=== PATIENT | female | born 1975 | race Caucasian/White ===

== ENCOUNTER 2017-01-18 11:15 | Emergency (ER) | payer BC ==
[~2017-01-18 11:15] MED LIST changes: -HYDROmorphone (DILAUDID) 2 MG/ML VIAL IVP PRN; -NS IV 1000 ML 1,000 ML IV SCH; -ONDANSETRON 4 MG/2 ML (SDV) Z0FRAN IVP ONE; -PROMETHAZINE INJ 25 MG/ML (PHENERGAN) AMP IM ONE; -PROMETHAZINE INJ 25 MG/ML (PHENERGAN) AMP IVP ONE
--- OUTSIDE RECORDS SUMMARY | 2017-01-18 11:24 | XMS REPORT | Clinical Summary ---
Author Author User, [email or web address] Hilaria Gallego DO, LEONILAP Address Unknown Phone Allergies, Adverse Reactions, Alerts Allergy Name Reaction Description Start Date Severity Status Provider No Known Allergies Elizabeth Adan Conditions or Problems Problem Name Problem Code Onset Date Status Entry Date Provider Comment Standard Description Annotate HEALTH SCREENING V70.0 Resolved Hilaria Gallego Routine general medical examination at a health care facility ABDOMINAL PAIN, GENERALIZED 789.07 Resolved Hilaria Gallego Abdominal pain, generalized DIARRHEA, ACUTE 787.91 Resolved Hilaria Gallego Diarrhea ABDOMINAL PAIN, GENERALIZED 789.07 Resolved Hilaria Gallego Abdominal pain, generalized IBS 564.1 Active Hilaria Gallego Irritable bowel syndrome GRIEF REACTION, ACUTE 309.0 Resolved Hilaria Gallego Adjustment disorder with depressed mood INSOMNIA 780.52 Active Hilaria Gallego Insomnia, unspecified SINUSITIS, SPHENOIDAL, ACUTE 461.3 Resolved Hilaria Gallego Acute sphenoidal sinusitis LARYNGITIS, ACUTE 464.00 Resolved Hilaria Gallego Acute laryngitis without mention of obstruction 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 Hilaria Gallego Trigeminal nerve disorder, unspecified MIGRAINE VARIANT 346.20 Active Hilaria Gallego Variants of migraine, not elsewhere classified, without mention of intractable migraine, without mention of status migrainosus MAMMOGRAM, ABNORMAL, LEFT 793.80 Resolved Hilaria Gallego Abnormal mammogram, unspecified UTI 599.0 Inactive Hilaria Gallego Urinary tract infection, site not specified DERMATITIS, CONTACT, NOS 692.9 Active Hilaria Gallego Contact dermatitis and other eczema, unspecified cause DEHYDRATION 276.51 Inactive Hilaria Gallego Dehydration NAUSEA 787.02 Active Hilaria Gallego Nausea alone Medication List Medication Instructions Start Date Stop Date Generic Name NDC Status Provider Patient Instruction TOPAMAX 25 MG TABS 1 PO BID TOPIRAMATE 74605198544 Active Hilaria Gallego DILAUDID 2 MG TABS 1 PO Daily for severe migraine. HYDROMORPHONE HCL 29151692062 Active Hilaria Gallego MUCINEX D 120-1200 MG [id number] 1 PO BID PSEUDOEPHEDRINE-GUAIFENESIN 17796625238 No Longer Active Hilaria Gallego DEMEROL 50 MG TABS 1 PO ONSET OF MIGRAINE MEPERIDINE HCL 33202440452 No Longer Active Hilaria Gallego CATAFLAM 50 MG TABS 1 PO BID prn headache DICLOFENAC POTASSIUM 60185530055 No Longer Active Hilaria Gallego DICLOFENAC POTASSIUM 50 MG TABS 1 PO BID PRN MIGRAINE DICLOFENAC POTASSIUM 61882359956 Active Hilaria Gallego MAXZIDE-25 TABS 1 TAB PO DAILY PRN DURING MONTHLY CYCLE TRIAMTERENE-HCTZ TABS 73962221069 Active Hilraia Gallego IBUPROFEN 200 MG TABS 800 MG TID PRN PAIN IBUPROFEN 01563054406 Active Hliaria Gallego ZYRTEC 10 MG TAB 1 PO QD CETIRIZINE HCL Active Hilaria Gallego XANAX 0.25 MG TABS 1 PO Q6hrs prn ALPRAZOLAM 32438722733 No Longer Active Hilaria Majo Gallego CELEXA 20 MG TABS 1 PO daily CITALOPRAM HYDROBROMIDE 81057848129 No Longer Active Hilaria Majo Gallego LEVSIN/SL 0.125 MG SUBL 1 tablet under tongue PO QID prn abdominal pain 07/25 HYOSCYAMINE SULFATE 56766283625 No Longer Active Hilaria Majo Gallego CARAFATE 1 GM/10ML SUSP 1 gram PO 30 minutes before meals and at bedtime prn SUCRALFATE 50969521144 No Longer Active Hilaria Majo Gallego FIORICET 50-325-40 MG TABS 2 PO q6hrs prn headache [id number] 28658015070 No Longer Active Hilariadajuan Gallego TRIAMCINOLONE ACETONIDE 0.1 % CREA apply a small amount to affected area BID for 5 days TRIAMCINOLONE ACETONIDE 01123522485 No Longer Active Hilariadajuan Gallego PYRIDIUM 200 MG TAB 1 PO TID prn urinary urgency PHENAZOPYRIDINE HCL 16442492812 No Longer Active Hilaria Majo Gallego BACTRIM DS 800-160 MG TAB 1 PO BID TRIMETHOPRIM- SULFAMETHOXAZOLE 68244170271 No Longer Active Hilariadajuan Gallego ORTHO EVRA 150-20 MCG/24HR PTWK as directed NORELGESTROMIN- ETH ESTRADIOL 19762851833 Active Radha Grewal TRI-SPRINTEC 0.18/0.215/0.25 MG-35 MCG TABS 1 PO daily NORGESTIM-ETH ESTRAD TRIPHASIC 52383862526 No Longer Active Hilaria Majo Gallego OMEPRAZOLE 20 MG CPDR 1 PO BID OMEPRAZOLE 96294121566 No Longer Active Hilaria Gallego ZOFRAN ODT 8 MG TBDP 1 PO q6hrs prn headache ONDANSETRON 38160378133 Active Hilaria Majo Gallego DEMEROL 50 MG TABS 1 PO q4hrs prn headache MEPERIDINE HCL 90092810717 Active Hilaria Majo Gallego BETY-D 12 HOUR 60-120 MG [id number] 1 PO BID FEXOFENADINE- PSEUDOEPHEDRINE 44505863999 No Longer Active Hilariadajuan Gallego AUGMENTIN 500-125 MG TAB 1 PO BID AMOXICILLIN-POT CLAVULANATE 61158138930 No Longer Active Hilaria BERRY'S NASAL SPRAY (DEXAMETHASONE, GENTAMICIN, SALINE) 2 puffs each nostril TID for [address] BERRY'Opal NASAL SPRAY ( DEXAMETHASONE, GENTAMICIN, SALINE) No Longer Active Radha Grewal KENALOG 0.1 % CREA apply to affected areas BID for 7 days TRIAMCINOLONE ACETONIDE No Longer Active Hilaria Gallego ORTHO EVRA 150-20 MCG/24HR PTWK as directed NORELGESTROMIN-ETH ESTRADIOL 49232917167 No Longer Active Marilee Grimm Immunizations Vaccine Administration Date Value Standard Description Comvax, combined Hemophilus influenza B and Hepatitis B virus vaccine Done Haemophilus influenzae type b conjugate and Hepatitis B vaccine Vital Signs Date Name Value Unit Range Description blood pressure, diastolic - 8462-4 81 mm[Hg] BP rogel blood pressure, systolic - 8480-6 123 mm[Hg] BP sys pulse rate E&M - 8867-4 72 /min Heart rate respiratory rate E&M - 9279-1 14 /min Resp rate temperature E&M 98.3 [degF] Body temperature weight E&M - 3141-9 140 [lb_av] Weight Measured blood pressure, diastolic - 8462-4 60 mm[Hg] BP rogel blood pressure, systolic - 8480-6 120 mm[Hg] BP sys pulse rate E&M - 8867-4 60 /min Heart rate respiratory rate E&M - 9279-1 14 /min Resp rate weight E&M - 3141-9 135 [lb_av] Weight Measured blood pressure, diastolic - 8462-4 60 mm[Hg] BP rogel blood pressure, systolic - 8480-6 120 mm[Hg] BP sys pulse rate E&M - 8867-4 80 /min Heart rate respiratory rate E&M - 9279-1 14 /min Resp rate temperature E&M 98.1 [degF] Body temperature blood pressure, diastolic - 8462-4 60 mm[Hg] BP rogel blood pressure, systolic - 8480-6 109 mm[Hg] BP sys pulse rate E&M - 8867-4 72 /min Heart rate respiratory rate E&M - 9279-1 14 /min Resp rate temperature E&M 98.6 [degF] Body temperature weight E&M - 3141-9 145 [lb_av] Weight Measured blood pressure, diastolic - 8462-4 68 mm[Hg] BP rogel blood pressure, systolic - 8480-6 124 mm[Hg] BP sys pulse rate E&M - 8867-4 66 /min Heart rate respiratory rate E&M - 9279-1 14 /min Resp rate Diagnostic Results Date Name Value Unit Range Description Clinical Lists Update: CBC,CMP IN PT LABS - Chemistry Estimated Glomerular Filtration Rate (calc) >60 mL/min/1.73m2 glucose, plasma fasting 90 mg/dL albumin, serum 4.1 g/dL alkaline phosphatase, serum 40 U/L urea nitrogen, blood 9 mg/dL calcium, serum 9.3 mg/dL chloride, serum 106 mmol/L carbon dioxide, venous blood 26 mmol/L sodium, serum 141 mmol/L bilirubin, serum, total 1.0 mg/dL alanine aminotransferase (SGPT), serum 9 U/L aspartate aminotransferase (SGOT), serum 13 U/L protein, total, serum 7.4 g/dL potassium, serum 3.9 mmol/L creatinine, serum 0.77 mg/dL Clinical Lists Update: CBC,CMP IN PT LABS - Hematology platelet count 233 10*3/mm3 erythrocyte (RBC) count 5.08 10*6/mm3 leukocyte count, blood 4.3 10*3/mm3 mean corpuscular volume, RBC 90 fL red blood cell distribution width 12.3 % hemoglobin, blood 15.4 g/dL hematocrit, blood 46 % Encounters Code Encounter Date Provider Facility CPT-24611 Ofc Vst, Est Level IV 16:46:57 CDT Hilaria Gallego DO, FACP CPT-89672 Ofc Vst, Est Level III 18:00:46 CDT Hilaria Gallego DO, FACP CPT-00889 Ofc Vst, Est Level IV 20:45:40 CDT Hilaria Gallego DO, FACP CPT-03019 Ofc Vst, Est Level IV 19:55:04 CDT Hilaria Gallego DO, FACP CPT-44391 Ofc Vst, Est Level III 16:48:19 CDT Hilaria Gallego DO, FACP CPT-51182 Ofc Vst, Est Level III 12:36:36 CDT Hilaria Gallego, DO, FACP CPT-46150 Ofc Vst, Est Level III 09:17:02 CDT Hilaria Majo Abebener Hilaria Opal Lashonda, DO, FACP CPT-98340 Ofc Vst, Est Level IV 11:18:38 CDT Hilaria Majo Abebener Hilaria Opal Lashonda, DO, FACP CPT-15731 Ofc Vst, Est Level III 13:39:42 CDT Hilaria Majo Joseph Lashonda, DO, FACP CPT-47814 Ofc Vst, Est Level IV 10:56:10 [employer]ATH[employer] SCRU[employer] Hilaria Majo Lashonda Hilariadajuan Gallego, DO, FACP CPT-09094 Ofc Vst, Est Level III 10:44:44 LEATH[employer]CRU[employer] Hilaria Majo Lashonda Gallego, DO, FACP CPT-43687 Ofc Vst, Est Level IV 13:09:53 CDT Hilaria Majo Abebener Hilaria Joseph Lashonda, DO, FACP CPT-48287 Ofc Vst, Est Level IV 09:33:25 CDT Hilaria Majo Lashonda Gallego, DO, FACP CPT-76112 Ofc Vst, Est Level IV 14:52:04 LEATH[employer] SCRU[employer] Hilaria Majo Lashonda Gallego, DO, FACP CPT-17385 Ofc Vst, New Level IV 12:52:22 [employer]ATH[employer] Hilaria Majo Lashonda Gallego, DO, FACP
--- OUTSIDE RECORDS SUMMARY | 2017-01-18 11:25 | XMS REPORT | Clinical Summary ---
Author Author User, [employer] Hilaria Gallego DO, LEONILAP Address Unknown Phone [...] 25 MG TABS 1 PO BID TOPIRAMATE 90011520853 Active Hilaria Gallego DILAUDID 2 MG TABS 1 PO Daily for severe migraine. HYDROMORPHONE HCL 99579903461 Active Hilaria Gallego MUCINEX D 120-1200 MG [id number] 1 PO BID PSEUDOEPHEDRINE-GUAIFENESIN 49838722742 No Longer Active Hilaria Gallego DEMEROL 50 MG TABS 1 PO ONSET OF MIGRAINE MEPERIDINE HCL 08930683516 No Longer Active Hilaria Gallego CATAFLAM 50 MG TABS 1 PO BID prn headache DICLOFENAC POTASSIUM 54675649692 No Longer Active Hilaria Gallego DICLOFENAC POTASSIUM 50 MG TABS 1 PO BID PRN MIGRAINE DICLOFENAC POTASSIUM 42134863511 Active Hilaria Gallego MAXZIDE-25 TABS 1 TAB PO DAILY PRN DURING MONTHLY CYCLE TRIAMTERENE-HCTZ TABS 98722869288 Active Hilaria Gallego IBUPROFEN 200 MG TABS 800 MG TID PRN PAIN IBUPROFEN 26007811423 Active Hilaria Gallego ZYRTEC 10 MG TAB 1 PO QD CETIRIZINE HCL Active Hilaria Gallego XANAX 0.25 MG TABS 1 PO Q6hrs prn ALPRAZOLAM 97679049921 No Longer Active Hilaria Majo Gallego CELEXA 20 MG TABS 1 PO daily CITALOPRAM HYDROBROMIDE 96917012726 No Longer Active Hilaria Majo Gallego LEVSIN/SL 0.125 MG SUBL 1 tablet under tongue PO QID prn abdominal pain 07/25 HYOSCYAMINE SULFATE 80481445730 No Longer Active Hilaria Majo Glalego CARAFATE 1 GM/10ML SUSP 1 gram PO 30 minutes before meals and at bedtime prn SUCRALFATE 19172672851 No Longer Active Hilaria Majo Gallego FIORICET 50-325-40 MG TABS 2 PO q6hrs prn headache [id number] 08892512750 No Longer Active Hilariadajuan Gallego TRIAMCINOLONE ACETONIDE 0.1 % CREA apply a small amount to affected area BID for 5 days TRIAMCINOLONE ACETONIDE 70686152034 No Longer Active Hilariadajuan Gallego PYRIDIUM 200 MG TAB 1 PO TID prn urinary urgency PHENAZOPYRIDINE HCL 05423437000 No Longer Active Hilaria Majo Gallego BACTRIM DS 800-160 MG TAB 1 PO BID TRIMETHOPRIM- SULFAMETHOXAZOLE 26299439010 No Longer Active Hilariadajuan Gallego ORTHO EVRA 150-20 MCG/24HR PTWK as directed NORELGESTROMIN- ETH ESTRADIOL 18366691281 Active Radha Grewal TRI-SPRINTEC 0.18/0.215/0.25 MG-35 MCG TABS 1 PO daily NORGESTIM-ETH ESTRAD TRIPHASIC 02437068993 No Longer Active Hilaria Majo Gallego OMEPRAZOLE 20 MG CPDR 1 PO BID OMEPRAZOLE 59620498736 No Longer Active Hilaria Gallego ZOFRAN ODT 8 MG TBDP 1 PO q6hrs prn headache ONDANSETRON 95355717951 Active Hilaria Majo Gallego DEMEROL 50 MG TABS 1 PO q4hrs prn headache MEPERIDINE HCL 62974140065 Active Hilaria Majo Gallego BETY-D 12 HOUR 60-120 MG [id number]-VAU 1 PO BID FEXOFENADINE- PSEUDOEPHEDRINE 68254873894 No Longer Active Hilariadajuan Gallego AUGMENTIN 500-125 MG TAB 1 PO BID AMOXICILLIN-POT CLAVULANATE 62512514332 No Longer Active Hilaria BERRY'S NASAL SPRAY (DEXAMETHASONE, GENTAMICIN, SALINE) 2 puffs each nostril TID for [address] BERRY'Opal NASAL SPRAY ( DEXAMETHASONE, GENTAMICIN, SALINE) No Longer Active Radha Grewal KENALOG 0.1 % CREA apply to affected areas BID for 7 days TRIAMCINOLONE ACETONIDE No Longer Active Hilaria Gallego ORTHO EVRA 150-20 MCG/24HR PTWK as directed NORELGESTROMIN-ETH ESTRADIOL 19098833104 No Longer Active Marilee Grimm Immunizations Vaccine [...] % Encounters Code Encounter Date Provider Facility CPT-70221 Ofc Vst, Est Level IV 16:46:57 CDT Hilaria Gallego DO, FACP CPT-67145 Ofc Vst, Est Level III 18:00:46 CDT Hilaria Gallego DO, FACP CPT-24904 Ofc Vst, Est Level IV 20:45:40 CDT Hilaria Gallego DO, FACP CPT-49036 Ofc Vst, Est Level IV 19:55:04 CDT Hilaria Gallego DO, FACP CPT-78107 Ofc Vst, Est Level III 16:48:19 CDT Hilaria Gallego DO, FACP CPT-74550 Ofc Vst, Est Level III 12:36:36 CDT Hilaria Gallego, DO, FACP CPT-87698 Ofc Vst, Est Level III 09:17:02 CDT Hilaria Majo Abebener Hilaria Opal Lashonda, DO, FACP CPT-30611 Ofc Vst, Est Level IV 11:18:38 CDT Hilaria Majo Abebener Hilaria Opal Lashonda, DO, FACP CPT-08210 Ofc Vst, Est Level III 13:39:42 CDT Hilaria Majo Joseph Lashonda, DO, FACP CPT-45928 Ofc Vst, Est Level IV 10:56:10 [employer]ANNEL SALES MANAGER Hilaria Majo Lashonda Hilariadajuan Gallego, DO, FACP CPT-99413 Ofc Vst, Est Level III 10:44:44 CHANNEL SALES MANAGER Hilaria Majo Lashonda Gallego, DO, FACP CPT-65479 Ofc Vst, Est Level IV 13:09:53 CDT Hilaria Majo Abebener Hilaria Joseph Lashonda, DO, FACP CPT-16455 Ofc Vst, Est Level IV 09:33:25 CDT Hilaria Majo Lashonda Gallego, DO, FACP CPT-86270 Ofc Vst, Est Level IV 14:52:04 CHANNEL SALES MANAGER Hilaria Majo Lashonda Gallego, DO, FACP CPT-02733 Ofc Vst, New Level IV 12:52:22 CHANNEL SALES MANAGER Hilaria Majo Lashonda Gallego, DO, FACP
--- OUTSIDE RECORDS SUMMARY | 2017-01-18 11:25 | XMS REPORT | Clinical Summary ---
Author Author User, [employer] Hilaria Gallego DO, LEONILAP Address Unknown Phone [...] 25 MG TABS 1 PO BID TOPIRAMATE 86944260227 Active Hilaria Gallego DILAUDID 2 MG TABS 1 PO Daily for severe migraine. HYDROMORPHONE HCL 48892832324 Active Hilaria Gallego MUCINEX D 120-1200 MG [id number] 1 PO BID PSEUDOEPHEDRINE-GUAIFENESIN 16491953027 No Longer Active Hilaria Gallego DEMEROL 50 MG TABS 1 PO ONSET OF MIGRAINE MEPERIDINE HCL 09498003137 No Longer Active Hilaria Gallego CATAFLAM 50 MG TABS 1 PO BID prn headache DICLOFENAC POTASSIUM 93846531931 No Longer Active Hilaria Gallego DICLOFENAC POTASSIUM 50 MG TABS 1 PO BID PRN MIGRAINE DICLOFENAC POTASSIUM 72300256959 Active Hilaria Gallego MAXZIDE-25 TABS 1 TAB PO DAILY PRN DURING MONTHLY CYCLE TRIAMTERENE-HCTZ TABS 29785915620 Active Hilaria Gallego IBUPROFEN 200 MG TABS 800 MG TID PRN PAIN IBUPROFEN 15680533000 Active Hilaria Gallego ZYRTEC 10 MG TAB 1 PO QD CETIRIZINE HCL Active Hilaria Gallego XANAX 0.25 MG TABS 1 PO Q6hrs prn ALPRAZOLAM 88856577597 No Longer Active Hilaria Majo Gallego CELEXA 20 MG TABS 1 PO daily CITALOPRAM HYDROBROMIDE 73414951042 No Longer Active Hilaria Majo Gallego LEVSIN/SL 0.125 MG SUBL 1 tablet under tongue PO QID prn abdominal pain 07/25 HYOSCYAMINE SULFATE 51173352835 No Longer Active Hilaria Majo Gallego CARAFATE 1 GM/10ML SUSP 1 gram PO 30 minutes before meals and at bedtime prn SUCRALFATE 13535634925 No Longer Active Hilaria Majo Gallego FIORICET 50-325-40 MG TABS 2 PO q6hrs prn headache [id number] 49978126415 No Longer Active Hilariadajuan Gallego TRIAMCINOLONE ACETONIDE 0.1 % CREA apply a small amount to affected area BID for 5 days TRIAMCINOLONE ACETONIDE 38836682981 No Longer Active Hilariadajuan Gallego PYRIDIUM 200 MG TAB 1 PO TID prn urinary urgency PHENAZOPYRIDINE HCL 50384665414 No Longer Active Hilaria Majo Gallego BACTRIM DS 800-160 MG TAB 1 PO BID TRIMETHOPRIM- SULFAMETHOXAZOLE 68135756456 No Longer Active Hilariadajuan Gallego ORTHO EVRA 150-20 MCG/24HR PTWK as directed NORELGESTROMIN- ETH ESTRADIOL 74454419547 Active Radha Grewal TRI-SPRINTEC 0.18/0.215/0.25 MG-35 MCG TABS 1 PO daily NORGESTIM-ETH ESTRAD TRIPHASIC 49452596018 No Longer Active Hilaria Majo Gallego OMEPRAZOLE 20 MG CPDR 1 PO BID OMEPRAZOLE 70447808747 No Longer Active Hilaria Gallego ZOFRAN ODT 8 MG TBDP 1 PO q6hrs prn headache ONDANSETRON 07902967773 Active Hilaria Majo Gallego DEMEROL 50 MG TABS 1 PO q4hrs prn headache MEPERIDINE HCL 51940989888 Active Hilaria Majo Gallego BETY-D 12 HOUR 60-120 MG [id number]-CFR 1 PO BID FEXOFENADINE- PSEUDOEPHEDRINE 82398753010 No Longer Active Hilariadajuan Gallego AUGMENTIN 500-125 MG TAB 1 PO BID AMOXICILLIN-POT CLAVULANATE 30297537249 No Longer Active Hilaria BERRY'S NASAL SPRAY (DEXAMETHASONE, GENTAMICIN, SALINE) 2 puffs each nostril TID for [address] BERRY'Opal NASAL SPRAY ( DEXAMETHASONE, GENTAMICIN, SALINE) No Longer Active Radha Grewal KENALOG 0.1 % CREA apply to affected areas BID for 7 days TRIAMCINOLONE ACETONIDE No Longer Active Hilaria Gallego ORTHO EVRA 150-20 MCG/24HR PTWK as directed NORELGESTROMIN-ETH ESTRADIOL 24891065848 No Longer Active Marilee Grimm Immunizations Vaccine [...] % Encounters Code Encounter Date Provider Facility CPT-22982 Ofc Vst, Est Level IV 16:46:57 CDT Hilaria Gallego DO, FACP CPT-55588 Ofc Vst, Est Level III 18:00:46 CDT Hilaria Gallego DO, FACP CPT-25215 Ofc Vst, Est Level IV 20:45:40 CDT Hilaria Gallego DO, FACP CPT-71552 Ofc Vst, Est Level IV 19:55:04 CDT Hilaria Gallego DO, FACP CPT-58928 Ofc Vst, Est Level III 16:48:19 CDT Hilaria Gallego DO, FACP CPT-94462 Ofc Vst, Est Level III 12:36:36 CDT Hilaria Gallego, DO, FACP CPT-81725 Ofc Vst, Est Level III 09:17:02 CDT Hilaria Majo Abebener Hilaria Opal Lashonda, DO, FACP CPT-87728 Ofc Vst, Est Level IV 11:18:38 CDT Hilaria Majo Abebener Hilaria Opal Lashonda, DO, FACP CPT-54119 Ofc Vst, Est Level III 13:39:42 CDT Hilaria Majo Joseph Lashonda, DO, FACP CPT-43308 Ofc Vst, Est Level IV 10:56:10 ACADEMIC SUPPORT SPECIALIST Hilaria Majo Lashonda Hilariadajuan Gallego, DO, FACP CPT-94836 Ofc Vst, Est Level III 10:44:44 ACADEMIC SUPPORT SPECIALIST Hilaria Majo Lashonda Gallego, DO, FACP CPT-03526 Ofc Vst, Est Level IV 13:09:53 CDT Hilaria Majo Abebener Hilaria Joseph Lashonda, DO, FACP CPT-46497 Ofc Vst, Est Level IV 09:33:25 CDT Hilaria Majo Lashonda Gallego, DO, FACP CPT-07527 Ofc Vst, Est Level IV 14:52:04 ACADEMIC SUPPORT SPECIALIST Hilaria Maoj Lashonda Gallego, DO, FACP CPT-95405 Ofc Vst, New Level IV 12:52:22 ACADEMIC SUPPORT SPECIALIST Hilaria Majo Lashonda Gallego, DO, FACP
--- OUTSIDE RECORDS SUMMARY | 2017-01-18 11:25 | XMS REPORT | Clinical Summary ---
Author Author User, [employer] Hilaria Gallego DO, LEONILAP Address Unknown Phone [...] 25 MG TABS 1 PO BID TOPIRAMATE 32462956463 Active Hilaria Gallego DILAUDID 2 MG TABS 1 PO Daily for severe migraine. HYDROMORPHONE HCL 78781785510 Active Hilaria Gallego MUCINEX D 120-1200 MG [id number] 1 PO BID PSEUDOEPHEDRINE-GUAIFENESIN 10497893542 No Longer Active Hilaria Gallego DEMEROL 50 MG TABS 1 PO ONSET OF MIGRAINE MEPERIDINE HCL 59509596192 No Longer Active Hilaria Gallego CATAFLAM 50 MG TABS 1 PO BID prn headache DICLOFENAC POTASSIUM 63159403368 No Longer Active Hilaria Gallego DICLOFENAC POTASSIUM 50 MG TABS 1 PO BID PRN MIGRAINE DICLOFENAC POTASSIUM 43145000998 Active Hilaria Gallego MAXZIDE-25 TABS 1 TAB PO DAILY PRN DURING MONTHLY CYCLE TRIAMTERENE-HCTZ TABS 30510679297 Active Hilaria Gallego IBUPROFEN 200 MG TABS 800 MG TID PRN PAIN IBUPROFEN 16349678088 Active Hilaria Gallego ZYRTEC 10 MG TAB 1 PO QD CETIRIZINE HCL Active Hilaria Gallego XANAX 0.25 MG TABS 1 PO Q6hrs prn ALPRAZOLAM 12800839082 No Longer Active Hilaria Majo Gallego CELEXA 20 MG TABS 1 PO daily CITALOPRAM HYDROBROMIDE 41193434896 No Longer Active Hilaria Majo Gallego LEVSIN/SL 0.125 MG SUBL 1 tablet under tongue PO QID prn abdominal pain 07/25 HYOSCYAMINE SULFATE 33165261157 No Longer Active Hilaria Majo Gallego CARAFATE 1 GM/10ML SUSP 1 gram PO 30 minutes before meals and at bedtime prn SUCRALFATE 35629108366 No Longer Active Hilaria Majo Gallego FIORICET 50-325-40 MG TABS 2 PO q6hrs prn headache [id number] 48872842799 No Longer Active Hilariadajuan Gallego TRIAMCINOLONE ACETONIDE 0.1 % CREA apply a small amount to affected area BID for 5 days TRIAMCINOLONE ACETONIDE 85005179111 No Longer Active Hilariadajuan Gallego PYRIDIUM 200 MG TAB 1 PO TID prn urinary urgency PHENAZOPYRIDINE HCL 53879485788 No Longer Active Hilaria Majo Gallego BACTRIM DS 800-160 MG TAB 1 PO BID TRIMETHOPRIM- SULFAMETHOXAZOLE 89207813960 No Longer Active Hilariadajuan Gallego ORTHO EVRA 150-20 MCG/24HR PTWK as directed NORELGESTROMIN- ETH ESTRADIOL 41570219335 Active Radha Grewal TRI-SPRINTEC 0.18/0.215/0.25 MG-35 MCG TABS 1 PO daily NORGESTIM-ETH ESTRAD TRIPHASIC 95815815635 No Longer Active Hilaria Majo Gallego OMEPRAZOLE 20 MG CPDR 1 PO BID OMEPRAZOLE 95745313952 No Longer Active Hilaria Gallego ZOFRAN ODT 8 MG TBDP 1 PO q6hrs prn headache ONDANSETRON 14060864471 Active Hilaria Majo Gallego DEMEROL 50 MG TABS 1 PO q4hrs prn headache MEPERIDINE HCL 08406001823 Active Hilaria Majo Gallego BETY-D 12 HOUR 60-120 MG [id number]-[id number] 1 PO BID FEXOFENADINE- PSEUDOEPHEDRINE 67116037431 No Longer Active Hilariadajuan Gallego AUGMENTIN 500-125 MG TAB 1 PO BID AMOXICILLIN-POT CLAVULANATE 87401015154 No Longer Active Hilaria BERRY'S NASAL SPRAY (DEXAMETHASONE, GENTAMICIN, SALINE) 2 puffs each nostril TID for [address] BERRY'Opal NASAL SPRAY ( DEXAMETHASONE, GENTAMICIN, SALINE) No Longer Active Radha Grewal KENALOG 0.1 % CREA apply to affected areas BID for 7 days TRIAMCINOLONE ACETONIDE No Longer Active Hilaria Gallego ORTHO EVRA 150-20 MCG/24HR PTWK as directed NORELGESTROMIN-ETH ESTRADIOL 42025093475 No Longer Active Marilee Grimm Immunizations Vaccine [...] % Encounters Code Encounter Date Provider Facility CPT-02577 Ofc Vst, Est Level IV 16:46:57 CDT Hilaria Gallego DO, FACP CPT-17194 Ofc Vst, Est Level III 18:00:46 CDT Hilaria Gallego DO, FACP CPT-97186 Ofc Vst, Est Level IV 20:45:40 CDT Hilaria Gallego DO, FACP CPT-84828 Ofc Vst, Est Level IV 19:55:04 CDT Hilaria Gallego DO, FACP CPT-46214 Ofc Vst, Est Level III 16:48:19 CDT Hilaria Gallego DO, FACP CPT-90660 Ofc Vst, Est Level III 12:36:36 CDT Hilaria Gallego, DO, FACP CPT-73118 Ofc Vst, Est Level III 09:17:02 CDT Hilaria Majo Abebener Hilaria Opal Lashonda, DO, FACP CPT-09739 Ofc Vst, Est Level IV 11:18:38 CDT Hilaria Majo Abebener Hilaria Opal Lashonda, DO, FACP CPT-11744 Ofc Vst, Est Level III 13:39:42 CDT Hilaria Majo Joseph Lashonda, DO, FACP CPT-42176 Ofc Vst, Est Level IV 10:56:10 SNOW MAKER Hilaria Majo Lashonda Hilariadajuan Gallego, DO, FACP CPT-43527 Ofc Vst, Est Level III 10:44:44 SNOW MAKER Hilaria Majo Lashonda Gallego, DO, FACP CPT-43290 Ofc Vst, Est Level IV 13:09:53 CDT Hilaria Majo Abebener Hilaria Joseph Lashonda, DO, FACP CPT-50923 Ofc Vst, Est Level IV 09:33:25 CDT Hilaria Majo Lashonda Gallego, DO, FACP CPT-18404 Ofc Vst, Est Level IV 14:52:04 SNOW MAKER Hilaria Majo Lashonda Gallego, DO, FACP CPT-21809 Ofc Vst, New Level IV 12:52:22 SNOW MAKER Hilaria Majo Lashonda Gallego, DO, FACP
--- OUTSIDE RECORDS SUMMARY | 2017-01-18 11:26 | XMS REPORT | Continuity of Care Document ---
Author Author [facility] Organization [facility] Address Unknown Phone Unavailable Allergies Active Description Code Type Severity Reaction Onset Reported/Identified Relationship to Patient Clinical Status Yes No Known Drug Allergies [id number] Drug Allergy Unknown N/ A 08/26/2014 Medications Problems Date Dx Coded Attending Type Code Diagnosis Diagnosed By 08/27/2014 QUIROGA DO, ARIEL Ot 276.51 08/27/2014 QUIROGA DO, ARIEL Ot 346.90 09/17/2014 QUIROGA DO, ARIEL Ot 784.0 2015 Ot 793.80 2015 Ot 793.82 2015 Ot V76.12 2015 QUIROGA DO, ARIEL Ot 793.80 04/15/2015 QUIROGA DO, ARIEL Ot 784.0 04/15/2015 QUIROGA DO, ARIEL Ot Z12.31 04/20/2015 QUIROGA DO, ARIEL Ot 784.0 04/20/2015 QUIROGA DO, ARIEL Ot Z12.31 05/03/2015 QUIROGA DO, ARIEL Ot 784.0 05/03/2015 QUIROGA DO, ARIEL Ot Z12.31 08/04/2015 QUIROGA DO, ARIEL Ot 784.0 08/04/2015 QUIROGA DO, ARIEL Ot Z12.31 Procedures Results Encounters ACCT No. Visit Date/Time Discharge Status Pt. Type Provider Facility Loc./Unit Complaint [id number] 04/08/2015 07:27:00 2014 23:59:59 CLS Outpatient QUIROGA DO, ARIEL [facility] RAD [id number] 10/11/2014 07:30:00 2014 23:59:59 CLS Preadmit QUIROGA DO, ARIEL [facility] RAD [id number] 09/02/2014 14:27:00 2014 23:59:59 CLS Outpatient QUIROGA DO, ARIEL [facility] RAD [id number] 08/26/2014 15:05:00 2014 12:15:00 DIS Inpatient ARIEL QUIROGA DO [facility] 4TH [id number] 03/26/2013 14:11:00 2012 23:59:59 CLS Outpatient [id number] 10/02/2012 07:22:00 2012 23:59:59 CLS Outpatient ARIEL QUIROGA DO [facility] RAD [id number] 08/27/2014 10:10:00 Document Registration [id number] 09/16/2012 07:17:00 Document Registration [id number] 09/18/2011 10:28:00 Document Registration
--- OUTSIDE RECORDS SUMMARY | 2017-01-18 11:26 | XMS REPORT | Clinical Summary ---
Author Author User, [employer] Organization Hilaria Gallego DO, LEONILAP Address Unknown [...] pain, generalized DIARRHEA, ACUTE 787.91 Resolved Hilaria Galelgo Diarrhea ABDOMINAL PAIN, GENERALIZED 789.07 Resolved Hilaria [...] 25 MG TABS 1 PO BID TOPIRAMATE 97600612274 Active Hilaria Gallego DILAUDID 2 MG TABS 1 PO Daily for severe migraine. HYDROMORPHONE HCL 66162922700 Active Hilaria Gallego MUCINEX D 120-1200 MG [id number] 1 PO BID PSEUDOEPHEDRINE-GUAIFENESIN 91833957915 No Longer Active Hilaria Gallego DEMEROL 50 MG TABS 1 PO ONSET OF MIGRAINE MEPERIDINE HCL 73829731522 No Longer Active Hilaria Gallego CATAFLAM 50 MG TABS 1 PO BID prn headache DICLOFENAC POTASSIUM 11604126856 No Longer Active Hilaria Gallego DICLOFENAC POTASSIUM 50 MG TABS 1 PO BID PRN MIGRAINE DICLOFENAC POTASSIUM 91761637895 Active Hilaria Gallego MAXZIDE-25 TABS 1 TAB PO DAILY PRN DURING MONTHLY CYCLE TRIAMTERENE-HCTZ TABS 55709998435 Active Hilaria Gallego IBUPROFEN 200 MG TABS 800 MG TID PRN PAIN IBUPROFEN 17383840603 Active Hilaria Gallego ZYRTEC 10 MG TAB 1 PO QD CETIRIZINE HCL Active Hilaria Gallego XANAX 0.25 MG TABS 1 PO Q6hrs prn ALPRAZOLAM 74953751989 No Longer Active Hilaria Majo Gallego CELEXA 20 MG TABS 1 PO daily CITALOPRAM HYDROBROMIDE 82033826256 No Longer Active Hilaria Majo Gallego LEVSIN/SL 0.125 MG SUBL 1 tablet under tongue PO QID prn abdominal pain 07/25 HYOSCYAMINE SULFATE 00124690832 No Longer Active Hilaria Majo Gallego CARAFATE 1 GM/10ML SUSP 1 gram PO 30 minutes before meals and at bedtime prn SUCRALFATE 36235896295 No Longer Active Hilaria Majo Gallego FIORICET 50-325-40 MG TABS 2 PO q6hrs prn headache [id number] 85356390642 No Longer Active Hilariadajuan Gallego TRIAMCINOLONE ACETONIDE 0.1 % CREA apply a small amount to affected area BID for 5 days TRIAMCINOLONE ACETONIDE 25540857134 No Longer Active Hilariadajuan Gallego PYRIDIUM 200 MG TAB 1 PO TID prn urinary urgency PHENAZOPYRIDINE HCL 25940582833 No Longer Active Hilaria Majo Gallego BACTRIM DS 800-160 MG TAB 1 PO BID TRIMETHOPRIM- SULFAMETHOXAZOLE 52623620256 No Longer Active Hilariadajuan Gallego ORTHO EVRA 150-20 MCG/24HR PTWK as directed NORELGESTROMIN- ETH ESTRADIOL 51731778601 Active Radha Grewal TRI-SPRINTEC 0.18/0.215/0.25 MG-35 MCG TABS 1 PO daily NORGESTIM-ETH ESTRAD TRIPHASIC 52648564902 No Longer Active Hilaria Majo Gallego OMEPRAZOLE 20 MG CPDR 1 PO BID OMEPRAZOLE 74177247879 No Longer Active Hilaria Gallego ZOFRAN ODT 8 MG TBDP 1 PO q6hrs prn headache ONDANSETRON 08938529671 Active Hilaria Majo Gallego DEMEROL 50 MG TABS 1 PO q4hrs prn headache MEPERIDINE HCL 88713273505 Active Hilaria Majo Gallego BETY-D 12 HOUR 60-120 MG [id number]-[id number] 1 PO BID FEXOFENADINE- PSEUDOEPHEDRINE 67369798091 No Longer Active Hilariadajuan Gallego AUGMENTIN 500-125 MG TAB 1 PO BID AMOXICILLIN-POT CLAVULANATE 54398167791 No Longer Active Hilaria BERRY'S NASAL SPRAY (DEXAMETHASONE, GENTAMICIN, SALINE) 2 puffs each nostril TID for [address] BERRY'Opal NASAL SPRAY ( DEXAMETHASONE, GENTAMICIN, SALINE) No Longer Active Radha Grewal KENALOG 0.1 % CREA apply to affected areas BID for 7 days TRIAMCINOLONE ACETONIDE No Longer Active Hilaria Gallego ORTHO EVRA 150-20 MCG/24HR PTWK as directed NORELGESTROMIN-ETH ESTRADIOL 25583608826 No Longer Active Marilee Grimm Immunizations Vaccine [...] % Encounters Code Encounter Date Provider Facility CPT-41869 Ofc Vst, Est Level IV 16:46:57 CDT Hilaria Gallego DO, FACP CPT-04886 Ofc Vst, Est Level III 18:00:46 CDT Hilaria Gallego DO, FACP CPT-48874 Ofc Vst, Est Level IV 20:45:40 CDT Hilaria Gallego DO, FACP CPT-15525 Ofc Vst, Est Level IV 19:55:04 CDT Hilaria Gallego DO, FACP CPT-90935 Ofc Vst, Est Level III 16:48:19 CDT Hilaria Gallego DO, FACP CPT-39035 Ofc Vst, Est Level III 12:36:36 CDT Hilaria Gallego, DO, FACP CPT-05529 Ofc Vst, Est Level III 09:17:02 CDT Hilaria Majo Abebener Hilaria Opal Lashonda, DO, FACP CPT-51307 Ofc Vst, Est Level IV 11:18:38 CDT Hilaria Majo Abebener Hilaria Opal Lashonda, DO, FACP CPT-55087 Ofc Vst, Est Level III 13:39:42 CDT Hilaria Majo Joseph Lashonda, DO, FACP CPT-67903 Ofc Vst, Est Level IV 10:56:10 BURNISHER Hilaria Majo Lashonda Hilariadajuan Gallego, DO, FACP CPT-95114 Ofc Vst, Est Level III 10:44:44 BURNISHER Hilaria Majo Lashonda Gallego, DO, FACP CPT-53018 Ofc Vst, Est Level IV 13:09:53 CDT Hilaria Majo Abebener Hilaria Joseph Lashonda, DO, FACP CPT-89185 Ofc Vst, Est Level IV 09:33:25 CDT Hilaria Majo Lashonda Gallego, DO, FACP CPT-90100 Ofc Vst, Est Level IV 14:52:04 BURNISHER Hilaria Majo Lashonda Gallego, DO, FACP CPT-48004 Ofc Vst, New Level IV 12:52:22 BURNISHER Hilaria Majo Lashonda Gallego, DO, FACP
--- OUTSIDE RECORDS SUMMARY | 2017-01-18 11:26 | XMS REPORT | Clinical Summary ---
Author Author User, [employer] Organization Hilaria Gallego DO, LEONILAP Address Unknown [...] 25 MG TABS 1 PO BID TOPIRAMATE 13732119934 Active Hilaria Gallego DILAUDID 2 MG TABS 1 PO Daily for severe migraine. HYDROMORPHONE HCL 29993652051 Active Hilaria Gallego MUCINEX D 120-1200 MG [id number] 1 PO BID PSEUDOEPHEDRINE-GUAIFENESIN 71915144764 No Longer Active Hilaria Gallego DEMEROL 50 MG TABS 1 PO ONSET OF MIGRAINE MEPERIDINE HCL 29750410512 No Longer Active Hilaria Gallego CATAFLAM 50 MG TABS 1 PO BID prn headache DICLOFENAC POTASSIUM 51064838171 No Longer Active Hilaria Gallego DICLOFENAC POTASSIUM 50 MG TABS 1 PO BID PRN MIGRAINE DICLOFENAC POTASSIUM 78532204372 Active Hilaria Gallego MAXZIDE-25 TABS 1 TAB PO DAILY PRN DURING MONTHLY CYCLE TRIAMTERENE-HCTZ TABS 90826679395 Active Hilaria Gallego IBUPROFEN 200 MG TABS 800 MG TID PRN PAIN IBUPROFEN 71257464109 Active Hilaria Gallego ZYRTEC 10 MG TAB 1 PO QD CETIRIZINE HCL Active Hilaria Gallego XANAX 0.25 MG TABS 1 PO Q6hrs prn ALPRAZOLAM 93928138059 No Longer Active Hilaria Majo Gallego CELEXA 20 MG TABS 1 PO daily CITALOPRAM HYDROBROMIDE 19913113150 No Longer Active Hilaria Majo Gallego LEVSIN/SL 0.125 MG SUBL 1 tablet under tongue PO QID prn abdominal pain 07/25 HYOSCYAMINE SULFATE 49196387832 No Longer Active Hilaria Majo Gallego CARAFATE 1 GM/10ML SUSP 1 gram PO 30 minutes before meals and at bedtime prn SUCRALFATE 79195123552 No Longer Active Hilaria Majo Gallego FIORICET 50-325-40 MG TABS 2 PO q6hrs prn headache [id number] 61494580167 No Longer Active Hilariadajuan Gallego TRIAMCINOLONE ACETONIDE 0.1 % CREA apply a small amount to affected area BID for 5 days TRIAMCINOLONE ACETONIDE 31619732322 No Longer Active Hilariadajuan Gallego PYRIDIUM 200 MG TAB 1 PO TID prn urinary urgency PHENAZOPYRIDINE HCL 04278470510 No Longer Active Hilaria Majo Galelgo BACTRIM DS 800-160 MG TAB 1 PO BID TRIMETHOPRIM- SULFAMETHOXAZOLE 73029465361 No Longer Active Hilariadajuan Gallego ORTHO EVRA 150-20 MCG/24HR PTWK as directed NORELGESTROMIN- ETH ESTRADIOL 84607535653 Active Radha Grewal TRI-SPRINTEC 0.18/0.215/0.25 MG-35 MCG TABS 1 PO daily NORGESTIM-ETH ESTRAD TRIPHASIC 68774128304 No Longer Active Hilaria Majo Gallego OMEPRAZOLE 20 MG CPDR 1 PO BID OMEPRAZOLE 24695137532 No Longer Active Hilaria Gallego ZOFRAN ODT 8 MG TBDP 1 PO q6hrs prn headache ONDANSETRON 18554568821 Active Hilaria Majo Gallego DEMEROL 50 MG TABS 1 PO q4hrs prn headache MEPERIDINE HCL 32452441808 Active Hilaria Majo Gallego BETY-D 12 HOUR 60-120 MG [id number]-BCA 1 PO BID FEXOFENADINE- PSEUDOEPHEDRINE 73476341111 No Longer Active Hilariadajuan Gallego AUGMENTIN 500-125 MG TAB 1 PO BID AMOXICILLIN-POT CLAVULANATE 80028725501 No Longer Active Hilaria BERRY'S NASAL SPRAY (DEXAMETHASONE, GENTAMICIN, SALINE) 2 puffs each nostril TID for [address] BERRY'Opal NASAL SPRAY ( DEXAMETHASONE, GENTAMICIN, SALINE) No Longer Active Radha Grewal KENALOG 0.1 % CREA apply to affected areas BID for 7 days TRIAMCINOLONE ACETONIDE No Longer Active Hilaria Gallego ORTHO EVRA 150-20 MCG/24HR PTWK as directed NORELGESTROMIN-ETH ESTRADIOL 77247323943 No Longer Active Marilee Grimm Immunizations Vaccine [...] % Encounters Code Encounter Date Provider Facility CPT-21241 Ofc Vst, Est Level IV 16:46:57 CDT Hilaria Gallego DO, FACP CPT-21374 Ofc Vst, Est Level III 18:00:46 CDT Hilaria Gallego DO, FACP CPT-38812 Ofc Vst, Est Level IV 20:45:40 CDT Hilaria Gallego DO, FACP CPT-13703 Ofc Vst, Est Level IV 19:55:04 CDT Hilaria Gallego DO, FACP CPT-41679 Ofc Vst, Est Level III 16:48:19 CDT Hilaria Gallego DO, FACP CPT-99467 Ofc Vst, Est Level III 12:36:36 CDT Hilaria Gallego, DO, FACP CPT-88775 Ofc Vst, Est Level III 09:17:02 CDT Hilaria Majo Abebener Hilaria Opal Lashonda, DO, FACP CPT-24847 Ofc Vst, Est Level IV 11:18:38 CDT Hilaria Majo Abebener Hilaria Opal Lashonda, DO, FACP CPT-75040 Ofc Vst, Est Level III 13:39:42 CDT Hilaria Majo Joseph Lashonda, DO, FACP CPT-64782 Ofc Vst, Est Level IV 10:56:10 [employer]EARCH ASSISTANT MEMBER Hilaria Majo Lashonda Hilariadajuan Gallego, DO, FACP CPT-42807 Ofc Vst, Est Level III 10:44:44 RESEARCH ASSISTANT MEMBER Hilaria Majo Lashonda Gallego, DO, FACP CPT-56334 Ofc Vst, Est Level IV 13:09:53 CDT Hilaria Majo Abebener Hilaria Joseph Lashonda, DO, FACP CPT-92839 Ofc Vst, Est Level IV 09:33:25 CDT Hilaria Majo Lashonda Gallego, DO, FACP CPT-37693 Ofc Vst, Est Level IV 14:52:04 RESEARCH ASSISTANT MEMBER Hilaria Majo Lashonda Gallego, DO, FACP CPT-97598 Ofc Vst, New Level IV 12:52:22 RESEARCH ASSISTANT MEMBER Hilaria Majo Lashonda Gallego, DO, FACP
== END 2017-01-18 12:40 | disposition left against medical advice (07) ==
LOC: EDUNIT# 11:15 → ER 11:19
DX: G43.909 Migraine, unspecified, not intractable, without status migrainosus (principal)

== ENCOUNTER → 2017-01-18 | Outpatient (CLI) | payer BC ==
[~2017-01-18] VITALS: Ht 165.1 cm; Wt 61.0 kg
[~2017-01-18] MED LIST: CETI10TA17 PO; DICL50TA4 PO; GUAI-365 PO; HYDROmorphone (DILAUDID) 2 MG/ML VIAL IVP PRN; IBUP-15 PO; MEPE50TA PO; NORE1PAT7 TD; NS IV 1000 ML 1,000 ML IV SCH; ONDA8TAB13 PO; ONDANSETRON 4 MG/2 ML (SDV) Z0FRAN IVP ONE; PROMETHAZINE INJ 25 MG/ML (PHENERGAN) AMP IM ONE; PROMETHAZINE INJ 25 MG/ML (PHENERGAN) AMP IVP ONE; TRIA1TAB3 PO
[2017-01-18 14:08] VITALS: BP 104/71
== END ==
LOC: SDC 12:53
PROVIDERS: ATTEND Internal Medicine
DX: G43.909 Migraine, unspecified, not intractable, without status migrainosus (principal); R11.2 Nausea with vomiting, unspecified; E86.0 Dehydration
CPT/HCPCS: 96360; 96372; 96375

== ENCOUNTER → 2017-08-26 | Outpatient (CLI) | payer BC ==
[~2017-08-26] MED LIST changes: +RT-ALBUTEROL SULF 2.5 MG/3 ML PRE-MIX VIAL INH ONE
== END ==
LOC: RT 16:42
PROVIDERS: ATTEND Internal Medicine
DX: J45.909 Unspecified asthma, uncomplicated (principal)
CPT/HCPCS: 94060; 94726; 94729

== ENCOUNTER → 2017-10-17 | Outpatient (CLI) | payer BC ==
[~2017-10-17] MED LIST changes: -RT-ALBUTEROL SULF 2.5 MG/3 ML PRE-MIX VIAL INH ONE
--- NOTE | 2017-10-17 14:19 | Diagnostic Imaging Report ---
INDICATION: Pneumonia. COMPARISON: None. FINDINGS: Two views of the chest are obtained. Heart size is normal. The pulmonary vessels appear unremarkable. There is no pneumothorax, mediastinal widening or pleural fluid. There is moderate to severe pectus excavatum deformity. The lungs are clear. The osseous structures are otherwise unremarkable. IMPRESSION: No acute abnormality is seen. There is prominent pectus excavatum deformity. Dictated by: Dictated on workstation # [id number]
== END ==
LOC: RAD 13:57
PROVIDERS: ATTEND Internal Medicine
DX: J18.9 Pneumonia, unspecified organism (principal); Q33.8 Other congenital malformations of lung
CPT/HCPCS: 71046

== ENCOUNTER → 2018-02-21 | Outpatient (CLI) | payer BC ==
--- NOTE | 2018-02-21 15:56 | Diagnostic Imaging Report ---
INDICATION: Fall with right hand pain. AP, oblique, and lateral views of the right hand are obtained. No fracture or acute bony abnormality is seen. IMPRESSION: Negative right hand. Dictated by: Dictated on workstation # [id number]
--- NOTE | 2018-02-21 16:04 | Diagnostic Imaging Report ---
INDICATION: Fall with right wrist injury. AP, oblique, and lateral views of the right wrist are obtained. No fracture or acute bony abnormality is seen. Joint spaces are unremarkable. IMPRESSION: Negative right wrist. Dictated by: Dictated on workstation # [id number]
== END ==
LOC: RAD 15:31
PROVIDERS: ATTEND Nurse Practitioner Family
DX: S69.91XA Unspecified injury of right wrist, hand and finger(s), initial encounter (principal); M79.641 Pain in right hand; W19.XXXA Unspecified fall, initial encounter
CPT/HCPCS: 73110; 73130

== ENCOUNTER 2018-03-24 20:50 | Observation (INO) | payer BC ==
[~2018-03-24] VITALS: Ht 166.4 cm; Wt 64.1 kg
--- OUTSIDE RECORDS SUMMARY | 2018-03-24 20:54 | XMS REPORT | Clinical Summary ---
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
--- OUTSIDE RECORDS SUMMARY | 2018-03-24 20:56 | XMS REPORT | Continuity of Care Document ---
Author Author [facility] Organization [facility] Address Unknown Phone Unavailable Allergies Active Description Code Type Severity Reaction Onset Reported/Identified Relationship to Patient Clinical Status Yes No Known Drug Allergies [id number] Drug Allergy Unknown N/A 08/26/2014 Medications There is no data. Problems Date Dx Coded Attending Type Code Diagnosis Diagnosed By 08/27/2014 ARIEL QUIROGA DO Ot 276.51 DEHYDRATION 08/27/2014 KIMBER TREVIZO ARIEL Ot 346.90 MIGRAINE UNSPECIFIED W/O INTRACT MGRN W/ 09/17/2014 KIMBER TREVIZO ARIEL Ot 784.0 2015 Ot 793.80 2015 Ot 793.82 2015 Ot V76.12 2015 KIMBER DO, ARIEL Ot 793.80 04/15/2015 QUIROGA DO, ARIEL Ot 784.0 04/15/2015 QUIROGA DO, ARIEL Ot Z12.31 04/20/2015 QUIROGA DO, ARIEL Ot 784.0 04/20/2015 QUIROGA DO, ARIEL Ot Z12.31 05/03/2015 QUIROGA DO, ARIEL Ot 784.0 05/03/2015 QUIROGA DO, ARIEL Ot Z12.31 08/04/2015 QUIROGA DO, ARIEL Ot 784.0 08/04/2015 QUIROGA DO, ARIEL Ot Z12.31 01/18/2017 QUIROGA DO, ARIEL Ot 784.0 HEADACHE 01/18/2017 QUIROGA DO, ARIEL Ot Z12.31 ENCNTR SCREEN MAMMOGRAM FOR MALIGNANT NE 01/23/2017 KIMBER TREVIZO ARIEL Ot E86.0 DEHYDRATION 01/23/2017 KIMBER TREVIZO ARIEL Ot G43.909 MIGRAINE, UNSP, NOT INTRACTABLE, WITHOUT 01/23/2017 KIMBER TREVIZO RAIEL Ot R11.2 NAUSEA WITH VOMITING, UNSPECIFIED 02/05/2017 KIMBER TREVIZO ARIEL Ot E86.0 DEHYDRATION 02/05/2017 QUIROGAARIEL HEAD DO Ot G43.909 MIGRAINE, UNSP, NOT INTRACTABLE, WITHOUT 02/05/2017 ARIEL QUIROGA DO Ot R11.2 NAUSEA WITH VOMITING, UNSPECIFIED 08/27/2017 ARIEL QUIROGA DO Ot J45.909 UNSPECIFIED ASTHMA, UNCOMPLICATED 09/01/2017 QUIROGADERIC HEAD DOI Ot J45.909 UNSPECIFIED ASTHMA, UNCOMPLICATED 09/16/2017 QUIROGAARIEL HEAD DO Ot J45.909 UNSPECIFIED ASTHMA, UNCOMPLICATED 10/18/2017 DERIC QUIROGA DOI Ot J18.9 PNEUMONIA, UNSPECIFIED ORGANISM 10/18/2017 QUIROGADERIC HEAD DOI Ot 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 10/30/2017 ARIEL QUIROGA DO Ot J18.9 PNEUMONIA, UNSPECIFIED ORGANISM 10/30/2017 QUIROGASONIDO TREVIZO ARIEL Ot 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 01/28/2018 ARIEL QUIROGA DO Ot 611.72 LUMP OR MASS IN BREAST 01/28/2018 ARIEL QUIROGA DO Ot 793.80 UNSPEC ABNORMAL MAMMOGRAM 02/24/2018 ALON BROWN EXHIBIT BUILDER Ot M79.641 PAIN IN RIGHT HAND 02/24/2018 ALON BROWN APRN Ot S69.91XA UNSP INJURY OF RIGHT WRIST, HAND AND FIN 02/24/2018 ALON BROWN EXHIBIT BUILDER Ot W19.XXXA UNSPECIFIED FALL, INITIAL ENCOUNTER 03/05/2018 ALON BROWN EXHIBIT BUILDER Ot M79.641 PAIN IN RIGHT HAND 03/05/2018 ALON BROWN EXHIBIT BUILDER Ot S69.91XA UNSP INJURY OF RIGHT WRIST, HAND AND FIN 03/05/2018 ALON BROWN EXHIBIT BUILDER Ot W19.XXXA UNSPECIFIED FALL, INITIAL ENCOUNTER Procedures There is no data. Results There is no data. Encounters ACCT No. Visit Date/Time Discharge Status Pt. Type Provider Facility Loc./Unit Complaint [id number] 02/21/2018 15:31:00 02/21/2018 23:59:59 CLS Outpatient ALON BROWN APRN [facility] RAD RIGHT HAND XRAY [id number] 10/17/2017 13:57:00 10/17/2017 23:59:59 CLS Outpatient QUIROGA DO, ARIEL [facility] RAD PNEUMONIA [id number] 08/26/2017 16:42:00 08/26/2017 23:59:59 CLS Outpatient QUIROGA DO, ARIEL [facility] RT UNSPECIFIED ASTHMA [id number] 07/22/2017 11:36:00 07/22/2017 23:59:59 CLS Preadmit QUIROGA DO, ARIEL [facility] RT UNSPECIFIED ASTHMA, UNCOMPLICATED [id number] 04/22/2017 16:05:00 04/22/2017 23:59:59 CLS Preadmit QUIROGA DO, ARIEL [facility] RAD SCREENING [id number] 01/18/2017 12:53:00 01/18/2017 23:59:59 CLS Outpatient QUIROGA DO, ARIEL [facility] SDC MIGRAIN,N/V DEYDRATION [id number] 01/18/2017 11:19:00 01/18/2017 12:40:00 DIS Emergency ZULEMA DO YONI K [facility] ER MIGRAINE [id number] 04/08/2015 07:27:00 04/08/2015 23:59:59 CLS Outpatient QUIROGA DO, ARIEL [facility] RAD SCREENING [id number] 10/11/2014 07:30:00 10/11/2014 23:59:59 CLS Preadmit QUIROGA DO, ARIEL [facility] RAD SCREENING [id number] 09/02/2014 14:27:00 09/02/2014 23:59:59 CLS Outpatient QUIROGA DO, ARIEL [facility] RAD HEADACHE [id number] 08/26/2014 15:05:00 08/27/2014 12:15:00 DIS Inpatient QUIROGA DO, ARIEL [facility] 4TH MIGRAINES [id number] 03/26/2013 14:11:00 03/26/2013 23:59:59 CLS Outpatient QUIROGA DO, ARIEL [facility] RAD ABNORMAL MAMMO [id number] 10/02/2012 07:22:00 10/02/2012 23:59:59 CLS Outpatient QUIROGA DO, ARIEL [facility] RAD [id number] 03/24/2018 20:51:00 ACT Emergency LIZBETH YANCEY, MARSHA Veliz [facility] ER DIZZINESS [id number] 08/27/2014 10:10:00 Document Registration [id number] 09/16/2012 07:17:00 Document Registration [id number] 09/18/2011 10:28:00 Document Registration [id number] 09/02/2014 14:27:42 ACT Document Registration
[2018-03-24 21:13] VITALS: BP 135/106
[2018-03-24] MEDS ORDERED: NS 250 ML (IVPB) BAG IV ONE (21:30)
[2018-03-24] MEDS ORDERED: IOHEXOL 350 MG/ML 100 ML (OMNIPAQUE 350) VIAL IV ONE (21:30)
[2018-03-24 21:36] LABS: BASOPHILS # (AUTO) 0.1 10^3/uL (0.0-0.1); BASOPHILS % (AUTO) 1 % (0-10); EOSINOPHILS # (AUTO) 0.4 10^3/uL (0.0-0.3); EOSINOPHILS % (AUTO) 7 % (0-10); HEMATOCRIT 41 % (35-52); HEMOGLOBIN 13.8 G/DL (11.5-16.0); LYMPHOCYTES # (AUTO) 1.6 X 10^3 (1.0-4.0); LYMPHOCYTES % (AUTO) 30 % (12-44); MEAN CORPUSCULAR HEMOGLOBIN 30 PG (25-34); MEAN CORPUSCULAR HGB CONC 34 G/DL (32-36); MEAN CORPUSCULAR VOLUME 89 FL (80-99); MEAN PLATELET VOLUME 10.3 FL (7.4-10.4); MONOCYTES # (AUTO) 0.6 X 10^3 (0.0-1.0); MONOCYTES % (AUTO) 10 % (0-12); NEUTROPHILS # (AUTO) 2.8 X 10^3 (1.8-7.8); NEUTROPHILS % (AUTO) 51 % (42-75); PLATELET COUNT 238 10^3/uL (130-400); RED BLOOD COUNT 4.59 10^6/uL (4.35-5.85); RED CELL DISTRIBUTION WIDTH 12.4 % (10.0-14.5); WHITE BLOOD COUNT 5.4 10^3/uL (4.3-11.0)
[2018-03-24 21:50] LABS: FIBRIN DEGRADATION PRODUCTS <= 0.27 UG/ML (0.00-0.49); PARTIAL THROMBOPLASTIN TIME 28 SEC (24-35); PROTHROMBIN TIME PATIENT 13.1 SEC (12.2-14.7)
[2018-03-24 21:53] LABS: ALANINE AMINOTRANSFERASE 12 U/L (0-55); ALBUMIN 4.6 GM/DL (3.2-4.5); ALKALINE PHOSPHATASE 58 U/L (40-136); BILIRUBIN,TOTAL 0.6 MG/DL (0.1-1.0); BUN/CREATININE RATIO 16; CALCIUM 9.7 MG/DL (8.5-10.1); CARBON DIOXIDE 22 MMOL/L (21-32); CHLORIDE 105 MMOL/L (98-107); CREATININE SERUM 0.83 MG/DL (0.60-1.30); GFR ESTIMATED > 60; GLUCOSE 103 MG/DL (70-105); POTASSIUM 3.5 MMOL/L (3.6-5.0); SODIUM 140 MMOL/L (135-145); TOTAL PROTEIN 7.4 GM/DL (6.4-8.2)
--- NOTE | 2018-03-24 22:26 | Diagnostic Imaging Report ---
PROCEDURE: CT angiography of the head and CT angiography of the neck with and without contrast. TECHNIQUE: Contiguous noncontrast images were obtained from the skull base through the vertex. After intravenous contrast administration, helical CT angiography of the neck was performed. Source data was reformatted into multiple 2D MIP projections. Delayed post contrast acquisition was also obtained. INDICATION: Stroke activation, dizziness, listing to the right. COMPARISON: None FINDINGS: Noncontrast CT head: Some asymmetry with the left lateral ventricle smaller than the right likely of no significance. The ventricles and sulci are otherwise unremarkable. No abnormal areas of decreased attenuation to suggest edema. No midline shift or mass effect. No intracranial hemorrhage. CTA overall is compromised at the contrast bolus timing. CTA NECK: Aorta: Aortic arch is limited in evaluation with artifact present. Does appear relatively normal, with standard three vessel branching pattern. Common carotid artery: The origin of the bilateral common carotid arteries are patent. No stenosis of the common carotid arteries in the neck. Internal carotid arteries: No significant stenosis of the internal carotid arteries. The cervical segments of the bilateral ICAs are patent. External carotid arteries: The proximal external carotid arteries are patent and without significant stenosis. Vertebral arteries: Origins of the bilateral vertebral arteries are limited in visualization. Vertebral arteries are co-dominant. The vertebral arteries are patent and without suggestion of dissection or stenosis. Non-vascular: No concerning cervical lymphadenopathy. The airway is patent. Thyroid and salivary glands appearing normal. No concerning lesion in the cervical spine. CTA HEAD: Anterior Circulation: The terminal ICAs are not well contrast-filled and therefore evaluated but appear generally unremarkable. The bilateral middle cerebral arteries are patent and without stenosis. The anterior cerebral arteries are patent and without stenosis. Posterior Circulation: Posterior fossa not well assessed. The bilateral intracranial segments of the vertebral arteries are patent. The basilar artery is patent and without stenosis. The right posterior inferior cerebellar artery cannot be identified. What appears to be left-sided is wispy in appearance. The posterior cerebral arteries are patent. Post Contrast Head: No concerning enhancement on delayed post-contrast imaging. Dural venous sinuses appearing patent. IMPRESSION: 1. The posterior fossa circulation is not well assessed. The right posterior inferior cerebellar artery cannot be identified. Remainder of the [place] of [place] otherwise generally unremarkable. 2. Negative CTA of the neck. Findings have been telephoned to the emergency department, 10:05 PM Dictated by: Dictated on workstation # [id number]
[2018-03-24] MEDS ORDERED: MECLIZINE 25 MG (ANTIVERT) TAB PO ONE (22:30)
[2018-03-24 22:45] LABS: BILIRUBIN,URINE NEGATIVE (NEGATIVE); CLARITY,URINE CLEAR; COLOR,URINE YELLOW; GLUCOSE, URINE (UA) NEGATIVE (NEGATIVE); KETONES,URINE NEGATIVE (NEGATIVE); LEUKOCYTE ESTERASE ,URINE 1+ (NEGATIVE); NITRITE,URINE NEGATIVE (NEGATIVE); PH,URINE 7 (5-9); PROTEIN,URINE NEGATIVE (NEGATIVE); UROBILINOGEN,URINE NORMAL (NORMAL)
[2018-03-24 22:52] LABS: BACTERIA,URINE FEW /HPF
--- NOTE | 2018-03-24 23:04 | ED Neurological Problem ---
General Chief Complaint: Dizziness/Syncope Stated Complaint: DIZZINESS Nursing Triage Note: pt states that she felt slightly dizzy at dinner, tonight after she stood up while drying her hair after the shower the room started to spin. Denies striking her head, but states she fell against the bathroom door. denies nausea. states she still feels off. Occurrence was roughly at 20:30 per pt. Nursing Sepsis Screen: No Definite Risk Source: patient Exam Limitations: no limitations History of Present Illness Date Seen by Provider: Mar 24, 2018 Time Seen by Provider: 09:05 Initial Comments This 42-year-old woman presents to the emergency room with complaints of sudden onset of disequilibrium. Symptoms started while she was sitting at the table eating dinner. She denies any chest pain or palpitations. The sensation is not vertigo as she has no spinning sensation. She does want to tilt to the right and actually bumped into a wall while walking. She required assistance to walk into the emergency room. Last known well time was at 20:30. She was not feeling well prior to that but did not experience disequilibrium until 20: 30. She initially thought she was having some allergy problems and took Lynn. She has never experienced a sensation quite like this before. Patient takes oral control due to problems with hormonally triggered migraines. She has never had any symptoms of disequilibrium with a migraine. She also takes triamterene for chronic fluid retention. She also takes Botox injections for migraine prophylaxis. She denies any tobacco use. She occasionally drinks wine but has not had any alcohol today. Her primary care provider is Dr. Quiroga. She has no focal deficits on initial assessment. Stroke activation was paged during initial assessment. Fingerstick blood sugar was 94. Allergies and Home Medications Allergies Coded Allergies: No Known Drug Allergies (Unverified , 03/24/18) Home Medications Cetirizine Hcl 10 Mg Tablet, 10 MG PO DAILY PRN for ALLERGIES, (Reported) Diclofenac Potassium 50 Mg Tablet, 50 MG PO BID PRN for MIGRAINE, (Reported) Guaifenesin/P-Ephed Hcl 1 Each Tab.sr.12h, 1 TAB PO BID PRN for CONGESTION, ( Reported) Ibuprofen 200 Mg Tablet, 800 MG PO TID PRN for PAIN, (Reported) TAKES 4 (200MG) TABLETS Meperidine Hcl 50 Mg Tablet, 50 MG PO Q6H Prescribed by: ARIEL QUIROGA on 08/27/14 1116 Norelgestromin/Ethin.estradiol 1 Each Patch.tdwk, 1 PATCH TD UD, (Reported) WEAR FOR 3 WEEKS THEN OFF FOR 1 WEEK Ondansetron 8 Mg Tab.rapdis, 8 MG PO Q6H PRN for NAUSEA, (Reported) Triamterene/Hydrochlorothiazid 1 Udtab Tablet, 1 TAB PO DAILY PRN for DURING MONTHLY CYCLE, (Reported) Patient Home Medication List Home Medication List Reviewed: Yes Review of Systems Review of Systems Constitutional: no symptoms reported Eyes: No Symptoms Reported Ears, Nose, Mouth, Throat: no symptoms reported Respiratory: no symptoms reported Cardiovascular: no symptoms reported Gastrointestinal: no symptoms reported Genitourinary: no symptoms reported : No Musculoskeletal: no symptoms reported Skin: no symptoms reported Psychiatric/Neurological: See HPI Endocrine: No Symptoms Reported Hematologic/Lymphatic: No Symptoms Reported Past Wfrvwmn-Qvkteb-Fwhjca Hx Past Med/Social Hx: Reviewed Nursing Past Med/Soc Hx Patient Social History Alcohol Use: Occasionally Uses Alcohol Beverage of Choice: Wine Recreational Drug Use: No Smoking Status: Never a Smoker Recent Foreign Travel: No Contact w/Someone Who Travel: No Recent Infectious Disease Expo: No Recent Hopitalizations: No Immunizations Up To Date Date of Influenza Vaccine: Mar 03, 2014 Past Medical History Surgeries: Yes Adenoidectomy, Tonsillectomy Respiratory: Yes (PNEUMONIA A CHILD) Asthma, Pneumonia Cardiac: Yes Chronic Edema/Swelling Neurological: Yes Headaches /Migraines : No (uses control) Reproductive Disorders: No Genitourinary: No Gastrointestinal: No Musculoskeletal: No Endocrine: No HEENT: No Cancer: No Psychosocial: No Integumentary: No Blood Disorders: No Family Medical History Reviewed Nursing Family Hx Colonic polyps 19 FATHER DVT 19 FATHER FH: CABG (coronary artery bypass surgery) Hypercholesterolemia 19 MOTHER Hypertension 19 MOTHER MATERNAL GRANDMOTHER Pituitary disease 19 FATHER Physical Exam Vital Signs Vital Signs - First Documented 03/24/18 20:56 Temp 98.3 Pulse 77 Resp 20 B/P (MAP) 129/82 (98) Pulse Ox 99 O2 Delivery Room Air Capillary Refill : Less Than 3 Seconds Height, Weight, BMI Height: 5'5.00" Weight: 140lbs. 8.0oz. 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 Hollister-Hallpike to the left also caused a vertigo type sensation.) Skin: normal color, warm/dry Stroke NIH Stroke Scale Assessment Level of Consciousness: 0=Alert (0), Level of Consciousness-Questions: 0= Answers both month/age (0), LOC Commands: 0=Performs both tasks (0), Visual Quintana: 0=No visual loss (0), Facial Movement (Facial Paresis): 0=Normal symmetrical mnt (0), Motor Function-Arms Right: 0=No drift (0), Motor Function- Arms Left: 0=No drift (0), Motor Function-Legs Right: 0=No drift (0), Motor Function-Legs Left: 0=No drift (0), Limb Ataxia: 0=Absent (0), Sensory: 0=Normal :no loss (0), Best Language: 0=No aphasia (0), Dysarthria: 0=Normal (0), Extinction & Inattention: 0=No abnormality (0), Total: 0 Progress/Results/Core Measures Results/Orders Lab Results Laboratory Tests Test 03/24/18 21:16 03/24/18 21:24 03/24/18 22:35 Range/Units Glucometer 94 70-110 MG/DL White Blood Count 5.4 4.3-11.0 10^3/uL Red Blood Count 4.59 4.35-5.85 10^6/uL Hemoglobin 13.8 11.5-16.0 G/DL Hematocrit 41 35-52 % Mean Corpuscular Volume 89 80-99 FL Mean Corpuscular Hemoglobin 30 25-34 PG Mean Corpuscular Hemoglobin Concent 34 32-36 G/DL Red Cell Distribution Width 12.4 10.0-14.5 % Platelet Count 238 130-400 10^3/uL Mean Platelet Volume 10.3 7.4-10.4 FL Neutrophils (%) (Auto) 51 42-75 % Lymphocytes (%) (Auto) 30 12-44 % Monocytes (%) (Auto) 10 0-12 % Eosinophils (%) (Auto) 7 0-10 % Basophils (%) (Auto) 1 0-10 % Neutrophils # (Auto) 2.8 1.8-7.8 X 10^3 Lymphocytes # (Auto) 1.6 1.0-4.0 X 10^3 Monocytes # (Auto) 0.6 0.0-1.0 X 10^3 Eosinophils # (Auto) 0.4 H 0.0-0.3 10^3/uL Basophils # (Auto) 0.1 0.0-0.1 10^3/uL Prothrombin Time 13.1 12.2-14.7 SEC INR Comment 1.0 0.8-1.4 Activated Partial Thromboplast Time 28 24-35 SEC D-Dimer <= 0.27 0.00-0.49 UG/ML Sodium Level 140 135-145 MMOL/L Potassium Level 3.5 L 3.6-5.0 MMOL/L Chloride Level 105 98-107 MMOL/L Carbon Dioxide Level 22 21-32 MMOL/L Anion Gap 13 5-14 MMOL/L Blood Urea Nitrogen 13 7-18 MG/DL Creatinine 0.83 0.60-1.30 MG/DL Estimat Glomerular Filtration Rate > 60 BUN/Creatinine Ratio 16 Glucose Level 103 70-105 MG/DL Calcium Level 9.7 8.5-10.1 MG/DL Corrected Calcium 8.5-10.1 MG/DL Total Bilirubin 0.6 0.1-1.0 MG/DL Aspartate Amino Transf (AST/SGOT) 15 5-34 U/L Alanine Aminotransferase (ALT/SGPT) 12 0-55 U/L Alkaline Phosphatase 58 40-136 U/L Troponin I < 0.30 <0.30 NG/ML Total Protein 7.4 6.4-8.2 GM/DL Albumin 4.6 H 3.2-4.5 GM/DL Serum Test, Qualitative NEGATIVE NEGATIVE Urine Color YELLOW Urine Clarity CLEAR Urine pH 7 5-9 Urine Specific [place] 1.010 L 1.016-1.022 Urine Protein NEGATIVE NEGATIVE Urine Glucose (UA) NEGATIVE NEGATIVE Urine Ketones NEGATIVE NEGATIVE Urine Nitrite NEGATIVE NEGATIVE Urine Bilirubin NEGATIVE NEGATIVE Urine Urobilinogen NORMAL NORMAL MG/DL Urine Leukocyte Esterase 1+ H NEGATIVE Urine RBC (Auto) NEGATIVE NEGATIVE Urine RBC NONE /HPF Urine WBC 5-10 H /HPF Urine Squamous Epithelial Cells 10-25 H /HPF Urine Crystals NONE /LPF Urine Bacteria FEW H /HPF Urine Casts NONE /LPF Urine Mucus NEGATIVE /LPF Urine Culture Indicated YES My Orders Orders - MARSHA NIEVES MD Ct Angio Head/Neck (03/24/18 21:20) Cbc With Automated Diff (03/24/18:20) Protime With Inr (03/24/18:20) Partial Thromboplastin Time (03/24/18:20) Comprehensive Metabolic Panel (03/24/18 21:20) Fibrin Degradation Products (03/24/18 21:20) Troponin I (03/24/18 21:20) Ua Culture If Indicated (03/24/18:20) Chest 1 View, Ap/Pa Only (03/24/18 21:20) Ekg Tracing (03/24/18 21:20) Accucheck Stat ONCE (03/24/18 21:20) Saline Lock/Iv-Start (03/24/18 21:20) Saline Lock/Iv-Start (03/24/18 21:20) Vital Signs Stroke Patient Q15M (03/24/18 21:20) O2 (03/24/18 21:20) Intake & Output 06,14,22 (03/24/18 21:20) Monitor-Rhythm Ecg Trace Only (03/24/18 21:20) Dysphagia Screening Tool (03/24/18 21:20) Post Thrombolytic Adminstratio (03/24/18 21:20) Lipid Panel (03/25/18 06:00) Iohexol Injection (Omnipaque 350 Mg/Ml 1 (03/24/18 21:30) Ns (Ivpb) (Sodium Chloride 0.9%) (03/24/18 21:30) Meclizine Tablet (Antivert Tablet) (03/24/18 22:30) Hcg,Qualitative Serum (03/24/18 22:21) Urine Culture (03/24/18 22:35) Medications Given in ED Current Medications Medications Dose Ordered Sig/Josi Route Start Time Stop Time Status Last Admin Dose Admin Iohexol 75 ml ONCE ONCE IV 03/24/18 21:30 03/24/18 21:31 DC 03/24/18 21:33 75 ML Meclizine HCl 25 mg ONCE ONCE PO 03/24/18 22:30 03/24/18 22:31 DC 03/24/18 22:26 25 MG Sodium Chloride 250 ml ONCE ONCE IV 03/24/18 21:30 03/24/18 21:31 DC 03/24/18 21:33 80 ML Vital Signs/I&O 03/24/18 03/24/18 03/24/18 20:56 20:58 21:13 Temp 98.3 Pulse 77 73 Resp 20 18 B/P (MAP) 129/82 (98) 135/106 Pulse Ox 99 98 99 O2 Delivery Room Air Room Air 03/25/18 00:00 Intake Total 0 ml Output Total 0 ml Balance 0 ml Blood Pressure Mean: 98 FSBG Bedside Testing Finger Stick Blood Glucose: 94 Progress Progress Note : Progress Note Stroke activation was paged as patient's symptoms did not quite fit the picture of vertigo or labyrinthitis. She had no nystagmus on Hollister-Hallpike or with any movement of the head. She did have development of a vertigo type dizziness with Hollister-Hallpike to the left. Jonh-Hallpike on each side was converted into Mely maneuver. Neither Mely maneuver resolved her symptoms. CT angiogram of the head and neck was performed. Results were discussed with the radiologist. The quality of the exam limited its utility. The radiologist was concerned that there was no visible right PICA. Dr. De La O, stroke neurologist at [facility] was contacted at 22:25. He doubted the patient's symptoms were related to stroke but stated a small cerebellar infarct was possible. He advised offering patient TPA but he did not feel that TPA was strongly advisable. He did recommend treating with aspirin if TPA was not given. He states the strokes causing these types of symptoms tend to recover fairly well even without TPA administration. I discussed risks and benefits of TPA administration with the patient and her . They elect to forego the TPA. Dr. De La O's recommendation patient was admitted for observation with an MRI ordered for the morning. She did receive meclizine in the ER and she felt this didn't improve her dizziness/disequilibrium. Initial ECG Impression Date: Mar 24, 2018 Initial ECG Impression Time: 21:44 Initial ECG Rate: 80 Initial ECG Rhythm: Normal Sinus Initial ECG Impression: Normal Comment Normal sinus rhythm with no ST elevation or depression. No abnormal intervals or axis deviation. Diagnostic Imaging Diagonstic Imaging: CT Plain Films/CT/US/NM/MRI: other (CT angiogram head and neck) Comments CT angiogram head and neck viewed by me and report reviewed. See report below: NAME: [facility] REC#: [id number] PT STATUS: REG ER : 1975 PHYSICIAN: MARSHA NIEVES MD ADMIT DATE: 03/24/18/ER Draft Date of Exam:03/24/18 CT ANGIO HEAD/NECK PROCEDURE: CT angiography of the head and CT angiography of the neck with and without contrast. TECHNIQUE: Contiguous noncontrast images were obtained from the skull base through the vertex. After intravenous contrast administration, helical CT angiography of the neck was performed. Source data was reformatted into multiple 2D MIP projections. Delayed post contrast acquisition was also obtained. INDICATION: Stroke activation, dizziness, listing to the right. COMPARISON: None FINDINGS: Noncontrast CT head: Some asymmetry with the left lateral ventricle smaller than the right likely of no significance. The ventricles and sulci are otherwise unremarkable. No abnormal areas of decreased attenuation to suggest edema. No midline shift or mass effect. No intracranial hemorrhage. CTA overall is compromised at the contrast bolus timing. CTA NECK: Aorta: Aortic arch is limited in evaluation with artifact present. Does appear relatively normal, with standard three vessel branching pattern. Common carotid artery: The origin of the bilateral common carotid arteries are patent. No stenosis of the common carotid arteries in the neck. Internal carotid arteries: No significant stenosis of the internal carotid arteries. The cervical segments of the bilateral ICAs are patent. External carotid arteries: The proximal external carotid arteries are patent and without significant stenosis. Vertebral arteries: Origins of the bilateral vertebral arteries are limited in visualization. Vertebral arteries are co-dominant. The vertebral arteries are patent and without suggestion of dissection or stenosis. Non-vascular: No concerning cervical lymphadenopathy. The airway is patent. Thyroid and salivary glands appearing normal. No concerning lesion in the cervical spine. CTA HEAD: Anterior Circulation: The terminal ICAs are not well contrast-filled and therefore evaluated but appear generally unremarkable. The bilateral middle cerebral arteries are patent and without stenosis. The anterior cerebral arteries are patent and without stenosis. Posterior Circulation: Posterior fossa not well assessed. The bilateral intracranial segments of the vertebral arteries are patent. The basilar artery is patent and without stenosis. The right posterior inferior cerebellar artery cannot be identified. What appears to be left-sided is wispy in appearance. The posterior cerebral arteries are patent. Post Contrast Head: No concerning enhancement on delayed post-contrast imaging. Dural venous sinuses appearing patent. IMPRESSION: 1. The posterior fossa circulation is not well assessed. The right posterior inferior cerebellar artery cannot be identified. Remainder of the [place] otherwise generally unremarkable. 2. Negative CTA of the neck. Findings have been telephoned to the emergency department, 10:05 PM Dictated on workstation # [id number] Dict: 03/24/182200 Trans: 03/24/18 2225 [facility] [id number] Interpreted by: WANDER ALONSOgonsbryan Imaging: Xray Plain Films/CT/US/NM/MRI: chest Comments Chest x-ray viewed by me and report not yet available. No acute abnormalities appreciated. Departure Communication (Admissions) Time/Spoke to Admitting Phy: 23:00 Dr. Flores Impression Primary Impression: Disequilibrium Additional Impression: Dizziness Disposition: ADMITTED INPATIENT Condition: Improved Admissions Decision to Admit Reason: Admit from ER (General) Decision to Admit/Date: Mar 24, 2018 Time/Decision to Admit Time: 23:00 Departure-Patient Inst. Referrals: ARIEL QUIROGA DO (PCP/Family) Primary Care Physician Copy Copies To 1: ARIEL QUIROGA JOSHUA T MD Mar 24, 2018 23:04
--- OUTSIDE RECORDS SUMMARY | 2018-03-24 23:17 | XMS REPORT | Clinical Summary ---
Author Author [facility] Organization [facility] Address Unknown Phone Unavailable Care Team Providers Care Document Examiner Name Role Phone PCP Unavailable Allergies Not [...]
--- OUTSIDE RECORDS SUMMARY | 2018-03-24 23:20 | XMS REPORT | Continuity of Care Document ---
Author Author [facility] Organization [facility] Address Unknown Phone Unavailable Allergies Active Description Code Type Severity Reaction Onset Reported/Identified Relationship to Patient Clinical Status Yes No Known Drug Allergies [id number] Drug Allergy Unknown N/A 08/26/2014 Medications There [...] UNSP, NOT INTRACTABLE, WITHOUT 01/23/2017 KIMBER TREVIZO ARIEL Ot R11.2 NAUSEA WITH VOMITING, UNSPECIFIED 02/05/2017 KIMBER TREVIZO ARIEL Ot E86.0 DEHYDRATION 02/05/2017 QUIROGA ARIEL TREVIZO Ot G43.909 MIGRAINE, UNSP, NOT INTRACTABLE, WITHOUT 02/05/2017 QUIROGADERIC HEAD DOI Ot R11.2 NAUSEA WITH VOMITING, UNSPECIFIED 08/27/2017 QUIROGADERIC HEAD DOI Ot J45.909 UNSPECIFIED ASTHMA, UNCOMPLICATED 09/01/2017 KIMBER DO ARIEL Ot J45.909 UNSPECIFIED ASTHMA, UNCOMPLICATED 09/16/2017 QUIROGA DERIC TREVIZOI Ot J45.909 UNSPECIFIED ASTHMA, UNCOMPLICATED 10/18/2017 QUIROGA DO ARIEL Ot J18.9 PNEUMONIA, UNSPECIFIED ORGANISM 10/18/2017 QUIROGA DO ARIEL Ot 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 10/30/2017 QUIROGASONIDO TREVIZO ARIEL Ot J18.9 PNEUMONIA, UNSPECIFIED ORGANISM 10/30/2017 QUIROGA DO ARIEL Ot 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 01/28/2018 DERIC QUIROGA DOI Ot 611.72 LUMP OR MASS IN BREAST 01/28/2018 DERIC QUIROGA DOI Ot 793.80 UNSPEC ABNORMAL MAMMOGRAM 02/24/2018 ALON BROWN PLUNGER SCOOP OPERATOR Ot M79.641 PAIN IN RIGHT HAND 02/24/2018 ALON BROWN PLUNGER SCOOP OPERATOR Ot S69.91XA UNSP INJURY OF RIGHT WRIST, HAND AND FIN 02/24/2018 STEPHANIE ALON L PLUNGER SCOOP OPERATOR Ot W19.XXXA UNSPECIFIED FALL, INITIAL ENCOUNTER 03/05/2018 ALON BROWN PLUNGER SCOOP OPERATOR Ot M79.641 PAIN IN RIGHT HAND 03/05/2018 ALON BROWN PLUNGER SCOOP OPERATOR Ot S69.91XA UNSP INJURY OF RIGHT WRIST, HAND AND FIN 03/05/2018 ALON BROWN PLUNGER SCOOP OPERATOR Ot W19.XXXA UNSPECIFIED FALL, INITIAL ENCOUNTER Procedures There is no data. Results Test Result Range Capillary blood glucose measurement by glucometer (mass/volume) - 03/24/18 21: 16 Capillary blood glucose measurement by glucometer (mass/volume) 94 mg/dL 70-110 Complete blood count (CBC) with automated white blood cell (WBC) differential - 03/24/18 21:24 Blood leukocytes automated count (number/volume) 5.4 10*3/uL 4.3-11.0 Blood erythrocytes automated count (number/volume) 4.59 10*6/uL 4.35-5.85 Venous blood hemoglobin measurement (mass/volume) 13.8 g/dL 11.5-16.0 Blood hematocrit (volume fraction) 41 % 35-52 Automated erythrocyte mean corpuscular volume 89 [foz_us] 80-99 Automated erythrocyte mean corpuscular hemoglobin (mass per erythrocyte) 30 pg 25-34 Automated erythrocyte mean corpuscular hemoglobin concentration measurement ( mass/volume) 34 g/dL 32-36 Automated erythrocyte distribution width ratio 12.4 % 10.0-14.5 Automated blood platelet count (count/volume) 238 10*3/uL 130-400 Automated blood platelet mean volume measurement 10.3 [foz_us] 7.4-10.4 Automated blood neutrophils/100 leukocytes 51 % 42-75 Automated blood lymphocytes/100 leukocytes 30 % 12-44 Blood monocytes/100 leukocytes 10 % 0-12 Automated blood eosinophils/100 leukocytes 7 % 0-10 Automated blood basophils/100 leukocytes 1 % 0-10 Blood neutrophils automated count (number/volume) 2.8 10*3 1.8-7.8 Blood lymphocytes automated count (number/volume) 1.6 10*3 1.0-4.0 Blood monocytes automated count (number/volume) 0.6 10*3 0.0-1.0 Automated eosinophil count 0.4 10*3/uL 0.0-0.3 Automated blood basophil count (count/volume) 0.1 10*3/uL 0.0-0.1 Comprehensive metabolic panel - 03/24/18 21:24 Serum or plasma sodium measurement (moles/volume) 140 mmol/L 135-145 Serum or plasma potassium measurement (moles/volume) 3.5 mmol/L 3.6-5.0 Serum or plasma chloride measurement (moles/volume) 105 mmol/L 98-107 Carbon dioxide 22 mmol/L 21-32 Serum or plasma anion gap determination (moles/volume) 13 mmol/L 5-14 Serum or plasma urea nitrogen measurement (mass/volume) 13 mg/dL 7-18 Serum or plasma creatinine measurement (mass/volume) 0.83 mg/dL 0.60-1.30 Serum or plasma urea nitrogen/creatinine mass ratio 16 NRG Serum or plasma creatinine measurement with calculation of estimated glomerular filtration rate > NRG Serum or plasma glucose measurement (mass/volume) 103 mg/dL 70-105 Serum or plasma calcium measurement (mass/volume) 9.7 mg/dL 8.5-10.1 Serum or plasma total bilirubin measurement (mass/volume) 0.6 mg/dL 0.1-1.0 Serum or plasma alkaline phosphatase measurement (enzymatic activity/volume) 58 U/L 40-136 Serum or plasma aspartate aminotransferase measurement (enzymatic activity/ volume) 15 U/L 5-34 Serum or plasma alanine aminotransferase measurement (enzymatic activity/volume ) 12 U/L 0-55 Serum or plasma protein measurement (mass/volume) 7.4 g/dL 6.4-8.2 Serum or plasma albumin measurement (mass/volume) 4.6 g/dL 3.2-4.5 PT panel in platelet poor plasma by coagulation assay - 03/24/18 21:24 Prothrombin time (PT) in platelet poor plasma by coagulation assay 13.1 s 12.2-14.7 INR in platelet poor plasma or blood by coagulation assay 1.0 0.8-1.4 Activated partial thromboplastin time (aPTT) in platelet poor plasma bycoagulation assay - 03/24/18 21:24 Activated partial thromboplastin time (aPTT) in platelet poor plasma bycoagulation assay 28 s 24-35 Fibrin D-dimer FEU measurement in platelet poor plasma (mass/volume) - 21:24 Fibrin D-dimer FEU measurement in platelet poor plasma (mass/volume) <=ug/mL 0.00-0.49 Serum or plasma troponin i.cardiac measurement (mass/volume) - 03/24/18 21:24 Serum or plasma troponin i.cardiac measurement (mass/volume) < ng/ mL <0.30 Serum or plasma choriogonadotropin ( test) detection - 03/24/18 21:24 Serum or plasma choriogonadotropin ( test) detection NEGATIVE NEGATIVE Complete urinalysis with reflex to culture - 03/24/18 22:35 Urine color determination YELLOW NRG Urine clarity determination CLEAR NRG Urine pH measurement by test strip 7 5-9 Specific gravity of urine by test strip 1.010 1.016- 1.022 Urine protein assay by test strip, semi-quantitative NEGATIVE NEGATIVE Urine glucose detection by automated test strip NEGATIVE NEGATIVE Erythrocytes detection in urine sediment by light microscopy NEGATIVE NEGATIVE Urine ketones detection by automated test strip NEGATIVE NEGATIVE Urine nitrite detection by test strip NEGATIVE NEGATIVE Urine total bilirubin detection by test strip NEGATIVE NEGATIVE Urine urobilinogen measurement by automated test strip (mass/volume) NORMAL NORMAL Urine leukocyte esterase detection by dipstick 1+ NEGATIVE Automated urine sediment erythrocyte count by microscopy (number/high power field) NONE NRG Automated urine sediment leukocyte count by microscopy (number/high power field ) [HPF] NRG Bacteria detection in urine sediment by light microscopy FEW NRG Squamous epithelial cells detection in urine sediment by light microscopy 10-25 NRG Crystals detection in urine sediment by light microscopy NONE NRG Casts detection in urine sediment by light microscopy NONE NRG Mucus detection in urine sediment by light microscopy NEGATIVE NRG Complete urinalysis with reflex to culture YES NRG Encounters ACCT No. Visit Date/Time Discharge Status Pt. Type Provider Facility Loc./Unit Complaint [id number] 02/21/2018 15:31:00 02/21/2018 23:59:59 CLS Outpatient ALON BROWN PLUNGER SCOOP OPERATOR [facility] RAD RIGHT HAND XRAY [id number] 10/17/2017 13:57:00 10/17/2017 23:59:59 CLS Outpatient QUIROGA DO, ARIEL [facility] RAD PNEUMONIA [id number] 08/26/2017 16:42:00 08/26/2017 23:59:59 CLS Outpatient QUIROGA DO, ARIEL [facility] RT UNSPECIFIED ASTHMA [id number] 07/22/2017 11:36:00 07/22/2017 23:59:59 CLS Preadmit QUIROGA DO, ARIEL [facility] RT UNSPECIFIED ASTHMA, UNCOMPLICATED [id number] 04/22/2017 16:05:00 04/22/2017 23:59:59 CLS Preadmit QUIROGA DO, ARIEL [facility] RAD SCREENING [id number] 01/18/2017 12:53:00 01/18/2017 23:59:59 CLS Outpatient QUIROGA DO, ARIEL [facility] SDC MIGRAIN,N/V DEYDRATION [id number] 01/18/2017 11:19:00 01/18/2017 12:40:00 DIS Emergency ZULEMA YONI TREVIZO [facility] ER MIGRAINE [id number] 04/08/2015 07:27:00 04/08/2015 23:59:59 CLS Outpatient QUIROGA DO, ARIEL [facility] RAD SCREENING [id number] 10/11/2014 07:30:00 10/11/2014 23:59:59 CLS Preadmit QUIROGA DO, ARIEL [facility] RAD SCREENING [id number] 09/02/2014 14:27:00 09/02/2014 23:59:59 CLS Outpatient QUIROGA DO, ARIEL [facility] RAD HEADACHE [id number] 08/26/2014 15:05:00 08/27/2014 12:15:00 DIS Inpatient QUIROGA DO, ARIEL [facility] 4TH MIGRAINES [id number] 03/26/2013 14:11:00 03/26/2013 23:59:59 CLS Outpatient QUIROGA DO, ARIEL [facility] RAD ABNORMAL MAMMO [id number] 10/02/2012 07:22:00 10/02/2012 23:59:59 CLS Outpatient QUIROGA DO, ARIEL [facility] RAD [id number] 03/24/2018 23:11:00 ACT Inpatient NOE YANCEY, LUIS Olivares [facility] ICU DISEQUILIBRIUM [id number] 08/27/2014 10:10:00 Document Registration [id number] 09/16/2012 07:17:00 Document Registration [id number] 09/18/2011 10:28:00 Document Registration [id number] 09/02/2014 14:27:42 ACT Document Registration
[2018-03-24] MEDS ORDERED: ASPIRIN 325 MG (5 GR) TABLET PO ONE (23:30)
[2018-03-25] VITALS (12 sets, daily range): BP systolic 94–114; BP diastolic 66–78
[2018-03-25] MEDS ORDERED: MECLIZINE 25 MG (ANTIVERT) TAB PO PRN (00:15)
[2018-03-25] MEDS ORDERED: ONDANSETRON 4 MG/2 ML (SDV) Z0FRAN IV PRN (00:15)
[2018-03-25 03:54] LABS: BASOPHILS # (AUTO) 0.1 10^3/uL (0.0-0.1); BASOPHILS % (AUTO) 1 % (0-10); EOSINOPHILS # (AUTO) 0.4 10^3/uL (0.0-0.3); EOSINOPHILS % (AUTO) 8 % (0-10); HEMATOCRIT 43 % (35-52); HEMOGLOBIN 14.3 G/DL (11.5-16.0); LYMPHOCYTES # (AUTO) 1.5 X 10^3 (1.0-4.0); LYMPHOCYTES % (AUTO) 30 % (12-44); MEAN CORPUSCULAR HEMOGLOBIN 30 PG (25-34); MEAN CORPUSCULAR HGB CONC 34 G/DL (32-36); MEAN CORPUSCULAR VOLUME 90 FL (80-99); MEAN PLATELET VOLUME 10.7 FL (7.4-10.4); MONOCYTES # (AUTO) 0.6 X 10^3 (0.0-1.0); MONOCYTES % (AUTO) 12 % (0-12); NEUTROPHILS # (AUTO) 2.5 X 10^3 (1.8-7.8); NEUTROPHILS % (AUTO) 49 % (42-75); PLATELET COUNT 223 10^3/uL (130-400); RED BLOOD COUNT 4.75 10^6/uL (4.35-5.85); RED CELL DISTRIBUTION WIDTH 12.3 % (10.0-14.5)
[2018-03-25 04:25] LABS: ALANINE AMINOTRANSFERASE 11 U/L (0-55); ALBUMIN 4.4 GM/DL (3.2-4.5); ALKALINE PHOSPHATASE 57 U/L (40-136); BILIRUBIN,TOTAL 0.6 MG/DL (0.1-1.0); BUN/CREATININE RATIO 16; CALCIUM 9.4 MG/DL (8.5-10.1); CARBON DIOXIDE 22 MMOL/L (21-32); CHLORIDE 107 MMOL/L (98-107); CHOLESTEROL 184 MG/DL (< 200); CREATININE SERUM 0.76 MG/DL (0.60-1.30); GFR ESTIMATED > 60; GLUCOSE 84 MG/DL (70-105); HDL CHOLESTEROL 68 MG/DL (40-60); POTASSIUM 3.6 MMOL/L (3.6-5.0); SODIUM 141 MMOL/L (135-145); TRIGLYCERIDES 38 MG/DL (<150); VLDL CHOLESTEROL 8 MG/DL (5-40)
--- NOTE | 2018-03-25 06:31 | Pulmonary Consultation ---
History of Present Illness History of Present Illness Date of Consultation 03/25/18 06:26 Time Seen by Provider: 06:32 Date of Admission History of Present Illness 42yo presented to ED secondary to acute dizziness that started while eating dinner and continued to worsen. She states while in the shower she had to brace herself against the wall. No prior episodes like this. Head CT is negative. She denies, CP, palpitations, SOB, or cough. She is not requiring oxygen. She does take BC for migraines. Triamterene for fluid retention, and Botox for migraine PPX. She does not smoke. Only occasional alcohol use. Currently her symptoms are resolved. -no Fever/C/NS or leukocytosis Allergies and Home Medications Allergies Coded Allergies: No Known Drug Allergies (Unverified , 03/24/18) Home Medications Cetirizine Hcl 10 Mg Tablet, 10 MG PO DAILY PRN for ALLERGIES, (Reported) Diclofenac Potassium 50 Mg Tablet, 50 MG PO BID PRN for MIGRAINE, (Reported) Guaifenesin/P-Ephed Hcl 1 Each Tab.sr.12h, 1 TAB PO BID PRN for CONGESTION, ( Reported) Ibuprofen 200 Mg Tablet, 800 MG PO TID PRN for PAIN, (Reported) TAKES 4 (200MG) TABLETS Meperidine Hcl 50 Mg Tablet, 50 MG PO Q6H Prescribed by: ARIEL QUIROGA on 08/27/14 1116 Norelgestromin/Ethin.estradiol 1 Each Patch.tdwk, 1 PATCH TD UD, (Reported) WEAR FOR 3 WEEKS THEN OFF FOR 1 WEEK Ondansetron 8 Mg Tab.rapdis, 8 MG PO Q6H PRN for NAUSEA, (Reported) Triamterene/Hydrochlorothiazid 1 Udtab Tablet, 1 TAB PO DAILY PRN for DURING MONTHLY CYCLE, (Reported) Past Oawzkde-Hhginv-Eagbob Hx Past Med/Social Hx: Reviewed Nursing Past Med/Soc Hx Patient Social History Alcohol Use: Occasionally Uses Alcohol Beverage of Choice: Wine Recreational Drug Use: No Smoking Status: Never a Smoker Recent Foreign Travel: No Contact w/Someone Who Travel: No Recent Infectious Disease Expo: No Recent Hopitalizations: No Physical Abuse: No Sexual Abuse: No Mistreated: No Fear: No Immunizations Up To Date PED Vaccines UTD: No Date of Influenza Vaccine: Mar 03, 2014 Seasonal Allergies Seasonal Allergies: Yes Past Medical History Surgeries: Yes (tonsillectomy at age 21) Adenoidectomy, Tonsillectomy Respiratory: Yes (asthma) Asthma Currently Using CPAP: No Currently Using BIPAP: No Cardiac: No Chronic Edema/Swelling Neurological: Yes (migraines 15 times a month prior to Botox shots started in October 2017) Headaches /Migraines : No (uses control) Reproductive Disorders: No Genitourinary: No Gastrointestinal: No Musculoskeletal: No Endocrine: No HEENT: No Cancer: No Psychosocial: No Integumentary: No Blood Disorders: No Family Medical History Reviewed Nursing Family Hx Colonic polyps 19 FATHER DVT 19 FATHER FH: CABG (coronary artery bypass surgery) Hypercholesterolemia 19 MOTHER Hypertension 19 MOTHER MATERNAL GRANDMOTHER Pituitary disease 19 FATHER Review of Systems Time Seen by Provider: 06:40 Constitutional: Weakness, Malaise; No: Fever, Chills, Sweats, Other Eyes: No: Pain, Vision change, Conjunctivae inflammation, Eyelid inflammation, Other, Redness Respiratory: No: Cough, Dry, Shortness of breath, SOB with excertion, Wheezing , Hemoptysis, Pleuritic Pain, Sputum, Wheezing, Other Neurological: Incoordination Sepsis Event Evaluation Height, Weight, BMI Height: 5'5.50" Weight: 144lbs. 1.0oz. 65.746476ey; 23.6 BMI Method:Stated Exam Exam Vital Signs Date Time Temp Pulse Resp B/P (MAP) Pulse Ox O2 Delivery O2 Flow Rate FiO2 03/25/18 06:00 63 14 100/71 (81) 97 Room Air 03/25/18 05:00 59 14 104/72 (83) 96 Room Air 03/25/18 04:00 96.0 03/25/18 04:00 52 14 100/68 (79) 97 Room Air 03/25/18 04:00 Room Air 03/25/18 03:00 57 13 99/67 (78) 99 Room Air 03/25/18 02:00 60 14 95/66 (76) 96 Room Air 03/25/18 01:00 58 13 101/70 (80) 96 Room Air 03/25/18 00:45 Room Air 03/25/18 00:45 63 14 104/70 (81) 96 Room Air 03/25/18 00:30 63 16 94/76 (82) 96 Room Air 03/25/18 00:16 98.2 62 15 100/75 (83) 97 Room Air 03/25/18 00:10 69 03/25/18 00:00 98.2 59 20 109/78 (88) 98 Room Air 03/24/18 21:13 73 18 135/106 99 03/24/18 20:58 98 Room Air 03/24/18 20:56 98.3 77 20 129/82 (98) 99 Room Air I & O 03/25/18 07:00 Intake Total 0 ml Output Total 0 ml Balance 0 ml Height & Weight Height: 5'5.50" Weight: 144lbs. 1.0oz. 65.417382zf; 23.6 BMI Method:Stated General Appearance: No Apparent Distress, WD/WN HEENT: PERRL/EOMI, Normal ENT Inspection, Pharynx Normal Neck: Full Range of Motion, Non Tender, Supple Respiratory: Chest Non Tender, Lungs Clear, Normal Breath Sounds, No Accessory Muscle Use, No Respiratory Distress Cardiovascular: Regular Rate, Rhythm, No Edema, No Gallop Capillary Refill: Less Than 3 Seconds Gastrointestinal: normal bowel sounds, non tender, soft Extremity: Normal Capillary Refill, Normal Inspection Neurologic/Psychiatric: Alert, Oriented x3 Skin: Normal Color, Warm/Dry Lymphatic: No Adenopathy Results Lab Laboratory Tests 03/24/18 21:24 03/25/18 03:25 Assessment/Plan Assessment/Plan Dizziness -CT head/neck negative -MRI brain is pending -check TSH, t4, t3 -preg test is neg -no Fever or leukocytosis Hx of migraines KELSEY TORRES DO Mar 25, 2018 06:31
--- NOTE | 2018-03-25 06:40 | Diagnostic Imaging Report ---
INDICATION: Stroke. FINDINGS: Heart size is normal. There is right middle lobe infiltrate suspect for pneumonia. Mediastinum is unremarkable. There is no pleural effusion or pneumothorax. IMPRESSION: Right middle lobe infiltrate suspect for pneumonia. Dictated by: Dictated on workstation # [id number]
[2018-03-25] MEDS ORDERED: FLU QUADRIvalent (5+ YOA) 2018-2019 (AFLURIA) 0.5 ML IM ONE ×2 (07:00→09:49)
[2018-03-25 07:08] LABS: FREE T4 (FREE THYROXINE) 1.08 NG/DL (0.70-1.48)
[2018-03-25] MEDS ORDERED: DICL50TA4 PO (08:43)
[2018-03-25] MEDS ORDERED: TRIA1TAB3 PO (08:43)
[2018-03-25] MEDS ORDERED: MONT10TA24 PO (08:43)
[2018-03-25] MEDS ORDERED: IBUP-2055 PO (08:43)
[2018-03-25] MEDS ORDERED: NORE0.3543 PO (08:43)
[2018-03-25] MEDS ORDERED: CETI10TA17 PO (08:43)
[2018-03-25] MEDS ORDERED: ONDA8TAB13 PO (08:43)
[2018-03-25] MEDS ORDERED: ZOLM5TAB10 PO (08:43)
[2018-03-25] MEDS ORDERED: SCOPOLAMINE 1.5 MG (TRANSDERM-SCOP) PATCH TD NR (09:00)
--- NOTE | 2018-03-25 09:15 | Diagnostic Imaging Report ---
CLINICAL INDICATION: Patient with disequilibrium, lightheadedness, and fog-headed feelings. EXAM: MRI of the brain performed without IV contrast. Sequences include axial DWI, ADC map, axial T2, axial FLAIR, axial T1, axial gradient echo, and sagittal T1. COMPARISON: CT angiogram of the head/neck dated 03/24/2018. FINDINGS: There is no evidence of acute cerebral infarct, intracranial hemorrhage, or gross mass effect. The brain parenchymal volume appears appropriate for the patient's age. There is normal gonsalez/white matter distinction. There is no significant midline shift or herniation. The [place] vascular structures show no gross abnormality as visualized. The pituitary gland, sella, and suprasellar regions are unremarkable as visualized. There is no evidence of hydrocephalus. The basal cisterns are unremarkable. The skull, extracranial soft tissue, and orbits are unremarkable. There is mild mucosal thickening involving both maxillary sinuses and minimal mucosal thickening involving the ethmoid sinus. The temporal bones show no significant abnormality. IMPRESSION: Mild paranasal sinus disease. Otherwise, unremarkable MRI of the brain. Dictated by: Dictated on workstation # [id number]
--- NOTE | 2018-03-25 09:27 | Short Stay Summary-Hospitalist ---
History of Present Illness HPI/Chief Complaint CC: Near syncope with severe vertigo HPI: This is a 42yoWF clinic patient of mine for many years with a h/o severe migraines and HLP whio presented to the ER w/severe vertigo and unable to ambulate. She was assessed and placed in stroke activation and all w/u returned back normal. She reports that she was not feeling well when she had supper at [employer] and then was taking her clothes off to get into a hot shower when she kept falling to the right and fell and hit the bathroom door. She called out to her who immediately brought her to the ER thinking she had a stroke. More details obtained has revealed positional vertigo as the likely source of the episode and likely had orthostasis causing near syncope. MRI was normal except some sinus disease so a Scop patch was placed along with maintaining Meclizine and she will be DC with close f/u with me on . Source: patient, family, RN/MD Exam Limitations: no limitations Date Seen 03/25/18 Time Seen by a Provider: 08:45 Attending Physician Junaid Flores MD PCP Hilaria Gallego DO Referring Physician Date of Admission Mar 24, 2018 at 23:11 Home Medications & Allergies Home Medications Reviewed patient Home Medication Reconciliation performed by pharmacy medication reconciliations warehousing technician and/or nursing. Patients Allergies have been reviewed. Allergies Allergies Coded Allergies No Known Drug Allergies (Bsdxzcsuzb56/22/18) Past Aefmefk-Qzvnwm-Xioxzk Hx Past Med/Social Hx: Reviewed Nursing Past Med/Soc Hx, Reviewed and Corrections made Patient Social History Marrital Status: Employed/Student: employed Alcohol Use: Occasionally Uses Alcohol Beverage of Choice: Wine Recreational Drug Use: No Smoking Status: Never a Smoker Physical Abuse Screen: No Sexual Abuse: No Recent Foreign Travel: No Contact w/other who traveled: No Recent Hopitalizations: No Recent Infectious Disease Expo: No Immunizations Up To Date Pediatric: No Date of Influenza Vaccine: Mar 03, 2014 Seasonal Allergies Seasonal Allergies: Yes Past Medical History Surgeries: Adenoidectomy, Tonsillectomy Currently Using CPAP: No Currently Using BIPAP: No Cardiac: Chronic Edema/Swelling Neurological: Headaches /Migraines : No (uses control) Reproductive: No History of Blood Disorders: No Family History Reviewed Nursing Family Hx Colonic polyps 19 FATHER DVT 19 FATHER FH: CABG (coronary artery bypass surgery) Hypercholesterolemia 19 MOTHER Hypertension 19 MOTHER MATERNAL GRANDMOTHER Pituitary disease 19 FATHER Hypertension Review of Systems Constitutional: see HPI, dizziness, malaise, weakness EENTM: nose congestion Respiratory: no symptoms reported Cardiovascular: no symptoms reported Gastrointestinal: no symptoms reported Genitourinary: no symptoms reported Musculoskeletal: no symptoms reported Skin: no symptoms reported Psychiatric/Neurological: Headache, Numbness, Tingling All Other Systems Reviewed Negative Unless Noted: Yes Physical Exam Physical Exam Vital Signs Vital Signs - First Documented 03/24/18 20:56 Temp 98.3 Pulse 77 Resp 20 B/P (MAP) 129/82 (98) Pulse Ox 99 O2 Delivery Room Air Capillary Refill : Less Than 3 Seconds Height, Weight, BMI Height: 5'5.50" Weight: 141lbs. 4.0oz. 64.560168tp; 23.6 BMI Method:Stated General Appearance: No Apparent Distress, WD/WN Eyes: Bilateral Eye Normal Inspection, Bilateral Eye PERRL, Bilateral Eye EOMI HEENT: PERRL/EOMI, TMs Normal, Normal ENT Inspection, Pharynx Normal Neck: Full Range of Motion, Normal Inspection, Non Tender, Supple, Carotid Bruit Respiratory: Chest Non Tender, Lungs Clear, Normal Breath Sounds, No Accessory Muscle Use, No Respiratory Distress Cardiovascular: Regular Rate, Rhythm, No Edema, No Gallop, No JVD, No Murmur, Normal Peripheral Pulses Gastrointestinal: Normal Bowel Sounds, No Organomegaly, No Pulsatile Mass, Non Tender, Soft Back: Normal Inspection, No CVA Tenderness, No Vertebral Tenderness Extremity: Normal Capillary Refill, Normal Inspection, Normal Range of Motion, Non Tender, No Calf Tenderness, No Pedal Edema Neurologic/Psychiatric: Alert, Oriented x3, No Motor/Sensory Deficits, Normal Mood/Affect Skin: Normal Color, Warm/Dry Lymphatic: No Adenopathy Results Results/Procedures Labs Laboratory Tests 03/24/18 21:24 03/25/18 03:25 Patient resulted labs reviewed. Short Stay Diagnosis Discharge Diagnosis-Short Stay Admission Diagnosis Near syncope Possible stroke h/o severe migraines HLP Final Discharge Diagnosis Benign positional vertigo Orthostasis Severe migraines HLP Conclusion Plan Plan: appt with me Sudafed, Claritin, Meclizine, and Scop patch at [place] Taught her how to perform exercises for BPV Diagnosis/Problems Diagnosis/Problems (1) Benign positional vertigo Status: Acute Qualifiers: Qualified Codes: H81.10 - Benign paroxysmal vertigo, unspecified ear (2) Orthostasis Status: Acute (3) Migraine Status: Chronic Qualifiers: Qualified Codes: G43.009 - Migraine without aura, not intractable, without status migrainosus (4) Sinus congestion Status: Acute Clinical Quality Measures DVT/VTE Risk/Contraindication: Risk Factor Score Per Nursin RFS Level Per Nursing on Admit: 3=High HILARIA GALLEGO DO Mar 25, 2018 09:27
[2018-03-25] MEDS ORDERED: MECL-106 PO (09:30)
[2018-03-25] MEDS ORDERED: ZOLMITRIPTAN 5 MG PO PRN (09:30)
[2018-03-25] MEDS ORDERED: NON-FORMULARY MEDICATION 1 EA EA (Cetirizine HCl 10 MG) PO PRN (09:30)
[2018-03-25] MEDS ORDERED: ONDANSETRON 8 MG (ZOFRAN) ORAL DISSOLVE TAB PO PRN (09:30)
[2018-03-25] MEDS ORDERED: NON-FORMULARY MEDICATION 1 EA EA (Ibuprofen 800 MG) PO PRN (09:30)
[2018-03-25] MEDS ORDERED: PSEU-137 PO (09:30)
[2018-03-25] MEDS ORDERED: SCOP1PAT11 TD (09:30)
[2018-03-25] MEDS ORDERED: NON-FORMULARY MEDICATION 1 EA EA (Diclofenac Potassium 50 MG) PO PRN (09:30)
[2018-03-25] MEDS ORDERED: MONTELUKAST 10 MG (SINGULAIR) TAB PO SCH (21:00)
[2018-03-26] MEDS ORDERED: NON-FORMULARY MEDICATION 1 EA EA (Triamterene/Hydrochlorothiazid (Triamterene-Hctz 37.5-25 PO SCH ×2 (09:00→09:15)
[2018-03-26] MEDS ORDERED: NORETHINDRONE PO SCH ×2 (09:00→09:15)
[2018-03-28] MEDS ORDERED: SCOPOLAMINE PATCH REMOVAL TP SCH (09:00)
--- OUTSIDE RECORDS SUMMARY | 2018-03-28 13:22 | XMS REPORT | Clinical Summary ---
Author Author [facility] Organization [facility] Address Unknown Phone Unavailable Care Team Providers Care Presidential Support Specialist Name Role Phone PCP Unavailable Allergies Not [...]
--- OUTSIDE RECORDS SUMMARY | 2018-03-28 13:25 | XMS REPORT | Continuity of Care Document ---
Author Author [facility] Organization [facility] Address Unknown Phone Unavailable Allergies Active Description Code Type Severity Reaction Onset Reported/Identified Relationship to Patient Clinical Status Yes No Known Drug Allergies [id number] Drug Allergy Unknown N/A 03/24/2018 Medications There is no data. Problems Date Dx Coded Attending Type Code Diagnosis Diagnosed By 08/27/2014 ARIEL QUIROGA DO Ot 276.51 DEHYDRATION 08/27/2014 DERIC QUIROGA DOI Ot 346.90 MIGRAINE UNSPECIFIED W/O INTRACT MGRN [...] 793.80 UNSPEC ABNORMAL MAMMOGRAM 02/24/2018 ALON BROWN DRY MILL OPERATOR Ot M79.641 PAIN IN RIGHT HAND 02/24/2018 ALON BROWN DRY MILL OPERATOR Ot S69.91XA UNSP INJURY OF RIGHT WRIST, HAND AND FIN 02/24/2018 STEPHANIE ALON L DRY MILL OPERATOR Ot W19.XXXA UNSPECIFIED FALL, INITIAL ENCOUNTER 03/05/2018 ALON BROWN DRY MILL OPERATOR Ot M79.641 PAIN IN RIGHT HAND 03/05/2018 ALON BROWN DRY MILL OPERATOR Ot S69.91XA UNSP INJURY OF RIGHT WRIST, HAND AND FIN 03/05/2018 ALON BROWN DRY MILL OPERATOR Ot W19.XXXA UNSPECIFIED FALL, INITIAL ENCOUNTER [...] detection in urine sediment by light microscopy 1025 NRG Crystals detection in urine sediment by light microscopy NONE NRG Casts detection in urine sediment by light microscopy NONE NRG Mucus detection in urine sediment by light microscopy NEGATIVE NRG Complete urinalysis with reflex to culture YES NRG Bacterial urine culture - 03/24/18 22:35 Bacterial urine culture NG NRG THYROID STIMULATING HORMONE - 03/25/18 03:20 THYROID STIMULATING HORMONE 3.14 u[iU]/mL 0.35-4.94 Serum or plasma thyroxine (T4) free measurement (mass/volume) - 03/25/18 03:20 Serum or plasma thyroxine (T4) free measurement (mass/volume) 1.08 ng/dL 0.70-1.48 TRIIODOTHRYONINE T3 FREE - 03/25/18 03:20 TRIIODOTHYRONINE T3 FREE 2.37 pg/mL 1.71-3.71 Complete blood count (CBC) with automated white blood cell (WBC) differential - 03/25/18 03:25 Blood leukocytes automated count (number/volume) 5.0 10*3/uL 4.3-11.0 Blood erythrocytes automated count (number/volume) 4.75 10*6/uL 4.35-5.85 Venous blood hemoglobin measurement (mass/volume) 14.3 g/dL 11.5-16.0 Blood hematocrit (volume fraction) 43 % 35-52 Automated erythrocyte mean corpuscular volume 90 [foz_us] 80-99 Automated erythrocyte mean corpuscular hemoglobin (mass per erythrocyte) 30 pg 25-34 Automated erythrocyte mean corpuscular hemoglobin concentration measurement ( mass/volume) 34 g/dL 32-36 Automated erythrocyte distribution width ratio 12.3 % 10.0-14.5 Automated blood platelet count (count/volume) 223 10*3/uL 130-400 Automated blood platelet mean volume measurement 10.7 [foz_us] 7.4-10.4 Automated blood neutrophils/100 leukocytes 49 % 42-75 Automated blood lymphocytes/100 leukocytes 30 % 12-44 Blood monocytes/100 leukocytes 12 % 0-12 Automated blood eosinophils/100 leukocytes 8 % 0-10 Automated blood basophils/100 leukocytes 1 % 0-10 Blood neutrophils automated count (number/volume) 2.5 10*3 1.8-7.8 Blood lymphocytes automated count (number/volume) 1.5 10*3 1.0-4.0 Blood monocytes automated count (number/volume) 0.6 10*3 0.0-1.0 Automated eosinophil count 0.4 10*3/uL 0.0-0.3 Automated blood basophil count (count/volume) 0.1 10*3/uL 0.0-0.1 Comprehensive metabolic panel - 03/25/18 03:25 Serum or plasma sodium measurement (moles/volume) 141 mmol/L 135-145 Serum or plasma potassium measurement (moles/volume) 3.6 mmol/L 3.6-5.0 Serum or plasma chloride measurement (moles/volume) 107 mmol/L 98-107 Carbon dioxide 22 mmol/L 21-32 Serum or plasma anion gap determination (moles/volume) 12 mmol/L 5-14 Serum or plasma urea nitrogen measurement (mass/volume) 12 mg/dL 7-18 Serum or plasma creatinine measurement (mass/volume) 0.76 mg/dL 0.60-1.30 Serum or plasma urea nitrogen/creatinine mass ratio 16 NRG Serum or plasma creatinine measurement with calculation of estimated glomerular filtration rate > NRG Serum or plasma glucose measurement (mass/volume) 84 mg/dL 70-105 Serum or plasma calcium measurement (mass/volume) 9.4 mg/dL 8.5-10.1 Serum or plasma total bilirubin measurement (mass/volume) 0.6 mg/dL 0.1-1.0 Serum or plasma alkaline phosphatase measurement (enzymatic activity/volume) 57 U/L 40-136 Serum or plasma aspartate aminotransferase measurement (enzymatic activity/ volume) 13 U/L 5-34 Serum or plasma alanine aminotransferase measurement (enzymatic activity/volume ) 11 U/L 0-55 Serum or plasma protein measurement (mass/volume) 7.0 g/dL 6.4-8.2 Serum or plasma albumin measurement (mass/volume) 4.4 g/dL 3.2-4.5 CALCIUM CORRECTED 9.1 mg/dL 8.5-10.1 Lipid 1996 panel - 03/25/18 03:25 Serum or plasma triglyceride measurement (mass/volume) 38 mg/dL <150 Serum or plasma cholesterol measurement (mass/volume) 184 mg/dL < 200 Serum or plasma cholesterol in HDL measurement (mass/volume) 68 mg/ dL 40-60 Cholesterol in LDL [mass/volume] in serum or plasma by direct assay 117 mg/dL 1-129 Serum or plasma cholesterol in VLDL measurement (mass/volume) 8 mg/ dL 5-40 Encounters ACCT No. Visit Date/Time Discharge Status Pt. Type Provider Facility Loc./Unit Complaint [id number] 03/25/2018 00:06:00 03/26/2018 14:53:00 DIS Inpatient LUIS LIU MD [facility] ICU DISEQUILIBRIUM [id number] 02/21/2018 15:31:00 02/21/2018 23:59:59 CLS Outpatient ALON BROWN DRY MILL OPERATOR [facility] RAD RIGHT HAND XRAY [id number] 10/17/2017 13:57:00 10/17/2017 23:59:59 CLS Outpatient QUIROGA DO, ARIEL [facility] RAD PNEUMONIA [id number] 08/26/2017 16:42:00 08/26/2017 23:59:59 CLS Outpatient QUIROGA DO, ARIEL [facility] RT UNSPECIFIED ASTHMA [id number] 07/22/2017 11:36:00 07/22/2017 23:59:59 CLS Preadmit QUIROGA DO, ARIEL [facility] RT UNSPECIFIED ASTHMA, UNCOMPLICATED [id number] 04/22/2017 16:05:00 04/22/2017 23:59:59 CLS Preadmit QUIROGA DO, ARIEL [facility] RAD SCREENING [id number] 01/18/2017 12:53:00 01/18/2017 23:59:59 CLS Outpatient QUIROGA DO, ARIEL [facility] SDC MIGRAIN,N/V DEYDRATION [id number] 01/18/2017 11:19:00 01/18/2017 12:40:00 DIS Emergency YONI POOLE DO [facility] ER MIGRAINE [id number] 04/08/2015 07:27:00 04/08/2015 23:59:59 CLS Outpatient QUIROGA DO, ARIEL [facility] RAD SCREENING [id number] 10/11/2014 07:30:00 10/11/2014 23:59:59 CLS Preadmit QUIROGA DO, ARIEL [facility] RAD SCREENING [id number] 09/02/2014 14:27:00 09/02/2014 23:59:59 CLS Outpatient QUIROGA DO, ARIEL [facility] RAD HEADACHE [id number] 08/26/2014 15:05:00 08/27/2014 12:15:00 DIS Inpatient QUIROGA DO, ARIEL [facility] 4TH MIGRAINES [id number] 03/26/2013 14:11:00 03/26/2013 23:59:59 CLS Outpatient QUIROGA DO, ARIEL [facility] RAD ABNORMAL MAMMO [id number] 10/02/2012 07:22:00 10/02/2012 23:59:59 CLS Outpatient QUIROGA DO, ARIEL [facility] RAD [id number] 08/27/2014 10:10:00 Document Registration [id number] 09/16/2012 07:17:00 Document Registration [id number] 09/18/2011 10:28:00 Document Registration [id number] 09/02/2014 14:27:42 ACT Document Registration
--- NOTE | 2018-03-31 15:02 | Physician Query-Final Dx ---
SUZANNA DAMIAN 03/31/18 1502: Clinic Account Progress/Dx Physician Query: Please specitfy the Benign positional vertigo if known thank you Date of Service Mar 24, 2018 at 20:51 DIAGNOSIS: Diagnosis: (1) Benign positional vertigo Qualifiers: Qualified Codes: H81.10 - Benign paroxysmal vertigo, unspecified ear (2) Orthostasis (3) Migraine Qualifiers: Qualified Codes: G43.009 - Migraine without aura, not intractable, without status migrainosus (4) Sinus congestion ARIEL QUIROGA DO 03/31/18 2043: Clinic Account Progress/Dx DIAGNOSIS: Diagnosis unknown SUZANNA DAMIAN Mar 31, 2018 15:02 ARIEL QUIROGA DO Mar 31, 2018 20:43
== END 2018-03-25 09:31 | disposition home or self-care (01) ==
LOC: EDUNIT# 20:50 → ER 20:51 → ICU 20:52 → UNDOADMOB 23:11 → ICU 23:19 → UNDOADMOB 03-25 00:06 → ICU 03-25 00:06 → UNDODISOB 03-25 09:31
PROVIDERS: ADMIT Internal Medicine; ATTEND Internal Medicine
DX: H81.10 Benign paroxysmal vertigo, unspecified ear (principal); I95.1 Orthostatic hypotension; G43.909 Migraine, unspecified, not intractable, without status migrainosus; R09.81 Nasal congestion; E78.5 Hyperlipidemia, unspecified; J45.909 Unspecified asthma, uncomplicated; Z79.899 Other long term (current) drug therapy; Z23 Encounter for immunization
CPT/HCPCS: 36415; 70496; 70498; 70551; 71045; 80053; 80061; 81000; 82962; 84439; 84443; 84481; 84484; 84703; 85025; 85379; 85610; 85730; 87088; 90471; 90686; 93005; 93041

== ENCOUNTER → 2018-03-31 | Outpatient (CLI) | payer BC ==
[~2018-03-31] MED LIST changes: +IBUP-2055 PO; +MECL-106 PO; +MONT10TA24 PO; +NORE0.3543 PO; +PSEU-137 PO; +SCOP1PAT11 TD; +ZOLM5TAB10 PO
--- NOTE | 2018-03-31 17:13 | Diagnostic Imaging Report ---
INDICATION: Asthma. TIME OF EXAM: 4:00 p.m. COMPARISON: Correlation is made with prior study from 03/24/2018. FINDINGS: The heart size is stable. Lungs are clear. The pulmonary vascularity is normal. No effusion or pneumothorax is identified. IMPRESSION: No acute cardiopulmonary process is detected. Dictated by: Dictated on workstation # [id number]
== END ==
LOC: RAD 15:28
PROVIDERS: ATTEND Internal Medicine
DX: J45.909 Unspecified asthma, uncomplicated (principal)
CPT/HCPCS: 71045

== ENCOUNTER → 2018-04-21 | Outpatient (CLI) | payer BC ==
--- NOTE | 2018-04-22 10:30 | Diagnostic Imaging Report ---
Digital mammogram. Bilateral screening with 3-D tomosynthesis. The study was compared to prior exams of 04/08/2015 and 09/16/2012. At this time there are no current complaints. FINDINGS: The fibroglandular tissue in both breasts is dense. This does limit the sensitivity of this exam. Overall, there does not appear to have been any significant change when compared to the prior study. No primary or secondary sign of malignancy is noted. IMPRESSION: 1. There is no radiographic evidence for malignancy. 2. The patient should have her annual bilateral screening mammogram on schedule in April of 2019. ACR BI-RADS Category 1: Negative. Result letter will be mailed to the patient. Note: At least 10% of breast cancer is not imaged by mammography. Dictated by: Dictated on workstation # [id number]
== END ==
LOC: RAD 09:40
PROVIDERS: ATTEND Obstetrics & Gynecology
DX: Z12.31 Encounter for screening mammogram for malignant neoplasm of breast (principal)
CPT/HCPCS: 77067

== ENCOUNTER → 2019-12-11 | Outpatient (CLI) | payer BC ==
[~2019-12-11] MED LIST changes: -IBUP-2055 PO; +IBUP-2473 PO; -MECL-106 PO; +MECL-149 PO; -MONT10TA24 PO; +MONT10TA26 PO; -ZOLM5TAB10 PO; +ZOLM5TAB34 PO
--- NOTE | 2019-12-11 11:12 | Diagnostic Imaging Report ---
INDICATION: Routine screening. Comparison is made with prior mammogram 04/21/2018 and 04/08/2015. 2-D and 3-D bilateral screening mammography was performed with CAD. Both breasts are heterogeneously dense, limiting the sensitivity of mammography. Benign calcifications are noted. Overall breast parenchymal pattern appears to be stable. No dominant mass or malignant-appearing microcalcifications are seen. Axillae are unremarkable. IMPRESSION: BI-RADS Category 2 No mammographic features suspicious for malignancy are identified. ACR BI-RADS Category 2: Benign findings. Result letter will be mailed to the patient. Note: At least 10% of breast cancer is not imaged by mammography. Dictated by: Dictated on workstation # [id number]
== END ==
LOC: RAD 09:01
PROVIDERS: ATTEND Internal Medicine
DX: Z12.31 Encounter for screening mammogram for malignant neoplasm of breast (principal)
CPT/HCPCS: 77063; 77067

== ENCOUNTER → 2020-02-24 | Outpatient (CLI) | payer BC ==
--- NOTE | 2020-02-24 12:29 | Diagnostic Imaging Report ---
INDICATION: Right elbow pain. Time of exam 11:56 AM 3 views right elbow were obtained. Alignment is normal. Joint spaces are well maintained. No fracture, dislocation or effusion is identified. IMPRESSION: No acute bony abnormality is detected. Dictated by: Dictated on workstation # [id number]
== END ==
LOC: ORTHO 10:57
PROVIDERS: ATTEND Orthopaedic Surgery
DX: S46.919A Strain of unspecified muscle, fascia and tendon at shoulder and upper arm level, unspecified arm, initial encounter (principal)
CPT/HCPCS: 73080

== ENCOUNTER → 2020-08-22 | Outpatient (CLI) | payer BC ==
[~2020-08-22] MED LIST changes: +GADOBUTROL 7.5 MMOL/7.5 ML (GADAVIST) VIAL IV ONE; -MONT10TA26 PO; +MONT10TA32 PO
--- NOTE | 2020-08-22 10:01 | Diagnostic Imaging Report ---
EXAM: MRI BRAIN PITUITARY W/WO CON INDICATION: Elevated prolactin levels. COMPARISON: MRI brain without contrast 03/25/2018. FINDINGS: No abnormal intracranial signal or enhancement. No restricted water diffusion. No hemosiderin deposition or evidence of intracranial hemorrhage. Dedicated sequences of the sella demonstrate ill-defined hypoenhancing nodule in the left sella measuring up to 0.5 x 0.4 cm. There is mild rightward deviation of the pituitary infundibulum. No evidence of cavernous sinus invasion or mass effect upon the optic chiasm. Normal morphology of the major midline structures, posterior fossa and cerebellar pontine angle. Normal intracranial flow voids. No hydrocephalus or extra-axial fluid collections. The orbits are negative. Mild mucosal thickening in the maxillary and ethmoid sinuses. The mastoids are clear. Normal bone marrow signal. IMPRESSION: 1. 0.5 cm hypoenhancing ill-defined nodule in the left sella is suspicious for a pituitary microadenoma. There is mild rightward deviation of the pituitary infundibulum. 2. MRI of the brain is otherwise negative. No acute findings. Dictated by: Dictated on workstation # [id number]
== END ==
LOC: RAD 08:23
PROVIDERS: ATTEND Internal Medicine
DX: D35.2 Benign neoplasm of pituitary gland (principal)
CPT/HCPCS: 70553

== ENCOUNTER → 2021-01-31 | Outpatient (CLI) | payer BC ==
[~2021-01-31] MED LIST changes: -GADOBUTROL 7.5 MMOL/7.5 ML (GADAVIST) VIAL IV ONE
--- NOTE | 2021-01-31 12:52 | Diagnostic Imaging Report ---
Indication: Routine screening. Comparison is made with prior mammogram from 12/11/2019 04/21/2018. 2-D and 3-D bilateral screening mammography was performed with CAD. Both breasts are heterogeneously dense, limiting the sensitivity of mammography. The parenchymal pattern is stable. No dominant mass or malignant-appearing microcalcifications are seen. Axillae are unremarkable. IMPRESSION: BI-RADS Category 1 No mammographic features suspicious for malignancy are identified. ACR BI-RADS Category 1: Negative. Result letter will be mailed to the patient. Note: At least 10% of breast cancer is not imaged by mammography. Dictated by: Dictated on workstation # [id number]
== END ==
LOC: RAD 08:00
PROVIDERS: ATTEND Obstetrics & Gynecology
DX: Z12.31 Encounter for screening mammogram for malignant neoplasm of breast (principal)
CPT/HCPCS: 77063; 77067

== ENCOUNTER 2021-09-29 12:57 | Outpatient (RCR) | payer BC ==
[2021-09-27 13:13] VITALS: BP 116/82
[2021-09-27] MEDS: IRON SUCROSE 200 MG/10 ML (VENOFER) VIAL IV SCH (13:47)
[~2021-09-29] VITALS: Ht 165.5 cm; Wt 81.8 kg
[~2021-09-29 12:57] MED LIST changes: +MONT-40 PO; -MONT10TA32 PO; -PSEU-137 PO; +PSEU-182 PO; +SCOP1PAT10 TD; -SCOP1PAT11 TD; +diphenhydrAMINE 25 MG TAB (BENADRYL) PO ONE
[2021-09-29 13:05] VITALS: BP 119/78
[2021-09-29] MEDS: IRON SUCROSE 200 MG/10 ML (VENOFER) VIAL IV SCH (13:29)
== END 2021-09-30 | disposition home or self-care (01) ==
LOC: SDC 12:57
PROVIDERS: ATTEND Internal Medicine
DX: E61.1 Iron deficiency (principal)
CPT/HCPCS: 96365

== ENCOUNTER 2021-10-02 07:30 | Outpatient (RCR) | payer BC ==
[~2021-10-02 07:30] MED LIST changes: -diphenhydrAMINE 25 MG TAB (BENADRYL) PO ONE
[2021-10-02 07:37] VITALS: BP 119/78
[2021-10-02] MEDS ORDERED: IRON SUCROSE 200 MG/10 ML (VENOFER) VIAL IV SCH (07:45)
[2021-10-02] MEDS ORDERED: diphenhydrAMINE 25 MG TAB (BENADRYL) PO ONE (07:45)
[2021-10-20] MEDS ORDERED: BUDE10.22 IH (13:15)
[2021-10-20] MEDS ORDERED: DULO60CA7 PO (13:15)
[2021-10-31] MEDS ORDERED: PANT40TA2 PO (14:00)
== END 2021-10-31 | disposition home or self-care (01) ==
LOC: SDC 07:30
PROVIDERS: ATTEND Internal Medicine
DX: E61.1 Iron deficiency (principal)
CPT/HCPCS: 96365

== ENCOUNTER 2021-10-18 12:47 | Outpatient (CLI) | payer BC ==
[~2021-10-18] VITALS: Ht 165.1 cm; Wt 81.6 kg
[2021-10-20] MEDS ORDERED: DULO60CA7 PO (13:15)
[2021-10-20] MEDS ORDERED: BUDE10.22 IH (13:15)
== END 2021-10-23 15:08 | disposition home or self-care (01) ==
LOC: PREOP 12:47
PROVIDERS: ATTEND Surgery
DX: Z01.818 Encounter for other preprocedural examination (principal)

== ENCOUNTER 2021-10-31 12:11 | Day surgery (SDC) | payer BC ==
[~2021-10-31] VITALS: Ht 168 cm; Wt 81.6 kg
[~2021-10-31 12:11] MED LIST changes: +BUDE10.22 IH; +DULO60CA7 PO
[2021-10-31] MEDS ORDERED: LACTATED RINGERS 1,000 ML IV ONE (12:28)
[2021-10-31] MEDS ORDERED: LACTATED RINGERS 1,000 ML IV STA (12:33)
[2021-10-31 12:35] VITALS: BP 126/75
[2021-10-31] MEDS ORDERED: HURRICAINE EXT TUBE (BENZOCAINE) XX PRN (12:45)
--- NOTE | 2021-10-31 13:18 | Progress Note-Pre Operative ---
Pre-Operative Progress Note H&P Reviewed The H&P was reviewed, patient examined and no changes noted. Date Seen by Provider: October 31, 2021 Time Seen by Provider: 13:17 Date H&P Reviewed: October 31, 2021 Time H&P Reviewed: 13:17 Pre-Operative Diagnosis: celiac, unintentional wt gain, anemia BISMARK MULLER DO October 31, 2021 13:18
[2021-10-31] MEDS ORDERED: PROPOFOL INJECTION 50 ML IV ONE ×2 (13:25→13:39)
[2021-10-31] MEDS ORDERED: MIDAZOLAM 2 MG/2 ML (VERSED) VIAL ONE (13:28)
[2021-10-31 14:00] VITALS: BP 93/56
[2021-10-31] MEDS ORDERED: PANT40TA2 PO (14:00)
--- NOTE | 2021-10-31 14:00 | Discharge Inst-Simple/Standard ---
Discharge Inst-Standard Discharge Medications New, Converted or Re-Newed RX: Transmitted to Pharmacy Patient Instructions/Follow Up Plan of Care/Instructions/FU: 2 week Oscar Activity as Tolerated: Yes Discharge Diet: Regular Diet (high fiber) BISMARK MULLER DO October 31, 2021 14:00
--- NOTE | 2021-10-31 14:02 | Progress Note-Post Operative ---
Post-Operative Progess Note Surgeon (s)/Registered Nurse Float Pool (s) Surgeon BISMARK MULLER DO Registered Nurse Float Pool: na Pre-Operative Diagnosis celiac, unintentional wt gain, anemia Post-Operative Diagnosis slight gastritis, diverticulosis Procedure & Operative Findings Date of Procedure 10/31/21 Procedure Performed/Findings egd c biopsies, colonoscopy Anesthesia Type per pathology technologist Estimated Blood Loss Estimated blood loss (mL): none Specimens/Packing Specimens Removed duodenum, antrum, ge BISMARK MULLER DO October 31, 2021 14:02
[2021-10-31 14:05] VITALS: BP 96/64
[2021-10-31 14:15] VITALS: BP 106/63
[2021-10-31 14:27] VITALS: BP 90/72
--- NOTE | 2021-10-31 14:38 | Anesthesia-General Post-Op ---
MAC Patient Condition Mental Status/LOC: Same as Preop Cardiovascular: Satisfactory Nausea/Vomiting: Absent Respiratory: Satisfactory Pain: Controlled Complications: Absent Post Op Complications Complications None Follow Up Care/Instructions Patient Instructions None needed. Anesthesiology Discharge Order Discharge Order Patient is doing well, no complaints, stable vital signs, no apparent adverse anesthesia problems. No complications reported per nursing. ARLET MCKENZIE CRNA October 31, 2021 14:38
--- NOTE | 2021-10-31 22:17 | OPERATIVE REPORT ---
DATE OF SERVICE: 10/31/2021 PREOPERATIVE DIAGNOSES: Celiac, unintentional weight gain, anemia. POSTOPERATIVE DIAGNOSES: Slight gastritis, diverticulosis. PROCEDURE: EGD with biopsies, colonoscopy. SURGEON: Gerardo Moore DO ANESTHESIA: Per HUMIDIFIER OPERATOR. ESTIMATED BLOOD LOSS: None. COMPLICATIONS: None. SPECIMENS: Duodenum, Antrum, GE junction. INDICATIONS: The patient is a 46-year-old female, who has had some unintentional weight gain and diagnosis with celiac disease, possibly. She would like to have biopsy of the duodenum obtained. She has also been slightly anemic as well. The patient would like to have EGD and colonoscopy performed. She understands risks and benefits and wishes to proceed. Consent was signed and on the chart. DESCRIPTION OF PROCEDURE: The patient was taken to the endoscopy suite, placed in left lateral recumbent position. Timeout was performed. Scope was inserted in mouth, down the esophagus, stomach and into the duodenum without difficulty. No polyps, masses or ulcerations within the duodenum. A biopsy of the duodenum was obtained. Scope was slowly retracted back into the stomach where it was further insufflated. Slight erythematous changes suggest a slight gastritis present. Biopsy of the antrum was obtained. Scope was retroflexed noting no other pathology. Scope was returned to its normal position, slowly withdrawn to distal esophagus. No polyps, masses or ulcerations. Biopsy of the GE junction was obtained. No polyps, masses or ulcerations. Scope was slowly retracted back until completely removed. Digital rectal exam was performed. No palpable polyps, masses or ulcerations. Scope was inserted in the rectum and advanced all the way to cecum with minimal difficulty. Prep was adequate with irrigation and suction. Scope was then slowly retracted back. No polyps, masses or ulcerations within the cecum, ascending, transverse, descending and sigmoid colon. Minimal amount of diverticulosis in the sigmoid. Once in the rectum, scope was retroflexed noting no other pathology. Scope was returned to its normal position, slowly withdrawn until completely removed. The patient tolerated procedure well without any complications. She was taken to recovery room in stable condition. RECOMMENDATIONS: The patient will need repeat colonoscopy in 10 years unless family history of colon cancer, which would then be 5 years. Any issues before then be seen at that time for reevaluation. The patient will be started on Protonix 40 mg daily. We will see if this improves any of her symptoms. Await biopsy results. The patient will follow up in 2 to 3 weeks. Job ID: [id number] DocumentID: [id number] Dictated Date: 10/31/2021 14:05:22 Joiner Date: 10/31/2021 22:16:12 Dictated By: DO MITA SANCHEZ
== END 2021-10-31 14:32 | disposition home or self-care (01) ==
LOC: ENDO 12:11
PROVIDERS: ATTEND Surgery
DX: K29.70 Gastritis, unspecified, without bleeding (principal); K57.30 Diverticulosis of large intestine without perforation or abscess without bleeding; K90.0 Celiac disease; R63.4 Abnormal weight loss; D64.9 Anemia, unspecified

== ENCOUNTER → 2022-04-13 | Outpatient (CLI) | payer BC ==
[~2022-04-13] MED LIST changes: +PANT40TA2 PO
--- NOTE | 2022-04-13 12:34 | Diagnostic Imaging Report ---
INDICATION: Routine screening. Comparison is made with prior mammogram 01/31/2021 and 12/11/2019. 2-D and 3-D bilateral screening mammography was performed with CAD. CAD is utilized. The current study was also evaluated with a Computer Aided Detection (CAD) system. Both breasts show marked parenchymal heterogeneity and increased density, limiting the sensitivity of mammography. The parenchymal pattern is stable. No mass or malignant-appearing microcalcifications are seen. Axillae are unremarkable. IMPRESSION: BI-RADS Category 1 No mammographic features suspicious for malignancy are identified. ACR BI-RADS Category 1: Negative. Result letter will be mailed to the patient. Note: At least 10% of breast cancer is not imaged by mammography. Dictated by: Dictated on workstation # [id number]
== END ==
LOC: RAD 08:09
PROVIDERS: ATTEND Internal Medicine
DX: Z12.31 Encounter for screening mammogram for malignant neoplasm of breast (principal)
CPT/HCPCS: 77063; 77067

== ENCOUNTER → 2022-11-02 | Outpatient (CLI) | payer BC ==
[~2022-11-02] MED LIST changes: +GADOTERATE 0.5 MMOL/ML (CLARISCAN) 15 ML VIAL IV ONE
--- NOTE | 2022-11-02 13:47 | Diagnostic Imaging Report ---
CLINICAL INDICATIONS: Patient with pituitary tumor. No complaints. Recheck. EXAM: MRI of the brain and pituitary using pituitary protocol performed without and with 12 mL of Clariscan IV gadolinium. Sequences include sagittal T1, axial flair, axial T1, axial DWI, axial ADC map, coronal T1 thin, coronal T1 fat sat thin, sagittal T1 thin, coronal T2 fat-sat thin, axial T1 post contrast whole brain,, sagittal T1 post IV contrast, and coronal T1 fat-sat post IV contrast, coronal dynamic post IV gadolinium through the sella, coronal T1 post IV gadolinium thin fat sat, and sagittal T1 post gadolinium thin. COMPARISON: MRI of the brain/pituitary with and without contrast dated 08/22/2020. FINDINGS: SELLA / SUPRA SELLA REGIONS: The previously seen 5 mm hypoenhancing nodular area in the left sella is not visualized on this exam and may be resolved or less conspicuous. The remainder of the sella and suprasellar regions have normal anatomic appearance. There is homogenous enhancement of the pituitary gland with no mass lesions. The infundibulum is seen midline with normal appearance. The visualized portions of the optic nerves and pathways are unremarkable. ORBITS/ GLOBES: Visualized portions are unremarkable. CAVERNOUS SINUS/ MECKEL'S CAVE: Unremarkable. BRAIN/ INTRACRANIAL STRUCTURES: Unremarkable. SINUSES: There is mild mucosal thickening involving both maxillary sinuses, ethmoid sinus and sphenoid sinus. CRANIUM/ EXTRACRANIAL SOFT TISSUE: Unremarkable. IMPRESSION: 1: The previously seen hypoenhancing area involving the left sella is not visualized on this exam and may have resolved and/or be less conspicuous. 2: The remainder of the sellar and suprasellar regions are unremarkable. 3: The brain parenchyma is unremarkable. 4: Mild paranasal sinus disease. Dictated by: Dictated on workstation # [id number]
== END ==
LOC: RAD 10:15
PROVIDERS: ATTEND Internal Medicine Endocrinology, Diabetes & Metabolism
DX: J32.8 Other chronic sinusitis (principal); D35.2 Benign neoplasm of pituitary gland; R21 Rash and other nonspecific skin eruption; R63.5 Abnormal weight gain
CPT/HCPCS: 70553

== ENCOUNTER 2022-12-24 17:29 | Observation (INO) | payer BC ==
[~2022-12-24] VITALS: Ht 165 cm; Wt 81.6 kg
[~2022-12-24 17:29] MED LIST changes: -GADOTERATE 0.5 MMOL/ML (CLARISCAN) 15 ML VIAL IV ONE
[2022-12-24] MEDS ORDERED: MELATONIN 3 MG TABLET PO PRN (18:00)
[2022-12-24] MEDS ORDERED: ACETAMINOPHEN 325 MG TABLET PO PRN (18:00)
[2022-12-24] MEDS ORDERED: ONDANSETRON 4 MG ORAL DISSOLVE TABLET PO PRN (18:00)
[2022-12-24] MEDS ORDERED: ANTACID SUSPENSION 30 ML UDC PO PRN (18:00)
[2022-12-24] MEDS ORDERED: NS IV 1000 ML 1,000 ML IV SCH (18:00)
[2022-12-24] MEDS ORDERED: diphenhydrAMINE INJ 50 MG/ML VIAL IVP PRN (18:00)
[2022-12-24] MEDS ORDERED: LACTULOSE SYRUP 10GM/15ML 30ML UDC PO PRN (18:00)
[2022-12-24] MEDS ORDERED: MILK OF MAGNESIA 400 MG/5 ML 30 ML UDC PO PRN (18:00)
[2022-12-24] MEDS ORDERED: HYDROmorphone INJECTION 2 MG/ML VIAL IV PRN (18:00)
[2022-12-24] MEDS ORDERED: diphenhydrAMINE 25 MG TABLET PO PRN (18:00)
[2022-12-24] MEDS ORDERED: oxyCODONE IMMEDIATE RELEASE 5 MG TABLET PO PRN (18:00)
[2022-12-24] MEDS ORDERED: CALCIUM CARBONATE 500 MG CHEW TABLET PO PRN (18:00)
[2022-12-24] MEDS ORDERED: ONDANSETRON INJECTION 4 MG/2 ML (SDV) IV PRN (18:00)
[2022-12-24] MEDS ORDERED: BISACODYL 10 MG SUPPOSITORY PR PRN (18:00)
[2022-12-24 18:15] VITALS: BP 111/77
[2022-12-24] MEDS: NS IV 1000 ML 1,000 ML IV SCH (18:22)
[2022-12-24 18:36] LABS: BASOPHILS # (AUTO) 0.1 10^3/uL (0.0-0.1); BASOPHILS % (AUTO) 1 % (0-10); EOSINOPHILS # (AUTO) 0.3 10^3/uL (0.0-0.3); EOSINOPHILS % (AUTO) 5 % (0-10); HEMATOCRIT 47 % (35-52); LYMPHOCYTES # (AUTO) 1.7 10^3/uL (1.0-4.0); LYMPHOCYTES % (AUTO) 27 % (12-44); MEAN CORPUSCULAR HEMOGLOBIN 31 pg (25-34); MEAN CORPUSCULAR HGB CONC 34 g/dL (32-36); MEAN CORPUSCULAR VOLUME 90 fL (80-99); MEAN PLATELET VOLUME 9.8 fL (9.0-12.2); MONOCYTES # (AUTO) 0.6 10^3/uL (0.0-1.0); MONOCYTES % (AUTO) 9 % (0-12); NEUTROPHILS # (AUTO) 3.6 10^3/uL (1.8-7.8); NEUTROPHILS % (AUTO) 58 % (42-75); PLATELET COUNT 311 10^3/uL (130-400); WHITE BLOOD COUNT 6.2 10^3/uL (4.3-11.0)
[2022-12-24] MEDS ORDERED: SEMA1PEN3 SQ (18:40)
[2022-12-24 19:00] LABS: ALBUMIN 4.5 GM/DL (3.2-4.5)
[2022-12-24 19:01] LABS: POTASSIUM 3.7 MMOL/L (3.6-5.0)
[2022-12-24 19:02] LABS: CALCIUM 9.4 MG/DL (8.5-10.1)
[2022-12-24 19:03] LABS: TOTAL PROTEIN 7.4 GM/DL (6.4-8.2)
[2022-12-24 19:05] LABS: BILIRUBIN,TOTAL 0.6 MG/DL (0.1-1.0)
[2022-12-24 19:07] LABS: CREATININE SERUM 0.88 MG/DL (0.60-1.30)
[2022-12-24 19:08] VITALS: BP 110/68
[2022-12-24] MEDS ORDERED: HOLD METFORMIN - RECEIVED CONTRAST 20 ML VIAL IV SCH (20:00)
[2022-12-24] MEDS ORDERED: IOHEXOL 350 MG/ML 100 ML (OMNIPAQUE 350) VIAL IV ONE (20:00)
[2022-12-24] MEDS ORDERED: NS 100 ML (IVPB) BAG IV ONE (20:00)
[2022-12-24] MEDS: PANTOPRAZOLE INJECTION 200 MG in NS (IVPB) 100 ML 100 ML IV SCH (20:18)
[2022-12-24] MEDS: SENNOSIDES 8.6 MG TABLET PO SCH (20:19)
[2022-12-24] MEDS: DOCUSATE SODIUM 100 MG CAPSULE PO SCH (20:19)
--- NOTE | 2022-12-24 21:25 | Diagnostic Imaging Report ---
PROCEDURE: CT abdomen and pelvis with contrast. TECHNIQUE: Multiple contiguous axial images were obtained through the abdomen and pelvis after administration of intravenous contrast. Auto Exposure Controls were utilized during the CT exam to meet ALARA standards for radiation dose reduction. All CT scans use one or more of the following dose optimizing techniques: automated exposure control, MA and/or KvP adjustment based on patient size and exam type or iterative reconstruction. INDICATION: Right upper quadrant pain and discomfort. EXAMINATION: CT abdomen and pelvis with contrast 12/24/2022 FINDINGS: Lung bases demonstrate atelectasis. Liver and spleen unremarkable. Gallbladder normal. Adrenal glands normal, pancreas unremarkable. There are likely bilateral extrarenal pelves. There are findings of constipation. Appendix not visualized but no focal inflammation noted in the right lower quadrant. No inflammatory changes seen about the loops of bowel. Fluid in the endometrium likely physiologic. There is no acute osseous abnormality. IMPRESSION: 1. Incidental findings with no acute process. 2. Findings of constipation noted. Dictated by: Dictated on workstation # [id number]
[2022-12-24 21:30] VITALS: BP 110/68
[2022-12-24] MEDS ORDERED: RT-ALBUTEROL SULF 2.5 MG/3 ML PRE-MIX VIAL INH PRN (21:45)
[2022-12-24 22:22] LABS: BILIRUBIN,URINE NEGATIVE (NEGATIVE); CLARITY,URINE CLEAR; COLOR,URINE YELLOW; GLUCOSE, URINE (UA) NEGATIVE (NEGATIVE); KETONES,URINE 1+ (NEGATIVE); LEUKOCYTE ESTERASE ,URINE NEGATIVE (NEGATIVE); NITRITE,URINE NEGATIVE (NEGATIVE); PH,URINE 5.5 (5-9); PROTEIN,URINE NEGATIVE (NEGATIVE)
[2022-12-24 22:31] LABS: BACTERIA,URINE TRACE /HPF; RBC,URINE 0-2 /HPF; SQUAMOUS EPITHELIAL CELL,UR 25-50 /HPF; WBC,URINE 0-2 /HPF
[2022-12-24 23:07] VITALS: BP 109/63
[2022-12-24] MEDS: MONTELUKAST 10 MG TABLET PO SCH (23:09)
[2022-12-25 03:17] VITALS: BP 100/66
[2022-12-25] MEDS: NS IV 1000 ML 1,000 ML IV SCH ×3 (03:37→21:12)
[2022-12-25 04:59] LABS: BASOPHILS # (AUTO) 0.1 10^3/uL (0.0-0.1); BASOPHILS % (AUTO) 2 % (0-10); EOSINOPHILS # (AUTO) 0.3 10^3/uL (0.0-0.3); EOSINOPHILS % (AUTO) 6 % (0-10); HEMATOCRIT 41 % (35-52); HEMOGLOBIN 13.8 g/dL (11.5-16.0); LYMPHOCYTES # (AUTO) 1.4 10^3/uL (1.0-4.0); LYMPHOCYTES % (AUTO) 29 % (12-44); MEAN CORPUSCULAR HEMOGLOBIN 31 pg (25-34); MEAN CORPUSCULAR HGB CONC 34 g/dL (32-36); MEAN CORPUSCULAR VOLUME 91 fL (80-99); MEAN PLATELET VOLUME 10.2 fL (9.0-12.2); MONOCYTES # (AUTO) 0.5 10^3/uL (0.0-1.0); MONOCYTES % (AUTO) 10 % (0-12); NEUTROPHILS # (AUTO) 2.6 10^3/uL (1.8-7.8); NEUTROPHILS % (AUTO) 53 % (42-75); PLATELET COUNT 265 10^3/uL (130-400); WHITE BLOOD COUNT 4.9 10^3/uL (4.3-11.0)
[2022-12-25 05:14] LABS: ALBUMIN 3.5 GM/DL (3.2-4.5)
[2022-12-25 05:16] LABS: CALCIUM 8.4 MG/DL (8.5-10.1)
[2022-12-25 05:17] LABS: TOTAL PROTEIN 5.5 GM/DL (6.4-8.2)
[2022-12-25 05:20] LABS: CREATININE SERUM 0.86 MG/DL (0.60-1.30)
[2022-12-25 08:04] VITALS: BP 111/65
[2022-12-25] MEDS: FLUTICASONE/VILANTEROL 100/25 MCG (7 DOSES) IH SCH (09:17)
--- NOTE | 2022-12-25 09:17 | Diagnostic Imaging Report ---
PROCEDURE: US Abdomen, limited. TECHNIQUE: Multiple realtime grayscale images were obtained over the abdomen in various projections. INDICATION: Right upper quadrant abdominal pain Liver parenchyma is homogeneous with normal echotexture. Portal vein is patent with hepatopetal flow. Gallbladder is clear with no stones or wall thickening. The common duct is not dilated. Pancreas is normal. Aorta is not dilated. IVC is patent. Right kidney measures 10.3 cm in length and there is no ascites. IMPRESSION: Unremarkable right upper quadrant ultrasound. Dictated by: Dictated on workstation # [id number]
[2022-12-25] MEDS: DOCUSATE SODIUM 100 MG CAPSULE PO SCH ×2 (09:18→19:15)
[2022-12-25] MEDS: SENNOSIDES 8.6 MG TABLET PO SCH ×2 (09:18→19:15)
[2022-12-25] MEDS: NORETHINDRONE PO SCH (09:18)
[2022-12-25] MEDS: TRIAMTERENE/HCTZ 75-50 (MAXZIDE,DYAZIDE) TABLET PO SCH (09:19)
[2022-12-25] MEDS: DULoxetine 30 MG CAPSULE PO SCH (09:19)
[2022-12-25] MEDS ORDERED: CABE0.5T PO (10:26)
[2022-12-25] MEDS ORDERED: NORE0.3520 PO (10:26)
[2022-12-25] MEDS ORDERED: SEMA2PEN SQ (10:26)
[2022-12-25] MEDS ORDERED: ZOLM5TAB PO (10:26)
[2022-12-25] MEDS ORDERED: PANT40TA52 PO (10:26)
[2022-12-25] MEDS ORDERED: BUDE10.2 INH (10:26)
[2022-12-25] MEDS ORDERED: RT-ALBUINH INH (10:27)
--- NOTE | 2022-12-25 10:56 | Short Stay Summary ---
CADE FLORENTINO 12/25/22 1056: History of Present Illness History of Present Illness Reason for visit/HPI Alena Bruce in a 47yo F with past medical history of migraines, prolactinoma, asthma, and HTN who presents as a direct admission from Dr Quiroga's clinic on 12/25. Chief complaint is RUQ abdominal pain and nausea. Her RUQ pain began mid day 12/22 after she ate a hamburger for lunch. The pain is described as crampy and intermittent. She has never had pain like this before. Her pain does not radiate to other areas of her abdomen. The pain has mostly subsided in regards to severity and frequency but she still notices it. Her nausea is improved by the time of admission but she does report emesis the night her symptoms started. Her appetite is diminished. Denies history of any abdominal surgery. She denies fever/chills. Has had regular BMs and voiding or urine. She is in the process of changing endocrinologists in regards to managing her prolactinoma but reports her last scan showed significant shrinkage of her tumor on cabergoline. Date of Admission Dec 24, 2022 at 18:07 Date of Discharge Time Seen by Provider: 09:45 Attending Physician Hilaria Quiroga DO Admitting Physician Admitting Physician: Hilaria Quiroga DO Attending Physician: Hilaria Quiroga DO Consult Allergies and Home Medications Allergies Coded Allergies: No Known Drug Allergies (Unverified , 03/24/18) Patient Home Medication List Home Medication List Reviewed: Yes Albuterol Sulfate (Ventolin Hfa) 1 Puff Puff, 2 PUFF INH Q4H PRN for SHORTNESS OF BREATH, (Reported) Entered as Reported by: MARIA ESTHER MCKEON on 12/25/22 1027 Last Action: Reviewed Budesonide/Formoterol Fumarate (Symbicort 160-4.5 Mcg Inhaler) 160 Mcg-4.5 Mcg/Actuation Hfa.aer.ad, 2 PUFF INH BID, (Reported) Entered as Reported by: MARIA ESTHER MCKEON on 12/25/22 1026 Last Action: Reviewed Cabergoline (Cabergoline) 0.5 Mg Tablet, 0.25 MG PO SUN, (Reported) Entered as Reported by: MARIA ESTHER MCKEON on 12/25/22 1026 Last Action: Reviewed Cetirizine HCl (Cetirizine HCl) 10 Mg Tablet, 10 MG PO DAILY, (Reported) Entered as Reported by: SHELBY COOK on 03/25/18842 Last Action: Reviewed Duloxetine HCl (Cymbalta) 60 Mg Capsule.dr, 60 MG PO DAILY, (Reported) Entered as Reported by: BEILNDA ZARAGOZA on 10/20/211314 Last Action: Reviewed Montelukast Sodium (Montelukast Sodium) 10 Mg Tablet, 10 MG PO HS, (Reported) Entered as Reported by: SHELBY COOK on 03/25/18842 Last Action: Reviewed Norethindrone (Norethindrone) 0.35 Mg Tablet, 0.35 MG PO DAILY, (Reported) Entered as Reported by: MARIA ESTHER MCKEON on 12/25/22 102 Last Action: Reviewed Pantoprazole Sodium (Pantoprazole Sodium) 40 Mg Tablet.dr, 40 MG PO DAILY, (Reported) Entered as Reported by: MARIA ESTHER MCKEON on 12/25/22 102 Last Action: Reviewed Semaglutide (Ozempic) 2 Mg/0.75 Ml (8 Mg/3 Ml) Pen.injctr, 1 MG SQ THUR, (Reported) Entered as Reported by: MARIA ESTHER MCKEON on 12/25/22 102 Last Action: Reviewed Triamterene/Hydrochlorothiazid (Triamterene-Hctz 37.5-25 mg Tb) 37.5 Mg-25 Mg Tablet, 1 EA PO DAILY, (Reported) Entered as Reported by: SHELBY COOK on 03/25/18842 Last Action: Reviewed Zolmitriptan (Zolmitriptan Odt) 5 Mg Tab.rapdis, 5 MG PO DAILY PRN for MIGRAINE, (Reported) Entered as Reported by: MARIA ESTHER MCKEON on 12/25/22 102 Last Action: Reviewed Discontinued Medications Budesonide/Formoterol Fumarate (Symbicort 80-4.5 Mcg Inhaler) 80 Mcg-4.5 Mcg/Actuation Hfa.aer.ad, 2 PUFF IH BID, (Reported) Discontinued Reason: No Longer Taking Entered as Reported by: BELINDA ZARAGOZA on 10/20/211314 Last Action: Discontinued Norethindrone (Norlyda) 0.35 Mg Tablet, 1 TAB PO DAILY, (Reported) Discontinued Reason: Duplicate Order Entered as Reported by: SHELBY COOK on 03/25/18842 Last Action: Discontinued Pantoprazole Sodium (Protonix) 40 Mg Tablet.dr, 40 MG PO DAILY Discontinued Reason: No Longer Taking Prescribed by: BISMARK MULLER on 10/31/21 1400 Last Action: Discontinued Semaglutide (Ozempic) 1 Mg/0.75 Ml (4 Mg/3 Ml) Pen.injctr, 1 MG SQ WEEK, (Reported) Discontinued Reason: Duplicate Order Entered as Reported by: AYLA LUCERO on 12/24/22 1840 Last Action: Discontinued Zolmitriptan (Zolmitriptan) 5 Mg Tablet, 5 MG PO UD PRN for MIGRAINE, (Reported) Discontinued Reason: Duplicate Order Entered as Reported by: SHELBY COOK on 03/25/18842 Last Action: Discontinued Past Hicdndz-Wqvgfq-Qjkkuw Hx Patient Social History Alcohol Beverage of Choice: Wine Smoking Status: Never a Smoker 2nd Hand Smoke Exposure: No Recent Hopitalizations: No Alcohol Use?: Yes (occasional) Pt feels they are or have been: No Immunizations Up To Date Pediatric: No Date of Influenza Vaccine: Mar 03, 2021 Seasonal Allergies Seasonal Allergies: Yes Surgeries Yes Adenoidectomy, Tonsillectomy Respiratory Yes (asthma) Asthma Currently Using CPAP: No Currently Using BIPAP: No Cardiovascular No Neurological Yes (migraines 15 times a month prior to Botox shots started in October 2017) Headaches /Migraines Reproductive System Hx Reproductive Disorders: No Genitourinary No Gastrointestinal No Musculoskeletal No Endocrine History of Endocrine Disorders: Yes Endocrine Disorders: Pituitary Disease (pituitary prolactinoma) HEENT History of HEENT Disorders: No Cancer No Psychosocial History of Psychiatric Problem: No Integumentary History of Skin or Integumenta: No Blood Transfusions History of Blood Disorders: No Family Medical History Significant Family History: Heart Disease, Hypertension Family Hx: Colonic polyps 19 FATHER DVT 19 FATHER FH: CABG (coronary artery bypass surgery) Hypercholesterolemia 19 MOTHER Hypertension 19 MOTHER MATERNAL GRANDMOTHER Pituitary disease 19 FATHER Review of Systems Constitutional: No chills, No diaphoresis, No fever EENTM: No hearing loss, No vision loss Respiratory: No cough, No short of breath, No wheezing Cardiovascular: No chest pain, No palpitations Gastrointestinal: abdominal pain (RUQ); No diarrhea; loss of appetite; No nausea, No vomiting Genitourinary: No dysuria, No hematuria Psychiatric/Neurological: Denies Headache, Denies Weakness Physical Exam Vital Signs Vital Signs - First Documented 12/24/22 18:15 Temp 36.2 Pulse 87 Resp 18 B/P (MAP) 111/77 (88) Pulse Ox 98 O2 Delivery Room Air Capillary Refill : Height, Weight, BMI Height: 5'5.50" Weight: 141lbs. 4.0oz. 64.120046tp; 29.97 BMI Method:Stated General Appearance: No Apparent Distress, WD/WN HEENT: PERRL/EOMI, Moist Mucous Membranes Neck: Supple; No JVD Respiratory: Lungs Clear, Normal Breath Sounds, No Accessory Muscle Use, No Respiratory Distress Cardiovascular: Regular Rate, Rhythm, Normal Peripheral Pulses Gastrointestinal: Soft; No Distended, No Guarding; Tenderness (RUQ) Rectal: Deferred Extremity: Non Tender, No Pedal Edema Neurologic/Psychiatric: Alert, Oriented x3, Normal Mood/Affect Skin: Normal Color, Warm/Dry Clinical Quality Measures DVT/VTE Risk/Contraindication: Contraindications-Pharm: Other *list below* Other: possible OR Short Stay Diagnosis Discharge Diagnosis-Short Stay Admission Diagnosis: RUQ abdominal pain Nausea Conclusion Labs Laboratory Tests 12/24/22 18:28: White Blood Count 6.2, Red Blood Count 5.25H, Hemoglobin 16.0, Hematocrit 47, Mean Corpuscular Volume 90, Mean Corpuscular Hemoglobin 31, Mean Corpuscular Hemoglobin Concent 34, Red Cell Distribution Width 11.8, Platelet Count 311, Mean Platelet Volume 9.8, Immature Granulocyte % (Auto) 0, Neutrophils (%) (Auto ) 58, Lymphocytes (%) (Auto) 27, Monocytes (%) (Auto) 9, Eosinophils (%) (Auto) 5, Basophils (%) (Auto) 1, Neutrophils # (Auto) 3.6, Lymphocytes # (Auto) 1.7, Monocytes # (Auto) 0.6, Eosinophils # (Auto) 0.3, Basophils # (Auto) 0.1, Immature Granulocyte # (Auto) 0.0, Sodium Level 138, Potassium Level 3.7, Chloride Level 104, Carbon Dioxide Level 21, Anion Gap 13, Blood Urea Nitrogen 13, Creatinine 0.88, Estimat Glomerular Filtration Rate 82, BUN/Creatinine Ratio 15, Glucose Level 90, Lactic Acid Level 0.95, Calcium Level 9.4, Corrected Calcium 9.0, Total Bilirubin 0.6, Aspartate Amino Transf (AST/SGOT) 13, Alanine Aminotransferase (ALT/SGPT) 8, Alkaline Phosphatase 54, Total Protein 7.4, Albumin 4.5, Amylase Level 66, Lipase 24, Human Chorionic Gonadotropin, Quant 9H , Serum Test, Qualitative POSITIVE 12/24/22 21:50: Urine Color YELLOW, Urine Clarity CLEAR, Urine pH 5.5, Urine Specific [place] 1.010L, Urine Protein NEGATIVE, Urine Glucose (UA) NEGATIVE, Urine Ketones 1+H, Urine Nitrite NEGATIVE, Urine Bilirubin NEGATIVE, Urine Urobilinogen 0.2, Urine Leukocyte Esterase NEGATIVE, Urine RBC (Auto) NEGATIVE, Urine RBC 0-2, Urine WBC 0-2, Urine Squamous Epithelial Cells 25-50H, Urine Crystals NONE, Urine Bacteria TRACE, Urine Casts NONE, Urine Mucus SMALLH, Urine Culture Indicated NO 12/25/22 04:48: White Blood Count 4.9, Red Blood Count 4.49, Hemoglobin 13.8, Hematocrit 41, Mean Corpuscular Volume 91, Mean Corpuscular Hemoglobin 31, Mean Corpuscular Hemoglobin Concent 34, Red Cell Distribution Width 11.8, Platelet Count 265, Mean Platelet Volume 10.2, Immature Granulocyte % (Auto) 0, Neutrophils (%) (Auto) 53, Lymphocytes (%) (Auto) 29, Monocytes (%) (Auto) 10, Eosinophils (%) (Auto) 6, Basophils (%) (Auto) 2, Neutrophils # (Auto) 2.6, Lymphocytes # (Auto) 1.4, Monocytes # (Auto) 0.5, Eosinophils # (Auto) 0.3, Basophils # (Auto) 0.1, Immature Granulocyte # (Auto) 0.0, Sodium Level 141, Potassium Level 4.0, Chloride Level 111H, Carbon Dioxide Level 23, Anion Gap 7, Blood Urea Nitrogen 9, Creatinine 0.86, Estimat Glomerular Filtration Rate 84, BUN/Creatinine Ratio 10, Glucose Level 86, Calcium Level 8.4L, Corrected Calcium 8.8, Total Bilirubin 1.0, Aspartate Amino Transf (AST/SGOT) 10, Alanine Aminotransferase (ALT/SGPT) 7, Alkaline Phosphatase 39L, Total Protein 5.5L, Albumin 3.5 Conclusion/Plan RUQ abdominal pain Nausea RUQ ultrasound revealed normal appearance of liver and gallbladder, no distention, wall thickening/edema, or stones noted CT ab/pelv noted some dilated large bowel consistent with constipation. Normal appearance of liver, gallbladder, and pancreas Lipase and amylase within normal limits Qualitative bhcg positive with quantitative level of 9, this is likely related to pituitary adenoma HIDA ordered for today to assess for obstructive pathology in biliary tree vs biliary dyskinesia General surgery consulted appreciate recs Continue zofran 4mg q6hr prn Pituitary adenoma Takes cabergoline 0.25mg every saturday Follows with endocrine Hx of asthma HTN Depression resume home meds Diet- clear liquid DVT ppx- SCDs Code status- full HILARIA QUIROGA DO 12/26/22 0532: Allergies and Home Medications Allergies Coded Allergies: No Known Drug Allergies (Unverified , 03/24/18) Patient Home Medication List Albuterol Sulfate (Ventolin Hfa) 1 Puff Puff, 2 PUFF INH Q4H PRN for SHORTNESS OF BREATH, (Reported) Entered as Reported by: MARIA ESTHER MCKEON on 12/25/22 1027 Last Action: Reviewed Budesonide/Formoterol Fumarate (Symbicort 160-4.5 Mcg Inhaler) 160 Mcg-4.5 Mcg/Actuation Hfa.aer.ad, 2 PUFF INH BID, (Reported) Entered as Reported by: MARIA ESTHER MCKEON on 12/25/22 1026 Last Action: Reviewed Cabergoline (Cabergoline) 0.5 Mg Tablet, 0.25 MG PO SUN, (Reported) Entered as Reported by: MARIA ESTHER MCKEON on 12/25/22 1026 Last Action: Reviewed Cetirizine HCl (Cetirizine HCl) 10 Mg Tablet, 10 MG PO DAILY, (Reported) Entered as Reported by: SHELBY COOK on 03/25/18 0843 Last Action: Reviewed Duloxetine HCl (Cymbalta) 60 Mg Capsule.dr, 60 MG PO DAILY, (Reported) Entered as Reported by: BELINDA ZARAGOZA on 10/20/21 1315 Last Action: Reviewed Montelukast Sodium (Montelukast Sodium) 10 Mg Tablet, 10 MG PO HS, (Reported) Entered as Reported by: SHELBY COOK on 03/25/18 0843 Last Action: Reviewed Norethindrone (Norethindrone) 0.35 Mg Tablet, 0.35 MG PO DAILY, (Reported) Entered as Reported by: MARIA ESTHER MCKEON on 12/25/22 1026 Last Action: Reviewed Pantoprazole Sodium (Pantoprazole Sodium) 40 Mg Tablet.dr, 40 MG PO DAILY, (Reported) Entered as Reported by: MARIA ESTHER MCKEON on 12/25/22 1026 Last Action: Reviewed Semaglutide (Ozempic) 2 Mg/0.75 Ml (8 Mg/3 Ml) Pen.injctr, 1 MG SQ THUR, (Reported) Entered as Reported by: MARIA ESTHER MCKEON on 12/25/22 1026 Last Action: Reviewed Triamterene/Hydrochlorothiazid (Triamterene-Hctz 37.5-25 mg Tb) 37.5 Mg-25 Mg Tablet, 1 EA PO DAILY, (Reported) Entered as Reported by: SHELBY COOK on 03/25/18 0843 Last Action: Reviewed Zolmitriptan (Zolmitriptan Odt) 5 Mg Tab.rapdis, 5 MG PO DAILY PRN for MIGRAINE, (Reported) Entered as Reported by: MARIA ESTHER MCKEON on 12/25/22 1026 Last Action: Reviewed Discontinued Medications Budesonide/Formoterol Fumarate (Symbicort 80-4.5 Mcg Inhaler) 80 Mcg-4.5 Mcg/Actuation Hfa.aer.ad, 2 PUFF IH BID, (Reported) Discontinued Reason: No Longer Taking Entered as Reported by: BELINDA ZARAGOZA on 10/20/21 1315 Last Action: Discontinued Norethindrone (Norlyda) 0.35 Mg Tablet, 1 TAB PO DAILY, (Reported) Discontinued Reason: Duplicate Order Entered as Reported by: SHELBY COOK on 03/25/18 0843 Last Action: Discontinued Pantoprazole Sodium (Protonix) 40 Mg Tablet., 40 MG PO DAILY Discontinued Reason: No Longer Taking Prescribed by: BISMARK MULLER on 10/31/21 1400 Last Action: Discontinued Semaglutide (Ozempic) 1 Mg/0.75 Ml (4 Mg/3 Ml) Pen.injctr, 1 MG SQ WEEK, (Reported) Discontinued Reason: Duplicate Order Entered as Reported by: AYLA LUCERO on 12/24/22 1840 Last Action: Discontinued Zolmitriptan (Zolmitriptan) 5 Mg Tablet, 5 MG PO UD PRN for MIGRAINE, (Reported) Discontinued Reason: Duplicate Order Entered as Reported by: SHELBY COOK on 03/25/18 0886 Last Action: Discontinued Past Tpckjms-Ylzpvd-Myubgb Hx Family Medical History Family Hx: Colonic polyps 19 FATHER DVT 19 FATHER FH: CABG (coronary artery bypass surgery) Hypercholesterolemia 19 MOTHER Hypertension 19 MOTHER MATERNAL GRANDMOTHER Pituitary disease 19 FATHER Short Stay Diagnosis Discharge Diagnosis-Short Stay Final Discharge Diagnosis: acute abdominal pain False slight elevated HCG due to pituitary tumor prolactinoma Conclusion Conclusion/Plan GB source Supervisory-Addendum Brief Verification & Attestation Participated in pt care: history, MDM, physical Personally performed: exam, history, MDM, supervision of care Care discussed with: Medical Student Procedures: n/a Results interpretation: Verified all documentation Verification and Attestation of Medical Student E/M Service A medical student performed and documented this service in my presence. I reviewed and verified all information documented by the medical student and made modifications to such information, when appropriate. I personally performed the physical exam and medical decision making. Hilaria Quiroga, Dec 26, 2022,05:32 CADE FLORENTINO Dec 25, 2022 10:56 HILARIA QUIROGA DO Dec 26, 2022 05:32
[2022-12-25 11:45] VITALS: BP 108/63
--- NOTE | 2022-12-25 15:24 | Diagnostic Imaging Report ---
RADIOPHARMACEUTICAL: 5.48mCi Tc-99m Choletec IV INDICATION: Acute abdominal pain COMPARISON: Ultrasound dated 12/25/2022 TECHNIQUE: Anterior dynamic imaging for 1 hour. Additional 60 minutes of imaging was performed after patient ingested an 8 ounce can of Ensure. FINDINGS: There is homogenous uptake throughout the liver. The gallbladder is visualized at 30minutes and small bowel at 20minutes. After CCK analog administration, there is abnormal contraction of the gallbladder with borderline abnormally low calculated GBEF at 30%. IMPRESSION: 1. No evidence of acute cholecystitis or common duct obstruction. 2. Borderline abnormally low GBEF of 30%. This could relate to underlying chronic acalculous cholecystitis versus biliary dyskinesia. Some medications can also result in decreased gallbladder ejection fraction. Dictated by: Dictated on workstation # [id number]
--- NOTE | 2022-12-25 16:01 | Consultation - Surgery ---
History of Present Illness History of Present Illness Patient Consulted On(mathew/time) 12/25/22 15:51 Date Seen by Provider: Dec 25, 2022 Time Seen by Provider: 15:33 History of Present Illness Consult requested by Dr. Gallego for ruq abdominal pain. Patient is a 47 year old female who Saturday evening was eating cheeseburger and began having ruq abodminal pain. Continued on. Has had some discomfort previously. Continued having pain over the weekend and saw Dr. Gallego on Saturday. Nothing really made pain better. Food made worse. Had ct scan consistent with constipation. U/s no acute abnormality. Hida scan with EF of 30%. Allergies and Home Medications Allergies Coded Allergies: No Known Drug Allergies (Unverified , 03/24/18) Patient Home Medication List Home Medication List Reviewed: Yes Albuterol Sulfate (Ventolin Hfa) 1 Puff Puff, 2 PUFF INH Q4H PRN for SHORTNESS OF BREATH, (Reported) Entered as Reported by: MARIA ESTHER MCKEON on 12/25/22 1027 Last Action: Reviewed Budesonide/Formoterol Fumarate (Symbicort 160-4.5 Mcg Inhaler) 160 Mcg-4.5 Mcg/Actuation Hfa.aer.ad, 2 PUFF INH BID, (Reported) Entered as Reported by: MARIA ESTHER MCKEON on 12/25/22 1026 Last Action: Reviewed Cabergoline (Cabergoline) 0.5 Mg Tablet, 0.25 MG PO SUN, (Reported) Entered as Reported by: MARIA ESTHER MCKEON on 12/25/22 1026 Last Action: Reviewed Cetirizine HCl (Cetirizine HCl) 10 Mg Tablet, 10 MG PO DAILY, (Reported) Entered as Reported by: SHELBY COOK on 03/25/1843 Last Action: Reviewed Duloxetine HCl (Cymbalta) 60 Mg Capsule.dr, 60 MG PO DAILY, (Reported) Entered as Reported by: BELINDA ZARAGOZA on 10/20/21 1315 Last Action: Reviewed Montelukast Sodium (Montelukast Sodium) 10 Mg Tablet, 10 MG PO HS, (Reported) Entered as Reported by: SHELBY COOK on 03/25/1843 Last Action: Reviewed Norethindrone (Norethindrone) 0.35 Mg Tablet, 0.35 MG PO DAILY, (Reported) Entered as Reported by: MARIA ESTHER MCKEON on 12/25/22 1026 Last Action: Reviewed Pantoprazole Sodium (Pantoprazole Sodium) 40 Mg Tablet.dr, 40 MG PO DAILY, (Reported) Entered as Reported by: MARIA ESTHER MCKEON on 12/25/22 1026 Last Action: Reviewed Semaglutide (Ozempic) 2 Mg/0.75 Ml (8 Mg/3 Ml) Pen.injctr, 1 MG SQ THUR, (Reported) Entered as Reported by: MARIA ESTHER MCKEON on 12/25/22 1026 Last Action: Reviewed Triamterene/Hydrochlorothiazid (Triamterene-Hctz 37.5-25 mg Tb) 37.5 Mg-25 Mg Tablet, 1 EA PO DAILY, (Reported) Entered as Reported by: SHELBY COOK on 03/25/18 0843 Last Action: Reviewed Zolmitriptan (Zolmitriptan Odt) 5 Mg Tab.rapdis, 5 MG PO DAILY PRN for MIGRAINE, (Reported) Entered as Reported by: MARIA ESTHER MCKEON on 12/25/22 1026 Last Action: Reviewed Discontinued Medications Budesonide/Formoterol Fumarate (Symbicort 80-4.5 Mcg Inhaler) 80 Mcg-4.5 Mcg/Actuation Hfa.aer.ad, 2 PUFF IH BID, (Reported) Discontinued Reason: No Longer Taking Entered as Reported by: BELINDA ZARAGOZA on 10/20/21 1315 Last Action: Discontinued Norethindrone (Norlyda) 0.35 Mg Tablet, 1 TAB PO DAILY, (Reported) Discontinued Reason: Duplicate Order Entered as Reported by: SHELBY COOK on 03/25/18 0843 Last Action: Discontinued Pantoprazole Sodium (Protonix) 40 Mg Tablet.dr, 40 MG PO DAILY Discontinued Reason: No Longer Taking Prescribed by: BISMARK MULLER on 10/31/21 1400 Last Action: Discontinued Semaglutide (Ozempic) 1 Mg/0.75 Ml (4 Mg/3 Ml) Pen.injctr, 1 MG SQ WEEK, (Reported) Discontinued Reason: Duplicate Order Entered as Reported by: AYLA LUCERO on 12/24/22 1840 Last Action: Discontinued Zolmitriptan (Zolmitriptan) 5 Mg Tablet, 5 MG PO UD PRN for MIGRAINE, (Reported) Discontinued Reason: Duplicate Order Entered as Reported by: SHELBY COOK on 03/25/18 0846 Last Action: Discontinued Past Obvgauh-Gmgxuf-Nrifpn Hx Patient Social History Smoking Status: Never a Smoker 2nd Hand Smoke Exposure: No Recent Hopitalizations: No Alcohol Use?: Yes (occasional) Immunizations Up To Date PED Vaccines UTD: No Date of Influenza Vaccine: Mar 03, 2021 Seasonal Allergies Seasonal Allergies: Yes Surgeries History of Surgeries: Yes Surgeries: Adenoidectomy, Tonsillectomy Respiratory History of Respiratory Disorde: Yes (asthma) Respiratory Disorders: Asthma Cardiovascular History of Cardiac Disorders: No Neurological History of Neurological Disord: Yes (migraines 15 times a month prior to Botox shots started in October 2017) Neurological Disorders: Headaches /Migraines Reproductive System Hx Reproductive Disorders: No Genitourinary History of Genitourinary Disor: No Gastrointestinal History of Gastrointestinal Di: No Musculoskeletal History of Musculoskeletal Dis: No Endocrine History of Endocrine Disorders: Yes Endocrine Disorders: Pituitary Disease (pituitary prolactinoma) HEENT History of HEENT Disorders: No Cancer History of Cancer: No Psychosocial History of Psychiatric Problem: No Integumentary History of Skin or Integumenta: No Blood Transfusions History of Blood Disorders: No Family Medical History Significant Family History: No Pertinent Family Hx, Heart Disease, Hypertension Family Medial History: Colonic polyps 19 FATHER DVT 19 FATHER FH: CABG (coronary artery bypass surgery) Hypercholesterolemia 19 MOTHER Hypertension 19 MOTHER MATERNAL GRANDMOTHER Pituitary disease 19 FATHER Review of Systems-General Constitutional: No chills, No diaphoresis EENTM: No blurred vision, No double vision Respiratory: No cough, No dyspnea on exertion Cardiovascular: No chest pain, No palpitations Gastrointestinal: abdominal pain (RUQ); No nausea, No vomiting Genitourinary: No decreased output, No discharge Musculoskeletal: No back pain, No joint pain Skin: No change in color, No change in hair/nails Psychiatric/Neurological: Denies Anxiety, Denies Depressed, Denies Emotional Problems All Other Systems Reviewed Negative Unless Noted: Yes (Negative excepted noted.) Physical Exam-General Problems Physical Exam Vital Signs Vital Signs - First Documented 12/24/22 18:15 Temp 36.2 Pulse 87 Resp 18 B/P (MAP) 111/77 (88) Pulse Ox 98 O2 Delivery Room Air Capillary Refill : General Appearance: WD/WN, no apparent distress HEENT: PERRL/EOMI, normal ENT inspection Neck: non-tender, supple Respiratory: chest non-tender, no respiratory distress, no accessory muscle use Cardiovascular: regular rate, rhythm, no JVD Gastrointestinal: soft, tenderness (right upper quadrant) Rectal: deferred Back: normal inspection, no CVA tenderness Extremities: non-tender, normal inspection Neurologic/Psychiatric: alert, normal mood/affect, oriented x 3 Skin: normal color, warm/dry Lymphatic: no adenopathy Data Review Labs Laboratory Tests 12/24/22 18:28: White Blood Count 6.2, Red Blood Count 5.25H, Hemoglobin 16.0, Hematocrit 47, Mean Corpuscular Volume 90, Mean Corpuscular Hemoglobin 31, Mean Corpuscular Hemoglobin Concent 34, Red Cell Distribution Width 11.8, Platelet Count 311, Mean Platelet Volume 9.8, Immature Granulocyte % (Auto) 0, Neutrophils (%) (Auto) 58, Lymphocytes (%) (Auto) 27, Monocytes (%) (Auto) 9, Eosinophils (%) (Auto) 5, Basophils (%) (Auto) 1, Neutrophils # (Auto) 3.6, Lymphocytes # (Auto) 1.7, Monocytes # (Auto) 0.6, Eosinophils # (Auto) 0.3, Basophils # (Auto) 0.1, Immature Granulocyte # (Auto) 0.0, Sodium Level 138, Potassium Level 3.7, Chloride Level 104, Carbon Dioxide Level 21, Anion Gap 13, Blood Urea Nitrogen 13, Creatinine 0.88, Estimat Glomerular Filtration Rate 82, BUN/Creatinine Ratio 15, Glucose Level 90, Lactic Acid Level 0.95, Calcium Level 9.4, Corrected Calcium 9.0, Total Bilirubin 0.6, Aspartate Amino Transf (AST/SGOT) 13, Alanine Aminotransferase (ALT/SGPT) 8, Alkaline Phosphatase 54, Total Protein 7.4, Albumin 4.5, Amylase Level 66, Lipase 24, Prolactin 31.0, Human Chorionic Gonadotropin, Quant 9H, Serum Test, Qualitative POSITIVE 12/24/22 21:50: Urine Color YELLOW, Urine Clarity CLEAR, Urine pH 5.5, Urine Specific Aurelia 1.010L, Urine Protein NEGATIVE, Urine Glucose (UA) NEGATIVE, Urine Ketones 1+H, Urine Nitrite NEGATIVE, Urine Bilirubin NEGATIVE, Urine Urobilinogen 0.2, Urine Leukocyte Esterase NEGATIVE, Urine RBC (Auto) NEGATIVE, Urine RBC 0-2, Urine WBC 0-2, Urine Squamous Epithelial Cells 25-50H, Urine Crystals NONE, Urine Bacteria TRACE, Urine Casts NONE, Urine Mucus SMALLH, Urine Culture Indicated NO 12/25/22 04:48: White Blood Count 4.9, Red Blood Count 4.49, Hemoglobin 13.8, Hematocrit 41, Mean Corpuscular Volume 91, Mean Corpuscular Hemoglobin 31, Mean Corpuscular Hemoglobin Concent 34, Red Cell Distribution Width 11.8, Platelet Count 265, Mean Platelet Volume 10.2, Immature Granulocyte % (Auto) 0, Neutrophils (%) (Auto) 53, Lymphocytes (%) (Auto) 29, Monocytes (%) (Auto) 10, Eosinophils (%) (Auto) 6, Basophils (%) (Auto) 2, Neutrophils # (Auto) 2.6, Lymphocytes # (Auto) 1.4, Monocytes # (Auto) 0.5, Eosinophils # (Auto) 0.3, Basophils # (Auto) 0.1, Immature Granulocyte # (Auto) 0.0, Sodium Level 141, Potassium Level 4.0, Chloride Level 111H, Carbon Dioxide Level 23, Anion Gap 7, Blood Urea Nitrogen 9, Creatinine 0.86, Estimat Glomerular Filtration Rate 84, BUN/Creatinine Ratio 10, Glucose Level 86, Calcium Level 8.4L, Corrected Calcium 8.8, Total Bilirubin 1.0, Aspartate Amino Transf (AST/SGOT) 10, Alanine Aminotransferase (ALT/SGPT) 7, Alkaline Phosphatase 39L, Total Protein 5.5L, Albumin 3.5 Assessment/Plan Assessment/Plan Assessment/Plan ruq abdominal pain biliary dyskinesia reviewed ct/us/and hida feel pain is likely due to biliary dyskinesia we discussed risks and benefits of laparoscopic cholecystectomy with intraoperative cholangiogram all other indicated procedures and wishes to proceed npo after midnight surgery tomorrow. Clinical Quality Measures DVT/VTE Risk/Contraindication: Contraindications-Pharm: Other *list below* Other: possible OR BISMARK MULLER DO Dec 25, 2022 16:01
[2022-12-25 16:06] VITALS: BP 110/68
[2022-12-25] MEDS: MONTELUKAST 10 MG TABLET PO SCH (19:15)
[2022-12-25 20:05] VITALS: BP 114/77
[2022-12-25] MEDS: PANTOPRAZOLE INJECTION 200 MG in NS (IVPB) 100 ML 100 ML IV SCH (21:11)
[2022-12-26] VITALS (11 sets, daily range): BP systolic 95–132; BP diastolic 58–86
[2022-12-26] MEDS: NS IV 1000 ML 1,000 ML IV SCH ×2 (04:47→10:59)
[2022-12-26 05:44] LABS: BASOPHILS # (AUTO) 0.1 10^3/uL (0.0-0.1); BASOPHILS % (AUTO) 1 % (0-10); EOSINOPHILS # (AUTO) 0.3 10^3/uL (0.0-0.3); EOSINOPHILS % (AUTO) 6 % (0-10); HEMATOCRIT 43 % (35-52); HEMOGLOBIN 14.4 g/dL (11.5-16.0); LYMPHOCYTES # (AUTO) 1.1 10^3/uL (1.0-4.0); LYMPHOCYTES % (AUTO) 25 % (12-44); MEAN CORPUSCULAR HEMOGLOBIN 31 pg (25-34); MEAN CORPUSCULAR HGB CONC 33 g/dL (32-36); MEAN CORPUSCULAR VOLUME 92 fL (80-99); MEAN PLATELET VOLUME 10.1 fL (9.0-12.2); MONOCYTES # (AUTO) 0.5 10^3/uL (0.0-1.0); MONOCYTES % (AUTO) 10 % (0-12); NEUTROPHILS # (AUTO) 2.6 10^3/uL (1.8-7.8); NEUTROPHILS % (AUTO) 58 % (42-75); PLATELET COUNT 231 10^3/uL (130-400); WHITE BLOOD COUNT 4.5 10^3/uL (4.3-11.0)
[2022-12-26 05:53] LABS: ALBUMIN 3.8 GM/DL (3.2-4.5)
[2022-12-26 05:54] LABS: POTASSIUM 3.7 MMOL/L (3.6-5.0)
[2022-12-26 05:55] LABS: CALCIUM 8.8 MG/DL (8.5-10.1)
[2022-12-26 05:56] LABS: TOTAL PROTEIN 6.1 GM/DL (6.4-8.2)
[2022-12-26 05:58] LABS: BILIRUBIN,TOTAL 1.2 MG/DL (0.1-1.0)
[2022-12-26 06:00] LABS: CREATININE SERUM 0.79 MG/DL (0.60-1.30)
[2022-12-26] MEDS: KETOROLAC INJ 15 MG/ML VIAL IV PRN ×2 (06:09→12:28)
[2022-12-26] MEDS: FLUTICASONE/VILANTEROL 100/25 MCG (7 DOSES) IH SCH (07:42)
--- NOTE | 2022-12-26 09:40 | Progress Note ---
CADE FLORENTINO 12/26/22 0940: Subjective Date Seen by a Provider: Dec 26, 2022 Time Seen by a Provider: 09:32 Subjective/Events-last exam Patient seen and examined at bedside. She is resting comfortably. Reports mild headache. Her abdominal pain is mostly subsided. She has been NPO since midnight. Denies N/V/D. Denies fevers/chills. General surgery planning lap isac later today for symptomatic biliary dyskinesia. Hospital Course: Alena Bruce is a 47yo F admitted for RUQ abdominal pain as a direct admission from Dr Quiroga's clinic HPI from admit "Alena Bruce in a 47yo F with past medical history of migraines, prolactinoma, asthma, and HTN who presents as a direct admission from Dr Quiroga's clinic on 12/25. Chief complaint is RUQ abdominal pain and nausea. Her RUQ pain began mid day 12/22 after she ate a hamburger for lunch. The pain is described as crampy and intermittent. She has never had pain like this before. H er pain does not radiate to other areas of her abdomen. The pain has mostly subsided in regards to severity and frequency but she still notices it. Her nausea is improved by the time of admission but she does report emesis the night her symptoms started. Her appetite is diminished. Denies history of any abdominal surgery. She denies fever/chills. Has had regular BMs and voiding or urine. She is in the process of changing endocrinologists in regards to managing her prolactinoma but reports her last scan showed significant shrinkage of her tumor on cabergoline." She was placed on clear liquid diet and imaging was obtained to evaluate etiologies of her abdominal pain. CT of the abdomen and pelvis showed normal appearing liver, gallbladder, and pancreas. Did show finding consistent with constipation. RUQ ultrasound did not reveal and gallbladder wall thickening, edema, or stones/sludge present in gallbladder. HIDA scan then revealed a gallbladder ejection fraction of 30% which is consistent with biliary dyskines ia. General surgery was consulted on admission and after reviewing the HIDA discussed the risks and benefits of a laparoscopic cholecystectomy for symptomatic biliary dyskinesia. Patient ultimately agreed and was made NPO evening of 12/25. Surgery is planned for this afternoon 12/26. Vital signs were stable with no fever. Her WBC count was within normal limits. She received IV fluids and home meds were restarted. She will receive cefazolin per general surgery. Possible discharge after surgery. She will follow up with Dr Quiroga and Dr Moore as an outpatient. Review of Systems General: No Chills, No Night Sweats HEENT: Head Aches; No Visual Changes Pulmonary: No Dyspnea, No Cough Cardiovascular: No: Chest Pain, Palpitations Gastrointestinal: No: Nausea, Vomiting, Abdominal Pain Genitourinary: No Dysuria, No Hematuria Neurological: No: Change in speech, Confusion Focused Exam Lactate Level 12/24/22 18:28: Lactic Acid Level 0.95 Objective Exam Last Set of Vital Signs Vital Signs Date Time Temp Pulse Resp B/P (MAP) Pulse Ox O2 Delivery O2 Flow Rate FiO2 12/26/22 07:53 37.5 75 20 99/62 (74) 97 Room Air Capillary Refill : I&O Intake and Output 12/26/22 00:00 Intake Total 1660 ml Balance 1660 ml Intake Oral 560 ml IV Total 1100 ml # Voids 5 General: Alert, Oriented X3, Cooperative HEENT: Atraumatic, EOMI Neck: Supple, No JVD Lungs: Clear to Auscultation, Normal Air Movement Heart: Regular Rate, Normal S1, Normal S2 Abdomen: Soft, No Tenderness Extremities: No Cyanosis, No Edema Neuro: Normal Speech Psych/Mental Status: Mental Status NL, Mood NL Results Lab Laboratory Tests 12/26/22 05:11: White Blood Count 4.5, Red Blood Count 4.71, Hemoglobin 14.4, Hematocrit 43, Mean Corpuscular Volume 92, Mean Corpuscular Hemoglobin 31, Mean Corpuscular Hemoglobin Concent 33, Red Cell Distribution Width 11.5, Platelet Count 231, Mean Platelet Volume 10.1, Immature Granulocyte % (Auto) 0, Neutrophils (%) (Auto) 58, Lymphocytes (%) (Auto) 25, Monocytes (%) (Auto) 10, Eosinophils (%) ( Auto) 6, Basophils (%) (Auto) 1, Neutrophils # (Auto) 2.6, Lymphocytes # (Auto) 1.1, Monocytes # (Auto) 0.5, Eosinophils # (Auto) 0.3, Basophils # (Auto) 0.1, Immature Granulocyte # (Auto) 0.0, Sodium Level 141, Potassium Level 3.7, Chloride Level 109H, Carbon Dioxide Level 22, Anion Gap 10, Blood Urea Nitrogen 6L, Creatinine 0.79, Estimat Glomerular Filtration Rate 93, BUN/Creatinine Ratio 8, Glucose Level 76, Calcium Level 8.8, Corrected Calcium 9.0, Total Bilirubin 1.2H, Aspartate Amino Transf (AST/SGOT) 13, Alanine Aminotransferase (ALT/SGPT) 7, Alkaline Phosphatase 42, Total Protein 6.1L, Albumin 3.8 Assessment/Plan Assessment/Plan Assess & Plan/Chief Complaint RUQ abdominal pain Nausea RUQ ultrasound revealed normal appearance of liver and gallbladder, no distention, wall thickening/edema, or stones noted CT ab/pelv noted some dilated large bowel consistent with constipation. Normal appearance of liver, gallbladder, and pancreas Lipase and amylase within normal limits Qualitative bhcg positive with quantitative level of 9, this is likely related to pituitary adenoma HIDA revealed gallbladder EF of 30% which is consistent with mild biliary dyskinesia, due to symptoms general surgery planning lap isac today NPO since midnight General surgery consulted appreciate recs preop cefazolin Continue zofran 4mg q6hr prn Pituitary adenoma Takes cabergoline 0.25mg every saturday Follows with endocrine Hx of asthma HTN Depression resume home meds Diet- NPO for surgery DVT ppx- SCDs Code status- full Clinical Quality Measures DVT/VTE Risk/Contraindication: Contraindications-Pharm: Other *list below* Other: possible OR HILARIA QUIROGA DO 12/26/222139: Supervisory-Addendum Brief Verification & Attestation Participated in pt care: history, MDM, physical Personally performed: exam, history, MDM, supervision of care Care discussed with: Medical Student Procedures: n/a Results interpretation: Verified all documentation Verification and Attestation of Medical Student E/M Service A medical student performed and documented this service in my presence. I reviewed and verified all information documented by the medical student and made modifications to such information, when appropriate. I personally performed the physical exam and medical decision making. Hilaria Quiroga Dec 26, 2022,21:40 CADE FLORENTINO Dec 26, 2022 09:40 HILARIA QUIROGA DO Dec 26, 2022 21:40
[2022-12-26] MEDS ORDERED: ROCURONIUM 50 MG/5 ML VIAL IV ONE (10:13)
[2022-12-26] MEDS ORDERED: ONDANSETRON INJECTION 4 MG/2 ML (SDV) ONE ×2 (10:13→11:40)
[2022-12-26] MEDS ORDERED: LIDOCAINE PF 2% 5 ML VIAL ONE (10:13)
[2022-12-26] MEDS ORDERED: GLYCOPYRROLATE INJ 0.2 MG/ML 2 ML VIAL ONE (10:13)
[2022-12-26] MEDS ORDERED: NEOSTIGMINE 1 MG/1ML 10 ML VIAL ONE (10:13)
[2022-12-26] MEDS ORDERED: MIDAZOLAM INJ 2 MG/2 ML VIAL ONE (10:13)
[2022-12-26] MEDS ORDERED: dexAMETHasone INJ 10 MG/ML 1 ML VIAL ONE (10:13)
[2022-12-26] MEDS ORDERED: proPOfol INJECTION 200 MG/20 ML VIAL IV ONE (10:13)
[2022-12-26] MEDS ORDERED: fentaNYL INJECTION 100 MCG/2 ML VIAL ONE ×2 (10:13→11:22)
--- NOTE | 2022-12-26 10:40 | Progress Note - Surgery ---
Subjective Date Seen by a Provider: Dec 26, 2022 Time Seen by a Provider: 10:16 Subjective/Events-last exam Doing okay today. Pain controlled. NPO. Denies fever sweats chills shortness of breath or chest pain. Focused Exam Lactate Level 12/24/22 18:28: Lactic Acid Level 0.95 Objective Exam Vital Signs Date Time Temp Pulse Resp B/P (MAP) Pulse Ox O2 Delivery O2 Flow Rate FiO2 12/26/22 07:53 37.5 75 20 99/62 (74) 97 Room Air 12/26/22 07:44 98 Room Air 12/26/22 03:31 36.6 77 18 109/73 (85) 99 Room Air 12/26/22 00:01 36.8 75 20 120/82 (95) 99 Room Air 12/25/22 20:05 36.6 77 20 114/77 (89) 99 Room Air 12/25/22 19:20 Room Air 12/25/22 16:06 36.4 74 20 110/68 (82) 99 Room Air 12/25/22 11:45 36.8 73 18 108/63 (78) 98 Room Air I & O 12/26/22 07:00 Intake Total 1760 ml Balance 1760 ml Capillary Refill : General Appearance: No Apparent Distress, WD/WN HEENT: PERRL/EOMI, Moist Mucous Membranes Neck: Supple; No JVD Respiratory: Lungs Clear, Normal Breath Sounds, No Accessory Muscle Use, No Respiratory Distress Cardiovascular: Regular Rate, Rhythm, Normal Peripheral Pulses Gastrointestinal: soft, tenderness (right upper quadrant) Extremity: Non Tender, No Pedal Edema Neurologic/Psychiatric: Alert, Oriented x3, Normal Mood/Affect Skin: Normal Color, Warm/Dry Results Lab Laboratory Tests 12/26/22 05:11: White Blood Count 4.5, Red Blood Count 4.71, Hemoglobin 14.4, Hematocrit 43, Mean Corpuscular Volume 92, Mean Corpuscular Hemoglobin 31, Mean Corpuscular Hemoglobin Concent 33, Red Cell Distribution Width 11.5, Platelet Count 231, Mean Platelet Volume 10.1, Immature Granulocyte % (Auto) 0, Neutrophils (%) (Auto) 58, Lymphocytes (%) (Auto) 25, Monocytes (%) (Auto) 10, Eosinophils (%) (Auto) 6, Basophils (%) (Auto) 1, Neutrophils # (Auto) 2.6, Lymphocytes # (Auto) 1.1, Monocytes # (Auto) 0.5, Eosinophils # (Auto) 0.3, Basophils # (Auto) 0.1, Immature Granulocyte # (Auto) 0.0, Sodium Level 141, Potassium Level 3.7, Chlor cynthia Level 109H, Carbon Dioxide Level 22, Anion Gap 10, Blood Urea Nitrogen 6L, Creatinine 0.79, Estimat Glomerular Filtration Rate 93, BUN/Creatinine Ratio 8, Glucose Level 76, Calcium Level 8.8, Corrected Calcium 9.0, Total Bilirubin 1.2H , Aspartate Amino Transf (AST/SGOT) 13, Alanine Aminotransferase (ALT/SGPT) 7, Alkaline Phosphatase 42, Total Protein 6.1L, Albumin 3.8 Assessment/Plan Assessment/Plan Assessment/Plan RUQ abdominal pain Biliary dyskinesia Nausea Pituitary adenoma NPO for surgery lap isac c ioc discussed with Dr. Gallego False positive test due to pituitary adenoma patient discussed this and understands and risk if not. Wishes to proceed. Clinical Quality Measures DVT/VTE Risk/Contraindication: Contraindications-Pharm: Other *list below* Other: possible OR BISMARK MULLER DO Dec 26, 2022 10:40
[2022-12-26] MEDS: SENNOSIDES 8.6 MG TABLET PO SCH (10:59)
[2022-12-26] MEDS: DOCUSATE SODIUM 100 MG CAPSULE PO SCH (10:59)
[2022-12-26] MEDS ORDERED: LIDOCAINE 1% w/EPI 1:100,000 20 ML VIAL INJ ONE (11:15)
--- NOTE | 2022-12-26 11:22 | Progress Note-Post Operative ---
Post-Operative Progess Note Surgeon (s)/Contaminated Land Consultant (s) Surgeon BISMARK MULLER DO Contaminated Land Consultant: Dr. Martínez to assist in retraction dissection and closure Pre-Operative Diagnosis biliary dyskinesia Post-Operative Diagnosis same Procedure & Operative Findings Date of Procedure 12/26/22 Procedure Performed/Findings PROCEDURE: Laparoscopic cholecystectomy with intraoperative cholangiogram. COMPLICATIONS: None. PROCEDURE: The patient was taken to the operating suite and was prepped and draped in sterile fashion. A surgical pause was performed. Just superior to the umbilicus, a 12 mm incision was made. Dissection was taken down to the fascia, which was then scored and grasped with a Tiffany and the abdomen was then entered. A 0 Vicryl suture was placed in a [id number] fashion and a Pisano trocar was placed and secured. Pneumoperitoneum was achieved. A 5mm trochar place in the subxyphoid and 2 in the right upper quadrant. The gallbladder was then grasped and elevated. Slight adhesions taken down. The cystic duct, and cystic artery were then dissected out. Clip was placed on the distal portion of the cystic duct which was then partially transected. An arrow catheter was inserted into the duct. The cholangiogram was then performed. No filing defects and contrast made its way into the duodenum. Catheter removed. Clips were placed on proximal portion of the cystic duct and then the duct was then transected. Clips were placed along the proximal and distal portion of the cystic artery which was then transected. Hook cautery was used to dissect the gallbladder from the gallbladder fossa achieving hemostasis. The gallbladder was placed in an Endobag and removed through the 12 mm trocar site. The abdomen was then reinspected. Copious amounts of irrigation were used to irrigate the abdomen and there were no signs of active bleeding. Hemostasis had been achieved. The 12 mm fascial defect was then closed with 0 Vicryl suture that had been placed in a [id number] fashion. The abdomen was then desufflated, the trocars were removed. The abdomen was then washed and dried. The skin was then closed using 4-0 Monocryl in a subcuticular fashion. The abdomen was washed and dried and Skin Affix was place over incisions. Patient tolerated the procedure well without any complications and was taken to the recovery room in stable condition. Anesthesia Type general Estimated Blood Loss Estimated blood loss (mL): minimal Specimens/Packing Specimens Removed gallbladder BISMARK MULLER DO Dec 26, 2022 11:22
[2022-12-26] MEDS ORDERED: ACHD5005 PO (11:23)
[2022-12-26] MEDS ORDERED: DOCU-143 PO (11:23)
--- NOTE | 2022-12-26 11:24 | Discharge Inst-Simple/Standard ---
Discharge Inst-Standard Discharge Medications New, Converted or Re-Newed RX: Transmitted to Pharmacy Patient Instructions/Follow Up Plan of Care/Instructions/FU: 2 weeks mar Activity as Tolerated: Yes Discharge Diet: Regular Diet Other Inst to Patient Follow up Appt: Make appointment for 2 weeks. Instructions: No lifting greater than 10 pounds. No strenuous activity. May shower in 24 hours, no tub bath or soaking. Use incentive spirometer at home as directed. No Smoking Skin/Wound Care: You have special glue over incision, it will fall off on it's own. Symptoms to Report: Appetite Changes, Extremity Discoloration, Numbness/Tingling, Swelling Increased, Bleeding Excessive, Eyesight Changes, Pain Increased, Urine Color Change, Constipation(Persistent), Fever over 101 degree F, Pain/Pressure in chest, Urinating Difficulty, Cough Up/Vomit Blood, Heart Beat Irreg/Pounding, Pain/Pressure in jaw, Vaginal Bleeding Increase, Cramps in feet or legs, Lightheadedness, Pain/Pressure in shoulder, Diarrhea(Persistent), Memory Changes Suddenly, Questions/Concerns, Weight gain consecutive days, Dizziness/Fainting, Nausea/Vomiting, Shortness of Breath, Weight gain over 2 pounds. If eyes or skin turn yellow notify physician. If questions or concerns contact your physician Or seek help at emergency department. BISMARK MULLER DO Dec 26, 2022 11:24
[2022-12-26] MEDS ORDERED: ceFAZolin INJECTION 2,000 MG in NS (IVPB) 50 ML 50 ML IV NR (11:30)
[2022-12-26] MEDS ORDERED: HYDROcodone/ACETAMINOPHEN 5 MG/325 MG TABLET PO PRN (11:30)
--- NOTE | 2022-12-26 11:33 | Anesthesia-General Post-Op ---
General Patient Condition Mental Status/LOC: Same as Preop Cardiovascular: Satisfactory Nausea/Vomiting: Absent Respiratory: Satisfactory Pain: Controlled Complications: Absent Post Op Complications Complications None Follow Up Care/Instructions Patient Instructions None needed. Anesthesia/Patient Condition Patient Condition Patient is awake in PACU and doing well. She does complain of right shoulder pain, which I explained to her is common after a laparoscopic procedure. She otherwise has stable vital signs, no apparent adverse anesthesia problems. No complications reported per nursing. ROCÍO BLAIR DO Dec 26, 2022 11:33
--- NOTE | 2022-12-26 11:34 | Discharge Summary ---
Diagnosis/Chief Complaint Date of Admission Dec 24, 2022 at 18:07 Date of Discharge Discharge Date: Dec 26, 2022 Discharge Diagnosis Acute abdominal pain due to biliary dyskinesia Discharge Summary Discharge Physical Examination Allergies: Coded Allergies: No Known Drug Allergies (Unverified , 03/24/18) Vitals & I&Os Vital Signs Date Time Temp Pulse Resp B/P (MAP) Pulse Ox O2 Delivery O2 Flow Rate FiO2 12/26/22 17:25 12/26/22 15:44 36.7 88 20 95 Room Air 12/26/22 11:50 10.00 General Appearance: Alert, Oriented X3, Cooperative Respiratory: Clear to Auscultation Cardiovascular: Regular Rate Psych/Mental Status: Mental Status NL Hospital Course Was the Problem List Reviewed?: Yes Hospital Course: Alena Bruce is a 47yo F admitted for RUQ abdominal pain as a direct admission from Dr Gallego's clinic HPI from admit "Alena Bruce in a 47yo F with past medical history of migraines, prolactinoma, asthma, and HTN who presents as a direct admission from Dr Gallego's clinic on 12/25. Chief complaint is RUQ abdominal pain and nausea. Her RUQ pain began mid day 12/22 after she ate a hamburger for lunch. The pain is described as crampy and intermittent. She has never had pain like this before. Her pain does not radiate to other areas of her abdomen. The pain has mostly subsided in regards to severity and frequency but she still notices it. Her nausea is improved by the time of admission but she does report emesis the night her symptoms started. Her appetite is diminished. Denies history of any abdominal surgery. She denies fever/chills. Has had regular BMs and voiding or urine. She is in the process of changing endocrinologists in regards to managing her prolactinoma but reports her last scan showed significant shrinkage of her tumor on cabergoline." She was placed on clear liquid diet and imaging was obtained to evaluate etiolo gies of her abdominal pain. CT of the abdomen and pelvis showed normal appearing liver, gallbladder, and pancreas. Did show finding consistent with constipation. RUQ ultrasound did not reveal and gallbladder wall thickening, edema, or stones/sludge present in gallbladder. HIDA scan then revealed a gallbladder ejection fraction of 30% which is consistent with biliary dyskinesia. General surgery was consulted on admission and after reviewing the HIDA discussed the risks and benefits of a laparoscopic cholecystectomy for symptomatic biliary dyskinesia. Patient ultimately agreed and was made NPO evening of 12/25. Surgery is planned for this afternoon 12/26. Vital signs were stable with no fever. Her WBC count was within normal limits. She received IV fluids and home meds were restarted. She will receive cefazolin per general surgery. Possible discharge after surgery. She will follow up with Dr Gallego and Dr Moore as an outpatient. Labs (last 24 hrs) Laboratory Tests 12/24/22 18:28: White Blood Count 6.2, Red Blood Count 5.25H, Hemoglobin 16.0, Hematocrit 47, Mean Corpuscular Volume 90, Mean Corpuscular Hemoglobin 31, Mean Corpuscular Hemoglobin Concent 34, Red Cell Distribution Width 11.8, Platelet Count 311, Mean Platelet Volume 9.8, Immature Granulocyte % (Auto) 0, Neutrophils (%) (Auto) 58, Lymphocytes (%) (Auto) 27, Monocytes (%) (Auto) 9, Eosinophils (%) (Auto) 5, Basophils (%) (Auto) 1, Neutrophils # (Auto) 3.6, Lymphocytes # (Auto) 1.7, Monocytes # (Auto) 0.6, Eosinophils # (Auto) 0.3, Basophils # (Auto) 0.1, Immature Granulocyte # (Auto) 0.0, Sodium Level 138, Potassium Level 3.7, Chloride Level 104, Carbon Dioxide Level 21, Anion Gap 13, Blood Urea Nitrogen 13, Creatinine 0.88, Estimat Glomerular Filtration Rate 82, BUN/Creatinine Ratio 15, Glucose Level 90, Lactic Acid Level 0.95, Calcium Level 9.4, Corrected Calcium 9.0, Total Bilirubin 0.6, Aspartate Amino Transf (AST/SGOT) 13, Alanine Aminotransferase (ALT/SGPT) 8, Alkaline Phosphatase 54, Total Protein 7.4, Album in 4.5, Amylase Level 66, Lipase 24, Prolactin 31.0, Human Chorionic Gonadotropin, Quant 9H, Serum Test, Qualitative POSITIVE 12/24/22 21:50: Urine Color YELLOW, Urine Clarity CLEAR, Urine pH 5.5, Urine Specific Hancock 1.010L, Urine Protein NEGATIVE, Urine Glucose (UA) NEGATIVE, Urine Ketones 1+H, Urine Nitrite NEGATIVE, Urine Bilirubin NEGATIVE, Urine Urobilinogen 0.2, Urine Leukocyte Esterase NEGATIVE, Urine RBC (Auto) NEGATIVE, Urine RBC 0-2, Urine WBC 0-2, Urine Squamous Epithelial Cells 25-50H, Urine Crystals NONE, Urine Bacteria TRACE, Urine Casts NONE, Urine Mucus SMALLH, Urine Culture Indicated NO 12/25/22 04:48: White Blood Count 4.9, Red Blood Count 4.49, Hemoglobin 13.8, Hematocrit 41, Mean Corpuscular Volume 91, Mean Corpuscular Hemoglobin 31, Mean Corpuscular Hemoglobin Concent 34, Red Cell Distribution Width 11.8, Platelet Count 265, Mean Platelet Volume 10.2, Immature Granulocyte % (Auto) 0, Neutrophils (%) (Auto) 53, Lymphocytes (%) (Auto) 29, Monocytes (%) (Auto) 10, Eosinophils (%) (Auto) 6, Basophils (%) (Auto) 2, Neutrophils # (Auto) 2.6, Lymphocytes # (Auto) 1.4, Monocytes # (Auto) 0.5, Eosinophils # (Auto) 0.3, Basophils # (Auto) 0.1, Immature Granulocyte # (Auto) 0.0, Sodium Level 141, Potassium Level 4.0, Chloride Level 111H, Carbon Dioxide Level 23, Anion Gap 7, Blood Urea Nitrogen 9, Creatinine 0.86, Estimat Glomerular Filtration Rate 84, BUN/Creatinine Ratio 10, Glucose Level 86, Calcium Level 8.4L, Corrected Calcium 8.8, Total Bilirubin 1.0, Aspartate Amino Transf (AST/SGOT) 10, Alanine Aminotransferase (ALT/SGPT) 7, Alkaline Phosphatase 39L, Total Protein 5.5L, Albumin 3.5 12/26/22 05:11: White Blood Count 4.5, Red Blood Count 4.71, Hemoglobin 14.4, Hematocrit 43, Mean Corpuscular Volume 92, Mean Corpuscular Hemoglobin 31, Mean Corpuscular Hemoglobin Concent 33, Red Cell Distribution Width 11.5, Platelet Count 231, Mean Platelet Volume 10.1, Immature Granulocyte % (Auto) 0, Neutrophils (%) (Auto) 58, Lymphocytes (%) (Auto) 25, Monocytes (%) (Auto) 10, Eosinophils (%) (Auto) 6, Basophils (%) (Auto) 1, Neutrophils # (Auto) 2.6, Lymphocytes # (Auto) 1.1, Monocytes # (Auto) 0.5, Eosinophils # (Auto) 0.3, Basophils # (Auto) 0.1, Immature Granulocyte # (Auto) 0.0, Sodium Level 141, Potassium Level 3.7, Chloride Level 109H, Carbon Dioxide Level 22, Anion Gap 10, Blood Urea Nitrogen 6L, Creatinine 0.79, Estimat Glomerular Filtration Rate 93, BUN/Creatinine Ratio 8, Glucose Level 76, Calcium Level 8.8, Corrected Calcium 9.0, Total Bilirubin 1.2H, Aspartate Amino Transf (AST/SGOT) 13, Alanine Aminotransferase (ALT/SGPT) 7, Alkaline Phosphatase 42, Total Protein 6.1L, Albumin 3.8 Microbiology 12/25/22 MRSA Screen - Final, Complete No growth Pending Labs Microbiology Date/Time Source Procedure Growth Status 12/25/22 16:22 Nasal MRSA Screen - Final No growth Complete Laboratory Tests 12/24/22 18:28: White Blood Count 6.2, Red Blood Count 5.25, Hemoglobin 16.0, Hematocrit 47, Mean Corpuscular Volume 90, Mean Corpuscular Hemoglobin 31, Mean Corpuscular Hemoglobin Concent 34, Red Cell Distribution Width 11.8, Platelet Count 311, Mean Platelet Volume 9.8, Immature Granulocyte % (Auto) 0, Neutrophils (%) (Auto) 58, Lymphocytes (%) (Auto) 27, Monocytes (%) (Auto) 9, Eosinophils (%) (Auto) 5, Basophils (%) (Auto) 1, Neutrophils # (Auto) 3.6, Lymphocytes # (Auto) 1.7, Monocytes # (Auto) 0.6, Eosinophils # (Auto) 0.3, Basophils # (Auto) 0.1, Immature Granulocyte # (Auto) 0.0, Sodium Level 138, Potassium Level 3.7, Chloride Level 104, Carbon Dioxide Level 21, Anion Gap 13, Blood Urea Nitrogen 13, Creatinine 0.88, Estimat Glomerular Filtration Rate 82, BUN/Creatinine Ratio 15, Glucose Level 90, Lactic Acid Level 0.95, Calcium Level 9.4, Corrected Calcium 9.0, Total Bilirubin 0.6, Aspartate Amino Transf (AST/SGOT) 13, Alanine Aminotransferase (ALT/SGPT) 8, Alkaline Phosphatase 54, Total Protein 7.4, Albumin 4.5, Amylase Level 66, Lipase 24, Prolactin 31.0, Human Chorionic Gonadotropin, Quant 9, Serum Test, Qualitative POSITIVE 12/24/22 21:50: Urine Color YELLOW, Urine Clarity CLEAR, Urine pH 5.5, Urine Specific Hancock 1.010, Urine Protein NEGATIVE, Urine Glucose (UA) NEGATIVE, Urine Ketones 1+, Urine Nitrite NEGATIVE, Urine Bilirubin NEGATIVE, Urine Urobilinogen 0.2, Urine Leukocyte Esterase NEGATIVE, Urine RBC (Auto) NEGATIVE, Urine RBC 0-2, Urine WBC 0-2, Urine Squamous Epithelial Cells 25-50, Urine Crystals NONE, Urine Bacteria TRACE, Urine Casts NONE, Urine Mucus SMALL, Urine Culture Indicated NO 12/25/22 04:48: White Blood Count 4.9, Red Blood Count 4.49, Hemoglobin 13.8, Hematocrit 41, Mean Corpuscular Volume 91, Mean Corpuscular Hemoglobin 31, Mean Corpuscular Hemoglobin Concent 34, Red Cell Distribution Width 11.8, Platelet Count 265, Mean Platelet Volume 10.2, Immature Granulocyte % (Auto) 0, Neutrophils (%) (Auto) 53, Lymphocytes (%) (Auto) 29, Monocytes (%) (Auto) 10, Eosinophils (%) (Auto) 6, Basophils (%) (Auto) 2, Neutrophils # (Auto) 2.6, Lymphocytes # (Auto) 1.4, Monocytes # (Auto) 0.5, Eosinophils # (Auto) 0.3, Basophils # (Auto) 0.1, Immature Granulocyte # (Auto) 0.0, Sodium Level 141, Potassium Level 4.0, Chlor cynthia Level 111, Carbon Dioxide Level 23, Anion Gap 7, Blood Urea Nitrogen 9, Creatinine 0.86, Estimat Glomerular Filtration Rate 84, BUN/Creatinine Ratio 10, Glucose Level 86, Calcium Level 8.4, Corrected Calcium 8.8, Total Bilirubin 1.0, Aspartate Amino Transf (AST/SGOT) 10, Alanine Aminotransferase (ALT/SGPT) 7, Alkaline Phosphatase 39, Total Protein 5.5, Albumin 3.5 12/26/22 05:11: White Blood Count 4.5, Red Blood Count 4.71, Hemoglobin 14.4, Hematocrit 43, Mean Corpuscular Volume 92, Mean Corpuscular Hemoglobin 31, Mean Corpuscular Hemoglobin Concent 33, Red Cell Distribution Width 11.5, Platelet Count 231, M carlos Platelet Volume 10.1, Immature Granulocyte % (Auto) 0, Neutrophils (%) (Auto) 58, Lymphocytes (%) (Auto) 25, Monocytes (%) (Auto) 10, Eosinophils (%) (Auto) 6, Basophils (%) (Auto) 1, Neutrophils # (Auto) 2.6, Lymphocytes # (Auto) 1.1, Monocytes # (Auto) 0.5, Eosinophils # (Auto) 0.3, Basophils # (Auto) 0.1, Immature Granulocyte # (Auto) 0.0, Sodium Level 141, Potassium Level 3.7, Chloride Level 109, Carbon Dioxide Level 22, Anion Gap 10, Blood Urea Nitrogen 6, Creatinine 0.79, Estimat Glomerular Filtration Rate 93, BUN/Creatinine Ratio 8, Glucose Level 76, Calcium Level 8.8, Corrected Calcium 9.0, Total Bilirubin 1.2, Aspartate Amino Transf (AST/SGOT) 13, Alanine Aminotransferase (ALT/SGPT) 7, Alkaline Phosphatase 42, Total Protein 6.1, Albumin 3.8 Discharge Home Medications: Active Scripts Active Hydrocodone-Acetamin 5-325 mg (Hydrocodone/Acetaminophen) 5 Mg-325 Mg Tablet 1 Each PO Q4H PRN Colace (Docusate Sodium) 100 Mg Capsule 100 Mg PO BID Reported Ventolin Hfa (Albuterol Sulfate) 1 Puff Puff 2 Puff INH Q4H PRN Symbicort 160-4.5 Mcg Inhaler (Budesonide/Formoterol Fumarate) 160 Mcg-4.5 Mcg/Actuation Hfa.aer.ad 2 Puff INH BID Cabergoline 0.5 Mg Tablet 0.25 Mg PO SUN TAKES OF A 0.5MG TAB Norethindrone 0.35 Mg Tablet 0.35 Mg PO DAILY Pantoprazole Sodium 40 Mg Tablet.dr 40 Mg PO DAILY Zolmitriptan Odt (Zolmitriptan) 5 Mg Tab.rapdis 5 Mg PO DAILY PRN Ozempic (Semaglutide) 2 Mg/0.75 Ml (8 Mg/3 Ml) Pen.injctr 1 Mg SQ THUR Cymbalta (Duloxetine HCl) 60 Mg Capsule.dr 60 Mg PO DAILY Montelukast Sodium 10 Mg Tablet 10 Mg PO HS Triamterene-Hctz 37.5-25 mg Tb (Triamterene/Hydrochlorothiazid) 37.5 Mg-25 Mg Tablet 1 Ea PO DAILY Cetirizine HCl 10 Mg Tablet 10 Mg PO DAILY Instructions to patient/family Please see electronic discharge instructions given to patient. Clinical Quality Measures DVT/VTE Risk/Contraindication: Contraindications-Pharm: Other *list below* Other: possible OR ARIEL GALLEGO DO Dec 26, 2022 11:34
[2022-12-26] MEDS ORDERED: SEVOFLURANE (ULTANE) 15 ML INHAL SOLN ONE (11:36)
[2022-12-26] MEDS ORDERED: morphine INJ 10 MG/ML 1ML (SYR OR VIAL) ONE (11:41)
[2022-12-26] MEDS ORDERED: HYDROmorphone INJECTION 2 MG/ML VIAL IV ONE (11:45)
[2022-12-26] MEDS ORDERED: ONDANSETRON INJECTION 4 MG/2 ML (SDV) IVP PRN (11:45)
[2022-12-26] MEDS ORDERED: morphine INJ 10 MG/ML 1ML (SYR OR VIAL) IVP ONE (11:45)
--- NOTE | 2022-12-26 11:58 | Diagnostic Imaging Report ---
INDICATION: Cholecystectomy. Operative cholangiogram performed in the routine fashion with injection of the cystic duct stump in surgery. 26 images were obtained, 7.1 seconds of fluoroscopy time was used. 2.02 mGy of exposure. FINDINGS: The biliary tree was nondilated. Contrast fills the biliary tree. There is passage of contrast to the duodenum without obstruction. A small amount of contrast refluxes into the pancreatic duct. IMPRESSION: Unremarkable operative cholangiogram. Dictated by: Dictated on workstation # [id number]
[2022-12-26] MEDS: NORETHINDRONE PO SCH (13:10)
[2022-12-26] MEDS: DULoxetine 30 MG CAPSULE PO SCH (13:10)
[2022-12-26] MEDS: TRIAMTERENE/HCTZ 75-50 (MAXZIDE,DYAZIDE) TABLET PO SCH (13:11)
== END 2022-12-26 17:28 | disposition home or self-care (01) ==
LOC: 4TH 18:07
PROVIDERS: ADMIT Internal Medicine; ATTEND Internal Medicine
DX: K82.8 Other specified diseases of gallbladder (principal); K81.1 Chronic cholecystitis; K66.8 Other specified disorders of peritoneum; D35.2 Benign neoplasm of pituitary gland; J45.909 Unspecified asthma, uncomplicated; I10 Essential (primary) hypertension; F32.A Depression, unspecified; Z79.899 Other long term (current) drug therapy; Z28.310 Unvaccinated for COVID-19
CPT/HCPCS: 47563; 74177; 76000; 76705; 78227; 80053 ×3; 81000; 82150; 83605; 83690; 84146; 84702; 84703; 85025 ×3; 87081; 88304; 94640; 94664; 96365; 96366; 96375 ×2; 96376; A9537; 36415

== ENCOUNTER → 2023-01-17 | Outpatient (CLI) | payer BC ==
[~2023-01-17] MED LIST changes: +ACHD5005 PO; +BUDE10.2 INH; +CABE0.5T PO; +DOCU-143 PO; +NORE0.3520 PO; +PANT40TA52 PO; +RT-ALBUINH INH; +SEMA1PEN3 SQ; +SEMA2PEN SQ; +ZOLM5TAB PO
--- NOTE | 2023-01-17 18:08 | Diagnostic Imaging Report ---
EXAMINATION: Right hand radiographs, 3 views. COMPARISON: None. HISTORY: 47-year-old female, right hand pain. Injury of the third finger. FINDINGS: There is no identified acute fracture. There is no subluxation or dislocation. The joint spaces are well preserved. There is no radiopaque foreign body. IMPRESSION: Unremarkable radiographs of the right hand. Dictated by: Dictated on workstation # [id number]
== END ==
LOC: RAD 14:08
PROVIDERS: ATTEND Internal Medicine
DX: M79.641 Pain in right hand (principal)
CPT/HCPCS: 73130

== ENCOUNTER → 2023-04-16 | Outpatient (CLI) | payer BC ==
[~2023-04-16] MED LIST changes: -MECL-149 PO; +MECL-291 PO
--- NOTE | 2023-04-16 10:32 | Diagnostic Imaging Report ---
EXAMINATION: 3D bilateral screening mammogram with CAD. INDICATION: Screening. COMPARISON: This study was compared to the prior exams of 04/13/2022, 01/31/2021, and 12/11/2019. PERSONAL HISTORY: At this time, there are no current complaints. FINDINGS: The fibroglandular tissue in both breasts is dense. This does limit the sensitivity of this exam. No primary or secondary sign of malignancy is noted. IMPRESSION: There is no radiographic evidence for malignancy. ACR BI-RADS Category 1: Negative. Result letter will be mailed to the patient. Note: At least 10% of breast cancer is not imaged by mammography. Dictated by: Dictated on workstation # [id number]
== END ==
LOC: RAD 07:45
PROVIDERS: ATTEND Internal Medicine
DX: Z12.31 Encounter for screening mammogram for malignant neoplasm of breast (principal)
CPT/HCPCS: 77063; 77067